=== PATIENT | female | born 1950 | race Caucasian/White ===

== ENCOUNTER → 2016-10-24 | Day surgery (SDC) | payer OTHER ==
--- NOTE | 2016-10-25 10:43 | PATH ---
Surgical Pathology Report Patient Name: MARIA L [facility]. Rec. #: [id number] /Age/Gender: 1950 (Age: 66) / F Account: [id number] Location: [facility] Taken: 10/24/2016 Received: 10/24/2016 Reported: 10/25/2016 Physicians: Renetta Mccord M.D. Specimen(s) Received A: LEFT BREAST SPECIMEN WITH CALCIFICATIONS B: LEFT BREAST SPECIMEN WITHOUT CALCIFICATIONS Clinical History Microcalcification, suspicious Final Diagnosis A. LEFT BREAST, WITH CALCIFICATION, STEREOTACTIC NEEDLE CORE BIOPSY: SCLEROSED FIBROADENOMA WITH STROMAL CALCIFICATION. B. LEFT BREAST, WITHOUT CALCIFICATION, STEREOTACTIC NEEDLE CORE BIOPSY: BREAST TISSUE WITH MARKED STROMAL SCLEROSIS SUGGESTIVE OF PORTION OF SCLEROSED FIBROADENOMA, AND ADDITIONAL PORTIONS OF BREAST TISSUE WITH FIBROCYSTIC CHANGES INCLUDING STROMAL FIBROSIS AND SCLEROSIS WITH DUCTAL DILATATION. Electronically Signed Jae Rossi M.D. Gross Description A. Received in formalin labeled "left breast with calcifications," is a 2.0 x 1.8 x 0.3 cm aggregate of multiple appiah-yellow, irregular to cylindrical portions of fibroadipose tissue. The formalin is filtered and the specimen is entirely submitted in one cassette. B. Received in formalin labeled "left breast without calcification," is a 1.5 x 1.4 x 0.3 cm aggregate of multiple appiah-yellow, irregular to cylindrical portions of fibroadipose tissue. The formalin is filtered and the specimen is entirely submitted in one cassette. Time to formalin fixation: 4 minutes Total formalin fixation time: Approximately 7 hours. 10/24/2016 saudi10/24/2016
== END | disposition home or self-care (01) ==
LOC: FMAMMOTONE 08:51
PROVIDERS: ATTEND Surgery
PROC: 0HBU3ZX Excision of Left Breast, Percutaneous Approach, Diagnostic (ICD-10-PCS; principal; 2016-10-24)
DX: D24.2 Benign neoplasm of left breast (principal); R92.1 Mammographic calcification found on diagnostic imaging of breast; N60.32 Fibrosclerosis of left breast; N64.89 Other specified disorders of breast
CPT/HCPCS: 19081; 88305-TC

== ENCOUNTER 2018-07-08 08:54 | Inpatient (IN) | payer OTHER ==
--- NOTE | 2018-07-08 09:09 | PDOC ---
History of Present Illness <Stella Freire - Last Filed: 07/08/18 12:20> - General History Source: Patient Exam Limitations: No Limitations - History of Present Illness Initial Comments: 07/08/18 10:16 The patient 63-year-old female with past medical history significant for CAD, asthma, hypercholesterolemia, insulin dependent diabetes, hypertension, recurrent urinary tract infections , nephrolithiasis s/p lithotripsy, osteoarthritis, obesity, who presents to the emergency department with complaints of fatigue, lower abdominal pain, diarrhea, nausea since returning from [place] 2 days ago, where she was on vacation x 1 month. She also complains of continued suprapubic pressure which is exacerbated with urination despite taking a 14 day course of antibiotics during her one month stay in [place]. Associated with lack of energy, generalized fatigue and nausea. She reports her abdominal pain is intermittent and localized to her lower abdomen. She reports a few episodes of loose stools which are yellow in color. She denies hematochezia. She reportedly took Imodium last night. She denies vomiting but reports nausea. Secondarily, she reports intermittent dizziness described as room spinning which was present while she was in [place], having been present for unclear duration of time.. She denies any exacerbating or alleviating factors of her dizziness. no known sick contacts. The patient denies chest pain, shortness of breath, headache, palpitations. The patient denies fever, chills, vomit, and constipation. Denies hematuria or blood BMs. Family History: Noncontributory Social History: Denies toxic habits Surgical history: MELANIE BSO, cholecystectomy Allergies: No known drug allergies PCP - Dr. Lang Painter And Body Mechanic Apprentice: Dr. Matias 07/08/18 12:53 <Corine Cornejo - Last Filed: 07/08/18 14:47> - General Chief Complaint: Pain, Acute Stated Complaint: ABD PAIN Time Seen by Provider: 07/08/18 09:06 Past History <Stella Freire - Last Filed: 07/08/18 12:20> - Past Medical History Asthma: Yes ("NO RECENT ATTACK") Diabetes: Yes HTN: Yes Hypercholesterolemia: Yes - Surgical History Appendectomy: Yes Cholecystectomy: Yes - Suicide/Smoking/Psychosocial Hx Smoking Status: No Smoking History: Never smoked Have you smoked in the past 12 months: No Number of Cigarettes Smoked Daily: 0 Hx Alcohol Use: No Drug/Substance Use Hx: No Substance Use Type: None Hx Substance Use Treatment: No <Corine Cornejo - Last Filed: 07/08/18 14:47> - Past Medical History Allergies/Adverse Reactions: Allergies Allergy/AdvReac Type Severity Reaction Status Date / Time No Known Drug Allergies Allergy Verified 02/14/15 09:39 Home Medications: Ambulatory Orders Atorvastatin Ca [Lipitor] 10 mg PO DAILY 08/04/13 Citalopram Hydrobromide [Celexa -] 20 mg PO DAILY 08/04/13 Insulin Detemir [Levemir Flexpen] 60 unit SQ BID 08/04/13 hydrOXYzine HCL [Atarax -] 25 mg PO DAILY 08/04/13 metFORMIN HCL [Glucophage] 1,000 mg PO DAILY 08/04/13 Aspirin [ASA -] 81 mg PO DAILY #0 02/14/15 Furosemide [Lasix -] 40 mg PO DAILY 02/14/15 Insulin (Levemir) [Levemir Flexpen -] 4 units SQ DAILY 02/14/15 Insulin Aspart [Novolog Flexpen] 10 unit SQ AC 02/14/15 Glipizide 5 mg PO DAILY 05/01/16 Lisinopril [Zestril] 20 mg PO DAILY 05/01/16 Metoprolol Succinate [Toprol Xl -] 25 mg PO DAILY 05/01/16 Oxybutynin Chloride [Oxybutynin Chloride ER] 15 mg PO DAILY 05/01/16 Salmeterol/Fluticasone [Advair 100Mcg/50Mcg -] 1 inh PO BID 05/01/16 Clopidogrel Bisulfate [Plavix -] 75 mg PO DAILY #30 tablet 05/03/16 Collagenase Clostridium Hist. [Santyl] 1 applic TP DAILY #90 applic 06/04/16 Collagenase Clostridium Hist. [Santyl] 1 applic TP DAILY #90 oint...g. 09/21/16 Clopidogrel Bisulfate [Plavix -] 75 mg PO DAILY #120 tablet 12/27/16 Clopidogrel Bisulfate [Plavix] 75 mg PO DAILY #120 tablet 07/31/17 Review of Systems - Review of Systems Able to Perform ROS?: Yes Comments:: 07/08/18 10:16 GENERAL/CONSTITUTIONAL: (+) generalized fatigue. No fever or chills. No weakness. no sweats. HEAD, EYES, EARS, NOSE AND THROAT: No change in vision or hearing. No ear pain or discharge. No sore throat or mouth pain. No difficulty swallowing. No congestion. CARDIOVASCULAR: No chest pain or palpitations, syncope or edema. RESPIRATORY: No SOB, cough, wheezing, or hemoptysis. GASTROINTESTINAL (+) nausea, abdominal pain, diarrhea. No vomiting. No constipation. No bloody stools. GENITOURINARY: (+) suprapubic pressure on urination. No hematuria, dysuria, frequency, urgency. MUSCULOSKELETAL: No joint or muscle swelling or pain. No neck or back pain. SKIN: No rash or changes in skin color or lesions. NEUROLOGIC:(+) dizziness. No headache, loss of consciousness, or change in strength/sensation. No gait instability. HEMATOLOGIC/LYMPHATIC: No anemia, easy bruising/bleeding, or history of blood clots. ALLERGIC/IMMUNOLOGIC: No allergies All other systems reviewed and negative, or as documented in HPI. <Corine Cornejo - Last Filed: 07/08/18 14:47> *Physical Exam - Vital Signs Last Vital Signs Temp Pulse Resp BP Pulse Ox 97.9 F 93 H 18 132/77 100 07/08/18 09:00 07/08/18 10:15 07/08/18 09:00 07/08/18 10:15 07/08/18 10:15 <Stella Freire - Last Filed: 07/08/18 12:20> - Physical Exam Comments: 07/08/18 10:16 General: malaised appearing. HEENT: NCAT, PERRL, EOMI, clear conjunctiva, anicteric, dry mucus membranes, clear oropharynx, no oral lesions.. Neck: neck supple, FROM Resp: CTAB, normal and even respirations, no respiratory distress CVS: irreg irreg, tachycardic. no murmurs, 2+ peripheral pulses throughout, no peripheral edema Abdomen: (+) obese. soft, diffuse tender in all regions, nonfocal, worse in Suprapubic region.. +karyn scar in RUQ. no rebound or guarding. No CVAT. Back: nontender, normal inspection and ROM MSK: no edema, MART x4, ROM intact. No clubbing or cyanosis. normal bulk and tone. Extremities: no calf tenderness Neuro: alert, oriented appropriately; no focal neurologic deficits Skin: cool dry skin to touch. cap refill <2 sec, normal color <ChantalCorine Issa - Last Filed: 07/08/18 14:47> Moderate Sedation - Procedure Monitoring Vital Signs: Procedure Monitoring Vital Signs Temperature 97.9 F 07/08/18 09:00 Pulse Rate 93 H 07/08/18 10:15 Respiratory Rate 18 07/08/18 09:00 Blood Pressure 132/77 07/08/18 10:15 O2 Sat by Pulse Oximetry (%) 100 07/08/18 10:15 <Stella Freire - Last Filed: 07/08/18 12:20> ED Treatment Course - LABORATORY CBC & Chemistry Diagram: 07/08/18 09:15 07/08/18 09:15 - ADDITIONAL ORDERS Additional order review: Laboratory Results 07/08/18 09:15 Sodium 143 Potassium 3.9 Chloride 111 H Carbon Dioxide 24 Anion Gap 8 BUN 27 H Creatinine 1.3 Creat Clearance w eGFR 40.73 Random Glucose 112 H Calcium 8.5 Total Bilirubin 0.2 AST 15 ALT 21 Alkaline Phosphatase 127 H Total Protein 6.5 Albumin 2.9 L Lipase 86 07/08/18 09:15 RBC 3.91 MCV 85.7 MCHC 33.6 RDW 16.0 H MPV 9.2 Neutrophils % 75.2 Lymphocytes % 13.9 D Monocytes % 9.1 Eosinophils % 1.3 Basophils % 0.5 - Medications Given in the ED: ED Medications Discontinued Medications Generic Name Dose Route Start Last Admin Trade Name Ludin PRN Reason Stop Dose Admin Diltiazem HCl 60 mg 07/08/18 09:33 07/08/18 09:45 Cardizem - PO 07/08/18 09:34 60 mg ONCE ONE Administration Diltiazem HCl 10 mg 07/08/18 09:33 07/08/18 09:45 Cardizem Injection - IVPUSH 07/08/18 09:34 10 mg ONCE ONE Administration Lactated Ringer's 1,000 ml 07/08/18 09:15 07/08/18 09:35 Lactated Ringers Solution IV 07/08/18 09:16 1,000 ml ONCE ONE Administration <Stella Freire - Last Filed: 07/08/18 12:20> - LABORATORY CBC & Chemistry Diagram: 07/08/18 09:15 07/08/18 09:15 <Corine Cornejo - Last Filed: 07/08/18 14:47> Medical Decision Making - Medical Decision Making 07/08/18 12:[address] Brandon, associate of patient's security test engineer, Dr. Matias. <Stella Freire - Last Filed: 07/08/18 12:20> - Medical Decision Making I, Corine Cornejo MD, attest that this document has been prepared under my direction and personally reviewed by me in its entirety. I further attest, that it accurately reflects all work, treatment, procedures and medical decision -making performed by me. See HPI for details Vital signs reviewed, afebrile, soft BP on rechecks - Afib RVR Prior notes reviewed, including admissions, discharges and consultations. laboratory results and imaging reviewed, basic labs and lytes notable for Leukocytosis of 14K; remainder of labs including lactic normal, less likely ischemia/infectious. Normal LFTs and coags. UA_positive for bacteria and WBCs, correlating with acute UTI. Cardiac panel_neg trop, reassuring. EKG Afib RVR in 130s, no interval abnormalities, narrow QRS, ST and T wave segments and morphology normal. Nonspecific T wave abnormalities ED course: IV diltiazem followed by PO dosing, IVF hydration for the soft BP and allow toleration of CCB. Cards cs with Dr Matias/Aleksandr. Will come to see. ORI VASC score >1, will likely need AC. on telemetry, remains rate controlled. Stool studies C diff PCR ordered awaiting sample, given recent abx use, r/o C diff colitis. CT a/p neg for acute pathology. No bowel wall edema, perf or obstruction. Correlating findings with diarrheal illness UTI treated with IV ceftriaxone, f/u cultures Admit for new onset Afib RVR, dehydration/fatigue, diarrhea/AP, UTI, r/o c diff. admit to Dr Jasmine. 07/08/18 13:58 07/08/18 14:01 07/08/18 14:46 07/08/18 14:47 <Corine Cornejo - Last Filed: 07/08/18 14:47> *DC/Admit/Observation/Transfer - Attestations Scribe Attestion: 07/08/18 10:24 Documentation prepared by Stella Freire, acting as medical care administrator for Corine Cornejo MD <Stella Freire - Last Filed: 07/08/18 12:20> - Discharge Dispostion Decision to Admit order: Yes Decision to Admit order Date/Time: 07/08/18 10:01 Decision to Admit Order Category Date Time Status Decision to Admit to Hospital Routine Admission 07/08/18 10:00 Ordered <Corine Cornejo - Last Filed: 07/08/18 14:47> Diagnosis at time of Disposition: Atrial fibrillation with RVR, Abdominal pain, Leukocytosis, UTI (urinary tract infection) - Discharge Dispostion Condition at time of disposition: Guarded
[2018-07-08] MEDS ORDERED: LACTATED RINGERS SOLUTION 1000 ML INFUS.BAG IV ONE (09:15)
[2018-07-08 09:24] LABS: BASO % 0.5 % (0-2.0); EOS % 1.3 % (0-4.5); HEMATOCRIT 33.5 % (32.4-45.2); HEMOGLOBIN 11.3 GM/dL (10.7-15.3); LYMPH % 13.9 % (8-40); MCH 28.8 pg (25.7-33.7); MCHC 33.6 g/dl (32.0-36.0); MEAN CELL VOLUME 85.7 fl (80-96); MEAN PLT VOLUME 9.2 fl (7.5-11.1); MONO % 9.1 % (3.8-10.2); NEUT % 75.2 % (42.8-82.8); PLATELET COUNT 314 K/MM3 (134-434); RBC 3.91 M/mm3 (3.60-5.2); WHITE BLOOD COUNT 14.1 K/mm3 (4.0-10.0)
[2018-07-08] MEDS ORDERED: dilTIAZem HCL 50 MG/10 ML - 10 ML VIAL IVPUSH ONE (09:33)
[2018-07-08] MEDS ORDERED: dilTIAZem HCL 60 MG TABLET (FP) PO ONE (09:33)
[2018-07-08] MEDS ORDERED: dilTIAZem HCL 60 MG TABLET (FP) ONE (09:42)
[2018-07-08] MEDS ORDERED: dilTIAZem HCL 125 MG/25 ML - 25 ML VIAL ONE (09:42)
[2018-07-08 09:52] LABS: ALBUMIN 2.9 g/dl (3.4-5.0); ALK PHOS 127 U/L (45-117); ANION GAP 8 MMOL/L (8-16); BILIRUBIN,TOTAL 0.2 mg/dL (0.2-1); BLOOD UREA NITROGEN 27 mg/dL (7-18); CALCIUM 8.5 mg/dL (8.5-10.1); CHLORIDE 111 mmol/L (98-107); CO2 24 mmol/L (21-32); CREATININE 1.3 mg/dL (0.55-1.3); GLUCOSE,RANDOM 112 mg/dL (74-106); LIPASE 86 U/L (73-393); POTASSIUM 3.9 mmol/L (3.5-5.1); SGOT/AST 15 U/L (15-37); SGPT/ALT 21 U/L (13-61); SODIUM 143 mmol/L (136-145); TOT PROT 6.5 g/dl (6.4-8.2)
[2018-07-08 10:43] LABS: INR 1.03 (0.83-1.09); PROTHROMBIN TIME (PATIENT) 12.1 SEC (9.7-13.0)
[2018-07-08 10:53] LABS: MAGNESIUM 2.2 mg/dL (1.8-2.4); PHOSPHOROUS 2.4 mg/dL (2.5-4.9)
[2018-07-08 14:14] LABS: URINE APPEARANCE SLCLOUDY; URINE BILIRUBIN NEGATIVE (<2.0 mg/dL); URINE COLOR LTYELLOW; URINE GLUCOSE (UA) NEGATIVE (NEGATIVE); URINE KETONE NEGATIVE (NEGATIVE); URINE LEUK ESTERASE 2+ (NEGATIVE); URINE NITRITE POSITIVE (NEGATIVE); URINE PROTEIN NEGATIVE (NEGATIVE); URINE UROBILINOGEN NEGATIVE mg/dL (0.2-1.0)
[2018-07-08 14:21] LABS: EPI CELLS FEW /HPF (FEW); URINE BACTERIA MODERATE /hpf (NONE SEEN); URINE MUCUS RARE
--- NOTE | 2018-07-08 14:32 | EKG ---
Test Reason : Blood Pressure : / mmHG Vent. Rate : 135 BPM Atrial Rate : 141 BPM P-R Int : 000 ms QRS Dur : 088 ms QT Int : 326 ms P-R-T Axes : 000 -07 170 degrees QTc Int : 489 ms ATRIAL FIBRILLATION WITH RAPID VENTRICULAR RESPONSE MODERATE VOLTAGE CRITERIA FOR LVH, MAY BE NORMAL VARIANT ABNORMAL ECG Confirmed by Nas Timmons MD ([id number]) on 07/08/2018 2:31:51 PM Referred By: Confirmed By:Nas Timmons MD
[2018-07-08] MEDS: CEFTRIAXONE 1,000 MG in DEXTROSE 5%-WATER - 50 ML IVPB ONE ×2 (15:31→16:02)
--- NOTE | 2018-07-08 15:48 | CON.CARD ---
Consult Consult Specialty:: cardio - History of Present Illness Chief Complaint: abd pain History of Present Illness: 68 F here with abd pain. h/o recurrent urinary tract infections , nephrolithiasis s/p lithotripsy. c/o fatigue, lower abdominal/suprapubic pain worse on urination, diarrhea, nausea. hi WBC in ER with UA c/w UTI. noted to be in rapid AFib--given diltiazem IV then PO, HR improved. pt denies cp, sob, orthopnea, palpitations. ditto at home. 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 asthma HTN HPL DM obesity, ABE - Past Medical History ...: No - Alcohol/Substance Use Hx Alcohol Use: No - Smoking History Smoking history: Never smoked Have you smoked in the past 12 months: No Aproximately how many cigarettes per day: 0 Home Medications - Allergies Allergies/Adverse Reactions: Allergies Allergy/AdvReac Type Severity Reaction Status Date / Time No Known Drug Allergies Allergy Verified 02/14/15 09:39 - Home Medications Home Medications: Ambulatory Orders Atorvastatin Ca [Lipitor] 10 mg PO DAILY 08/04/13 Citalopram Hydrobromide [Celexa -] 20 mg PO DAILY 08/04/13 Insulin Detemir [Levemir Flexpen] 60 unit SQ BID 08/04/13 hydrOXYzine HCL [Atarax -] 25 mg PO DAILY 08/04/13 metFORMIN HCL [Glucophage] 1,000 mg PO DAILY 08/04/13 Aspirin [ASA -] 81 mg PO DAILY #0 02/14/15 Furosemide [Lasix -] 40 mg PO DAILY 02/14/15 Insulin (Levemir) [Levemir Flexpen -] 4 units SQ DAILY 02/14/15 Insulin Aspart [Novolog Flexpen] 10 unit SQ AC 02/14/15 Glipizide 5 mg PO DAILY 05/01/16 Lisinopril [Zestril] 20 mg PO DAILY 05/01/16 Metoprolol Succinate [Toprol Xl -] 25 mg PO DAILY 05/01/16 Oxybutynin Chloride [Oxybutynin Chloride ER] 15 mg PO DAILY 05/01/16 Salmeterol/Fluticasone [Advair 100Mcg/50Mcg -] 1 inh PO BID 05/01/16 Clopidogrel Bisulfate [Plavix -] 75 mg PO DAILY #30 tablet 05/03/16 Collagenase Clostridium Hist. [Santyl] 1 applic TP DAILY #90 applic 06/04/16 Collagenase Clostridium Hist. [Santyl] 1 applic TP DAILY #90 oint...g. 09/21/16 Clopidogrel Bisulfate [Plavix -] 75 mg PO DAILY #120 tablet 12/27/16 Clopidogrel Bisulfate [Plavix] 75 mg PO DAILY #120 tablet 07/31/17 Family Disease History - Family Disease History Family History: Denies (no known cmp) Review of Systems - Review of Systems Constitutional: denies: Chills, Fever Eyes: denies: Eye Pain HENT: denies: Nasal Congestion Neck: denies: Stiffness Cardiovascular: denies: Palpitations Respiratory: denies: Orthopnea, PND Gastrointestinal: reports: Abdominal Pain, Nausea. denies: Diarrhea, Rectal Bleeding Genitourinary: reports: Dysuria. denies: Hematuria Musculoskeletal: denies: Muscle Pain Integumentary: denies: Rash Neurological: denies: Numbness, Seizure, Syncope Endocrine: denies: Excessive Sweating Hematology/Lymphatic: denies: Excessive Bleeding Vital Signs: Vital Signs Temperature 98.0 F 07/08/18 14:40 Pulse Rate 111 H 07/08/18 14:40 Respiratory Rate 18 07/08/18 14:40 Blood Pressure 104/41 L 07/08/18 14:40 O2 Sat by Pulse Oximetry (%) 98 07/08/18 14:40 Constitutional: Yes: Well Nourished, No Distress Eyes: No: Sclera Icterus HENT: No: Nasal Congestion Neck: No: Decreased ROM Respiratory: Yes: CTA Bilaterally. No: Accessory Muscle Use, Rales, Wheezes Gastrointestinal: Yes: Normal Bowel Sounds. No: Distention, Hepatomegaly, Palpable Mass, Tenderness Cardiovascular: Yes: Pulse Irregular JVD: Yes Carotid Bruit: No PMI: Non-Displaced Heart Sounds: Yes: S1, S2. No: Gallop Murmur: No: Systolic Murmur, Diastolic Murmur Musculoskeletal: Yes: Other (No kyphosis) Extremities: No: Cool, Cyanosis Edema: No Peripheral Pulses: 2+ Left Carotid, 2+ Right Carotid, 2+ Left Doralis Pedis, 2+ Right Dorsalis Pedis Integumentary: No: Jaundice Neurological: Yes: Alert, Oriented (x3) Psychiatric: No: Agitated - Other Data Labs, Other Data: CBC, BMP 07/08/18 09:15 07/08/18 09:15 INR, PTT INR 1.03 (0.83-1.09) 07/08/18 10:06 Troponin, BNP 07/08/18 09:15 Troponin I < 0.02 Troponin, BNP 07/08/18 09:15 Troponin I < 0.02 Assessment/Plan L/RHC 2016: wedge 18 (down to 12 after nitro); PA 40/20 (down to 25/15 after nitro); RA 10; nl EF; mild diffuse CAD (nonobstructive) Echo 07/18: 1. This was a technically difficult study with suboptimal views. 2. The left ventricle is mildly dilated. 3. Overall left ventricular systolic function appears mildly impaired with a visually estimated EF between 45 - 50 %.Small's EF calculation is 46%.Global hypokinesis present. 4. LA pressure is probably elevated. 5. The right ventricle is normal in size and function. 6. Left atrium is moderately dilated by volume. 7. Patent foramen ovale cannot be excluded, as there is a question of flow across the interatrial septum in some views. 8. Mild mitral regurgitation is present. 9. Unable to estimate RVSP due to inadequate TR jet spectral doppler profile. 10. Aortic arch is normal in size; laminar atherosclerotic plaque present. Afib: -new AF here, with rapid HR--improved with diltiazem in ER -will change to standing po metoprolol given pt with incipient systolic CHF-- metopr tartrate 25 QID for now, while observe response and BP stability. -CHADS VASC = 5. benefits of AC for stroke prevention are >> risks here. d/w'd dr campbell (ER)--no invasive procedures anticipated, no suspicion for obstructing kidney stone. d/w'd pharmacy--est'd creat clearance is > 50. will start xarelto 20 qd (qd dosing to maximize compliance). -stop plavix (on this for PAD sec prevention--NOAC is sufficient). -check rpt echo for EF acute on chronic mixed syst/diast CHF: -pt previuosly with HFpEF syndrome treated with lasix 40 qd-->req'd incr to 80 qd in 11/15 for sob and volume excess, with improvement. did not f/u with us ( including for BMP monitoring) since then -07/18 with echo showing new (mild) global LV syst dysfunction, likely due to chronically uncontrolled DM or ABE (not treated)--pt referred for tx of both with specialists -home meds: lisinopril 20 qd, lasix 80 qd - currently denies sob but neck veins up--likely related to rapid AF in predisposed HF pt. - received 1 L IVF in ER to pre-hydrate for CT abd/pelvis with IV contrast. d/w' d dr campbell in ER--no more IVF. hold lasix for now as no resp compromise. will start lasix 80 po qd (outpt dose) in am HTN: -soft BP at times, ? due to infection (UTI) -BB (for afib)--observe BP, hold home FRANDY for now HPL: -cont home atorva 10 DM: -on insulin, poor control historically -per hospitalist UTI: -per hospitalist
[2018-07-08] MEDS ORDERED: CEFTRIAXONE 1 GM/50 ML BAG ONE (15:55)
[2018-07-08] MEDS ORDERED: PT OWN MED DRAWER 7, Y5N ONE (17:15)
[2018-07-08] MEDS ORDERED: METOPROLOL TARTRATE 25 MG TABLET (FP) ONE (17:18)
[2018-07-08] MEDS: METOPROLOL TARTRATE 25 MG TABLET (FP) PO SCH ×2 (17:19→22:00)
--- NOTE | 2018-07-08 17:45 | HP ---
CHIEF COMPLAINT: lower abdominal pain PCP: Dr Hollingsworth HISTORY OF PRESENT ILLNESS: Patient is a 68 year old female with a significant past medical history of CAD, asthma, hypercholesterolemia, insulin dependent diabetes, hypertension, recurrent urinary tract infections, nephrolithiasis s/p lithotripsy, osteoarthritis, obesity, and left great toe gangrene (s/p angiogram 2016). Patient presents to the ED today with complaints of worsening fatigue, lower abdominal pain, diarrhea, nausea since returning from [place] 2 days ago. Patient was in [place] for about 1 month for the holidays. Patient sought medical attention in [place] and was diagnosed with a UTI. She was given antibiotics and continued them for 10 days but stopped them when they made her feel lightheaded. Patient continued to have generalized fatigue and nausea and still having lower abdominal pain. Patient reports a few episodes of loose stools but denies hematochezia. In the ED she was also noted to be in rapid afib in the 140s. ER course was notable for: (1)ekg atrial fib with rvr 141 (2)abd ct/pelvis: mildly increase intraluminal fluid seen within the colon, several distal small bowel loops may be on the basis of diarrheal illness. (3)wbc 14.1, blood/urine cultures pending Recent Travel: PAST MEDICAL/SURGICAL HISTORY: CAD, asthma, hypercholesterolemia, insulin dependent diabetes, hypertension, recurrent urinary tract infections, nephrolithiasis s/p lithotripsy, osteoarthritis, obesity, and left great toe gangrene (s/p angiogram 2016). Social History: Smoking: denies Alcohol:denies Drugs: denies Family History: Allergies No Known Drug Allergies Allergy (Verified 02/14/15 09:39) HOME MEDICATIONS: Home Medications Medication Instructions Recorded Atorvastatin Ca [Lipitor] 10 mg PO DAILY 08/04/13 Citalopram Hydrobromide [Celexa -] 20 mg PO DAILY 08/04/13 Insulin Detemir [Levemir Flexpen] 60 unit SQ BID 08/04/13 hydrOXYzine HCL [Atarax -] 25 mg PO DAILY 08/04/13 metFORMIN HCL [Glucophage] 1,000 mg PO DAILY 08/04/13 Aspirin [ASA -] 81 mg PO DAILY #0 02/14/15 Furosemide [Lasix -] 40 mg PO DAILY 02/14/15 Insulin (Levemir) [Levemir Flexpen 4 units SQ DAILY 02/14/15 -] Insulin Aspart [Novolog Flexpen] 10 unit SQ AC 02/14/15 Glipizide 5 mg PO DAILY 05/01/16 Lisinopril [Zestril] 20 mg PO DAILY 05/01/16 Metoprolol Succinate [Toprol Xl -] 25 mg PO DAILY 05/01/16 Oxybutynin Chloride [Oxybutynin 15 mg PO DAILY 05/01/16 Chloride ER] Salmeterol/Fluticasone [Advair 1 inh PO BID 05/01/16 100Mcg/50Mcg -] Clopidogrel Bisulfate [Plavix -] 75 mg PO DAILY #30 tablet 05/03/16 Collagenase Clostridium Hist. 1 applic TP DAILY #90 applic 06/04/16 [Santyl] Collagenase Clostridium Hist. 1 applic TP DAILY #90 oint...g. 09/21/16 [Santyl] Clopidogrel Bisulfate [Plavix -] 75 mg PO DAILY #120 tablet 12/27/16 Clopidogrel Bisulfate [Plavix] 75 mg PO DAILY #120 tablet 07/31/17 PHYSICAL EXAMINATION Vital Signs - 24 hr 07/08/18 07/08/18 07/08/18 09:00 09:18 09:40 Temperature 97.9 F Pulse Rate 114 H Pulse Rate [ 133 H Right Radial] Respiratory 18 Rate Blood Pressure 99/63 Blood Pressure 108/80 [Left Arm] O2 Sat by Pulse 100 100 98 Oximetry (%) 07/08/18 07/08/18 07/08/18 10:15 10:40 14:40 Temperature 98.0 F 98.0 F Pulse Rate Pulse Rate [ 93 H 98 H 111 H Right Radial] Respiratory 20 18 Rate Blood Pressure Blood Pressure 132/77 103/50 L 104/41 L [Left Arm] O2 Sat by Pulse 100 98 98 Oximetry (%) 07/08/18 17:20 Temperature Pulse Rate 105 H Pulse Rate [ Right Radial] Respiratory 20 Rate Blood Pressure 117/74 Blood Pressure [Left Arm] O2 Sat by Pulse Oximetry (%) GENERAL: Awake, alert, and fully oriented, in no acute distress. HEAD: Normal with no signs of trauma. EYES: Pupils equal, round and reactive to light, extraocular movements intact, sclera anicteric, conjunctiva clear. No lid lag. EARS, NOSE, THROAT: Ears normal, nares patent, oropharynx clear without exudates. Moist mucous membranes. NECK: Normal range of motion, supple without lymphadenopathy, JVD, or masses. LUNGS: Breath sounds equal, clear to auscultation bilaterally. No wheezes, and no crackles. No accessory muscle use. HEART: Regular rate and rhythm, normal S1 and S2 without murmur, rub or gallop. ABDOMEN: Soft, tender on lower quadrants MUSCULOSKELETAL: Normal range of motion at all joints. No bony deformities or tenderness. No CVA tenderness. UPPER EXTREMITIES: 2+ pulses, warm, well-perfused. No cyanosis. No clubbing. No peripheral edema. LOWER EXTREMITIES: 2+ pulses, warm, well-perfused. No calf tenderness. No peripheral edema. NEUROLOGICAL: Cranial nerves II-XII intact. Normal speech. Normal gait. PSYCHIATRIC: Cooperative. Good eye contact. Appropriate mood and affect. SKIN: Warm, dry, normal turgor, no rashes or lesions noted, normal capillary refill. Laboratory Results - last 24 hr 07/08/18 07/08/18 07/08/18 09:15 09:15 09:15 WBC 14.1 H RBC 3.91 Hgb 11.3 Hct 33.5 MCV 85.7 MCH 28.8 MCHC 33.6 RDW 16.0 H Plt Count 314 MPV 9.2 Absolute Neuts (auto) 10.6 H Neutrophils % 75.2 Lymphocytes % 13.9 D Monocytes % 9.1 Eosinophils % 1.3 Basophils % 0.5 Nucleated RBC % 0 PT with INR INR PTT (Actin FS) Sodium 143 Potassium 3.9 Chloride 111 H Carbon Dioxide 24 Anion Gap 8 BUN 27 H Creatinine 1.3 Creat Clearance w eGFR 40.73 Random Glucose 112 H Lactic Acid Calcium 8.5 Phosphorus 2.4 L Magnesium 2.2 Total Bilirubin 0.2 AST 15 ALT 21 Alkaline Phosphatase 127 H Troponin I < 0.02 Total Protein 6.5 Albumin 2.9 L Lipase 86 TSH 2.42 Urine Color Urine Appearance Urine pH Ur Specific [place] Urine Protein Urine Glucose (UA) Urine Ketones Urine Blood Urine Nitrite Urine Bilirubin Urine Urobilinogen Ur Leukocyte Esterase Urine WBC (Auto) Urine RBC (Auto) Ur Epithelial Cells Urine Bacteria Urine Mucus Blood Type Antibody Screen 07/08/18 07/08/18 07/08/18 10:06 10:06 10:06 WBC RBC Hgb Hct MCV MCH MCHC RDW Plt Count MPV Absolute Neuts (auto) Neutrophils % Lymphocytes % Monocytes % Eosinophils % Basophils % Nucleated RBC % PT with INR 12.10 INR 1.03 PTT (Actin FS) 28.1 Sodium Potassium Chloride Carbon Dioxide Anion Gap BUN Creatinine Creat Clearance w eGFR Random Glucose Lactic Acid Calcium Phosphorus Magnesium Total Bilirubin AST ALT Alkaline Phosphatase Troponin I Total Protein Albumin Lipase TSH Urine Color Urine Appearance Urine pH Ur Specific [place] Urine Protein Urine Glucose (UA) Urine Ketones Urine Blood Urine Nitrite Urine Bilirubin Urine Urobilinogen Ur Leukocyte Esterase Urine WBC (Auto) Urine RBC (Auto) Ur Epithelial Cells Urine Bacteria Urine Mucus Blood Type B POSITIVE Antibody Screen Negative 07/08/18 07/08/18 10:06 14:00 WBC RBC Hgb Hct MCV MCH MCHC RDW Plt Count MPV Absolute Neuts (auto) Neutrophils % Lymphocytes % Monocytes % Eosinophils % Basophils % Nucleated RBC % PT with INR INR PTT (Actin FS) Sodium Potassium Chloride Carbon Dioxide Anion Gap BUN Creatinine Creat Clearance w eGFR Random Glucose Lactic Acid 1.3 Calcium Phosphorus Magnesium Total Bilirubin AST ALT Alkaline Phosphatase Troponin I Total Protein Albumin Lipase TSH Urine Color Ltyellow Urine Appearance Slcloudy Urine pH 5.0 Ur Specific [place] 1.047 H Urine Protein Negative Urine Glucose (UA) Negative Urine Ketones Negative Urine Blood Negative Urine Nitrite Positive Urine Bilirubin Negative Urine Urobilinogen Negative Ur Leukocyte Esterase 2+ H Urine WBC (Auto) 27 Urine RBC (Auto) 3 Ur Epithelial Cells Few Urine Bacteria Moderate Urine Mucus Rare Blood Type Antibody Screen ASSESSMENT/PLAN: Patient is a 68 year old female with a significant past medical history of CAD, asthma, hypercholesterolemia, insulin dependent diabetes, hypertension, recurrent urinary tract infections, nephrolithiasis s/p lithotripsy, osteoarthritis, obesity, and left great toe gangrene (s/p angiogram 2016). Patient presents to the ED today with complaints of worsening fatigue, lower abdominal pain, diarrhea, nausea since returning from [place] 2 days ago. Patient was in [place] for about 1 month for the holidays. Patient sought medical attention in [place] and was diagnosed with a UTI. She was given antibiotics and continued them for 10 days but stopped them when they made her feel lightheaded. Patient continued to have generalized fatigue and nausea and still having lower abdominal pain. Patient reports a few episodes of loose stools but denies hematochezia. In the ED she was also noted to be in rapid afib in the 140s. ID: Rule out sepsis, blood and urine cultures pending Monitor labs, vitals Rule out c diff, was on antibiotics in [place], then developed diarrhea monitor blood and cultures results Card: New onset atrial fibrillation with RVR, started on xarelto Monitor on tele to assure she is more controlled, on metoprolol qid. monitor on tele for new onset afib trend troponins x 3 Cardiology following : UTI, unresolved Failed outpatient therapy for UTI Still symptomatic, with +UA and UC pending sensitivities Start Ceftriaxone Endocrine: Diabetes Start Novolog and monitor bgms. fen: dehydration, on gentle ivf monitor electrolytes diabetic diet prophy started on xarelto Visit type - Emergency Visit Emergency Visit: Yes ED Registration Date: 07/08/18 Care time: The patient presented to the Emergency Department on the above date and was hospitalized for further evaluation of their emergent condition. - New Patient This patient is new to me today: Yes Date on this admission: 07/09/18 - Critical Care Critical Care patient: No
[2018-07-08] MEDS ORDERED: RIVAROXABAN 15 MG TABLET PO SCH (18:00)
[2018-07-08] MEDS: RIVAROXABAN 20 MG TABLET PO SCH (18:10)
[2018-07-08] MEDS: ATORVASTATIN CA 10 MG TABLET (FP) PO SCH (22:00)
[2018-07-08] MEDS: ACETAMINOPHEN 325 MG TABLET (FP) PO PRN (22:00)
[2018-07-08] MEDS ORDERED: metoPROLOL SUCCINATE 25 MG TAB.SR.24H (FP) PO SCH (22:00)
[2018-07-08] MEDS: INSULIN SLIDING SCALE (NOVOLOG) 1 VIAL SQ SCH (22:01)
[2018-07-08] MEDS ORDERED: SODIUM CHLORIDE 1,000 ML IV SCH (22:15)
[2018-07-09 02:33] LABS: MAGNESIUM 2.2 mg/dL (1.8-2.4)
[2018-07-09] MEDS: FUROSEMIDE 40 MG TABLET (FP) PO SCH ×2 (06:13→11:10)
[2018-07-09] MEDS: INSULIN SLIDING SCALE (NOVOLOG) 1 VIAL SQ SCH ×4 (06:13→22:24)
[2018-07-09 07:45] LABS: BASO % 0.7 % (0-2.0); EOS % 3.5 % (0-4.5); HEMATOCRIT 31.4 % (32.4-45.2); HEMOGLOBIN 9.8 GM/dL (10.7-15.3); LYMPH % 24.6 % (8-40); MCH 27.1 pg (25.7-33.7); MCHC 31.3 g/dl (32.0-36.0); MEAN CELL VOLUME 86.6 fl (80-96); MEAN PLT VOLUME 9.3 fl (7.5-11.1); MONO % 7.5 % (3.8-10.2); NEUT % 63.7 % (42.8-82.8); PLATELET COUNT 264 K/MM3 (134-434); RBC 3.63 M/mm3 (3.60-5.2); RDW 15.7 % (11.6-15.6); WHITE BLOOD COUNT 9.8 K/mm3 (4.0-10.0)
[2018-07-09 08:16] LABS: ALBUMIN 2.8 g/dl (3.4-5.0); ALK PHOS 113 U/L (45-117); ANION GAP 6 MMOL/L (8-16); BILIRUBIN,TOTAL 0.3 mg/dL (0.2-1); BLOOD UREA NITROGEN 22 mg/dL (7-18); CALCIUM 8.4 mg/dL (8.5-10.1); CHLORIDE 110 mmol/L (98-107); CHOLESTEROL 117 mg/dL (50-200); CO2 26 mmol/L (21-32); GLUCOSE,RANDOM 126 mg/dL (74-106); HDL CHOLESTEROL 27 mg/dL (40-60); POTASSIUM 4.3 mmol/L (3.5-5.1); SGOT/AST 14 U/L (15-37); SGPT/ALT 18 U/L (13-61); SODIUM 143 mmol/L (136-145); TOT PROT 6.1 g/dl (6.4-8.2); TRIGLYCERIDES 159 mg/dL (0-150)
[2018-07-09] MEDS ORDERED: DEXTROSE 5%-WATER - 50 ML IVPB ONE ×2 (08:58→17:22)
[2018-07-09] MEDS ORDERED: cefTRIAXone SODIUM 1 GM VIAL ONE (08:58)
[2018-07-09] MEDS: METOPROLOL TARTRATE 25 MG TABLET (FP) PO SCH (09:15)
[2018-07-09] MEDS ORDERED: METOPROLOL TARTRATE 5 MG/5 ML VIAL IVPUSH ONE (09:22)
--- NOTE | 2018-07-09 09:24 | PN ---
Physical Exam: SUBJECTIVE: Patient seen and examined at the bedside. OBJECTIVE: afib with rvr 140s, lopressor 5mg iv x 1 now patient is asymptomatic, denies chest pain, does not feel her heart racing urine culture with >100k colonies, on ceftriaxone. awaiting sensitivities. Vital Signs Period Temp Pulse Resp BP Sys/Krishnan Pulse Ox Last 24 Hr 98 F-98.8 F 93-133 18-20 103-143/41-80 98-100 GENERAL: The patient is awake, alert, and fully oriented, in no acute distress. HEAD: Normal with no signs of trauma. EYES: PERRL, extraocular movements intact, sclera anicteric, conjunctiva clear. No ptosis. ENT: Ears normal, nares patent, oropharynx clear without exudates, moist mucous membranes. NECK: Trachea midline, full range of motion, supple. LUNGS: Breath sounds equal, clear to auscultation bilaterally, no wheezes, no crackles, no accessory muscle use. HEART: patient is asymptomatic, denies chest pain, does not feel her heart racing ABDOMEN: Soft, nontender, nondistended, normoactive bowel sounds, no guarding, no rebound, no hepatosplenomegaly, no masses. EXTREMITIES: no edema. left great toe scarring s/o great toe gangrene, was santyl NEUROLOGICAL: Normal speech, gait not observed. PSYCH: Normal mood, normal affect. SKIN: Warm, dry, normal turgor, no rashes or lesions noted Laboratory Results - last 24 hr 07/08/18 07/08/18 07/08/18 09:15 09:15 09:15 WBC 14.1 H RBC 3.91 Hgb 11.3 Hct 33.5 MCV 85.7 MCH 28.8 MCHC 33.6 RDW 16.0 H Plt Count 314 MPV 9.2 Absolute Neuts (auto) 10.6 H Neutrophils % 75.2 Lymphocytes % 13.9 D Monocytes % 9.1 Eosinophils % 1.3 Basophils % 0.5 Nucleated RBC % 0 PT with INR INR PTT (Actin FS) Sodium 143 Potassium 3.9 Chloride 111 H Carbon Dioxide 24 Anion Gap 8 BUN 27 H Creatinine 1.3 Creat Clearance w eGFR 40.73 POC Glucometer Random Glucose 112 H Lactic Acid Calcium 8.5 Phosphorus 2.4 L Magnesium 2.2 Total Bilirubin 0.2 AST 15 ALT 21 Alkaline Phosphatase 127 H Troponin I < 0.02 Total Protein 6.5 Albumin 2.9 L Triglycerides Cholesterol Total LDL Cholesterol HDL Cholesterol Lipase 86 TSH 2.42 Urine Color Urine Appearance Urine pH Ur Specific [place] Urine Protein Urine Glucose (UA) Urine Ketones Urine Blood Urine Nitrite Urine Bilirubin Urine Urobilinogen Ur Leukocyte Esterase Urine WBC (Auto) Urine RBC (Auto) Ur Epithelial Cells Urine Bacteria Urine Mucus Blood Type Antibody Screen 07/08/18 07/08/18 07/08/18 10:06 10:06 10:06 WBC RBC Hgb Hct MCV MCH MCHC RDW Plt Count MPV Absolute Neuts (auto) Neutrophils % Lymphocytes % Monocytes % Eosinophils % Basophils % Nucleated RBC % PT with INR 12.10 INR 1.03 PTT (Actin FS) 28.1 Sodium Potassium Chloride Carbon Dioxide Anion Gap BUN Creatinine Creat Clearance w eGFR POC Glucometer Random Glucose Lactic Acid Calcium Phosphorus Magnesium Total Bilirubin AST ALT Alkaline Phosphatase Troponin I Total Protein Albumin Triglycerides Cholesterol Total LDL Cholesterol HDL Cholesterol Lipase TSH Urine Color Urine Appearance Urine pH Ur Specific [place] Urine Protein Urine Glucose (UA) Urine Ketones Urine Blood Urine Nitrite Urine Bilirubin Urine Urobilinogen Ur Leukocyte Esterase Urine WBC (Auto) Urine RBC (Auto) Ur Epithelial Cells Urine Bacteria Urine Mucus Blood Type B POSITIVE Antibody Screen Negative 07/08/18 07/08/18 07/08/18 10:06 14:00 20:30 WBC RBC Hgb Hct MCV MCH MCHC RDW Plt Count MPV Absolute Neuts (auto) Neutrophils % Lymphocytes % Monocytes % Eosinophils % Basophils % Nucleated RBC % PT with INR INR PTT (Actin FS) Sodium Potassium Chloride Carbon Dioxide Anion Gap BUN Creatinine Creat Clearance w eGFR POC Glucometer Random Glucose Lactic Acid 1.3 Calcium Phosphorus Magnesium Total Bilirubin AST ALT Alkaline Phosphatase Troponin I Total Protein Albumin Triglycerides Cholesterol Total LDL Cholesterol HDL Cholesterol Lipase TSH Urine Color Ltyellow Urine Appearance Slcloudy Urine pH 5.0 Ur Specific [place] 1.047 H Urine Protein Negative Urine Glucose (UA) Negative Urine Ketones Negative Urine Blood Negative Urine Nitrite Positive Urine Bilirubin Negative Urine Urobilinogen Negative Ur Leukocyte Esterase 2+ H Urine WBC (Auto) 27 Urine RBC (Auto) 3 Ur Epithelial Cells Few Urine Bacteria Moderate Urine Mucus Rare Blood Type B POSITIVE Antibody Screen 07/08/18 07/08/18 07/09/18 20:30 21:05 05:30 WBC 9.8 RBC 3.63 Hgb 9.8 L Hct 31.4 L MCV 86.6 MCH 27.1 MCHC 31.3 L RDW 15.7 H Plt Count 264 MPV 9.3 Absolute Neuts (auto) 6.3 Neutrophils % 63.7 Lymphocytes % 24.6 D Monocytes % 7.5 Eosinophils % 3.5 D Basophils % 0.7 Nucleated RBC % 0 PT with INR INR PTT (Actin FS) Sodium Potassium Chloride Carbon Dioxide Anion Gap BUN Creatinine Creat Clearance w eGFR POC Glucometer 185 Random Glucose Lactic Acid Calcium Phosphorus Magnesium 2.2 Total Bilirubin AST ALT Alkaline Phosphatase Troponin I < 0.02 Total Protein Albumin Triglycerides Cholesterol Total LDL Cholesterol HDL Cholesterol Lipase TSH Urine Color Urine Appearance Urine pH Ur Specific [place] Urine Protein Urine Glucose (UA) Urine Ketones Urine Blood Urine Nitrite Urine Bilirubin Urine Urobilinogen Ur Leukocyte Esterase Urine WBC (Auto) Urine RBC (Auto) Ur Epithelial Cells Urine Bacteria Urine Mucus Blood Type Antibody Screen 07/09/18 07/09/18 05:30 06:00 WBC RBC Hgb Hct MCV MCH MCHC RDW Plt Count MPV Absolute Neuts (auto) Neutrophils % Lymphocytes % Monocytes % Eosinophils % Basophils % Nucleated RBC % PT with INR INR PTT (Actin FS) Sodium 143 Potassium 4.3 Chloride 110 H Carbon Dioxide 26 Anion Gap 6 L BUN 22 H Creatinine 1.0 Creat Clearance w eGFR 55.14 POC Glucometer 141 Random Glucose 126 H Lactic Acid Calcium 8.4 L Phosphorus Magnesium Total Bilirubin 0.3 AST 14 L ALT 18 Alkaline Phosphatase 113 Troponin I Total Protein 6.1 L Albumin 2.8 L Triglycerides 159 H Cholesterol 117 Total LDL Cholesterol 70 HDL Cholesterol 27 L Lipase TSH Urine Color Urine Appearance Urine pH Ur Specific [place] Urine Protein Urine Glucose (UA) Urine Ketones Urine Blood Urine Nitrite Urine Bilirubin Urine Urobilinogen Ur Leukocyte Esterase Urine WBC (Auto) Urine RBC (Auto) Ur Epithelial Cells Urine Bacteria Urine Mucus Blood Type Antibody Screen Active Medications Generic Name Dose Route Start Last Admin Trade Name Freq PRN Reason Stop Dose Admin Acetaminophen 650 mg 07/08/18 20:44 07/08/18 22:00 Tylenol - PO 650 mg Q6H PRN Administration PAIN LEVEL 6-10 Atorvastatin Calcium 10 mg 07/08/18 22:00 07/08/18 22:00 Lipitor - PO 10 mg HS JING Administration Furosemide 80 mg 07/09/18 06:00 07/09/18 06:13 Lasix - PO 80 mg DAILY JING Administration Ceftriaxone Sodium 1 gm/ 50 mls @ 100 mls/hr 07/09/18 10:00 Dextrose IVPB DAILY JING Protocol Sodium Chloride 1,000 mls @ 50 mls/hr 07/08/18 22:15 07/08/18 22:58 Normal Saline - IV 07/09/18 22:10 50 mls/hr ASDIR JING Administration Insulin Aspart 1 vial 07/08/18 22:00 07/09/18 06:13 Novolog Vial Sliding Scale - SQ Not Given ACHS JING Protocol Metoprolol Tartrate 25 mg 07/08/18 18:00 07/09/18 09:15 Lopressor - PO 25 mg QID JING Administration Metoprolol Tartrate 5 mg 07/09/18 09:22 Lopressor Injection - IVPUSH 07/09/18 09:23 ONCE ONE Rivaroxaban 20 mg 07/08/18 18:00 07/08/18 18:10 Xarelto - PO 20 mg DAILY@1800 JING Administration ASSESSMENT/PLAN: Patient is a 68 year old female with a significant past medical history of CAD, asthma, hypercholesterolemia, insulin dependent diabetes, hypertension, recurrent urinary tract infections, nephrolithiasis s/p lithotripsy, osteoarthritis, obesity, and left great toe gangrene (s/p angiogram 2016). Patient presents to the ED with complaints of worsening fatigue, lower abdominal pain, diarrhea, nausea since returning from [place] 2 days ago. Patient was in [place] for about 1 month for the holidays. Patient sought medical attention in [place] and was diagnosed with a UTI. She was given antibiotics and continued them for 10 days but stopped them when they made her feel lightheaded. Patient continued to have generalized fatigue and nausea and still having lower abdominal pain. Patient reports a few episodes of loose stools but denies hematochezia. In the ED she was also noted to be in rapid afib in the 140s. ID: Rule out sepsis, blood and urine cultures pending Monitor labs, vitals Rule out c diff, was on antibiotics in [place], then developed diarrhea monitor blood and cultures results Card: New onset atrial fibrillation with RVR, started on xarelto Patient went into rapid afib with rvr again this am. metoprolol increased to 50mg qid. troponins negative x 2 Cardiology following : UTI, unresolved Failed outpatient therapy for UTI Still symptomatic, with +UA and UC pending sensitivities Patient still having suprapubic pain and discomfort. Will consult ID for further recommendations. Endocrine: Diabetes Start Novolog and monitor bgms. fen: dehydration, on gentle ivf monitor electrolytes diabetic diet prophy started on xarelto Visit type - Emergency Visit Emergency Visit: Yes ED Registration Date: 07/08/18 Care time: The patient presented to the Emergency Department on the above date and was hospitalized for further evaluation of their emergent condition. - New Patient This patient is new to me today: No - Critical Care Critical Care patient: No
[2018-07-09] MEDS ORDERED: CEFTRIAXONE 1 GM in DEXTROSE 5%-WATER - 50 ML IVPB SCH (10:00)
--- NOTE | 2018-07-09 10:11 | PN ---
Progress Note (short form) - Note Progress Note: Consult Consult Specialty:: cardio - History of Present Illness Chief Complaint: abd pain History of Present Illness: feels better today. no chest pain, palps, dizziness, lightheadedness, dyspnea Current Medications Acetaminophen (Tylenol -) 650 mg PO Q6H PRN PRN Reason: PAIN LEVEL 6-10 Last Admin: 07/08/18 22:00 Dose: 650 mg Atorvastatin Calcium (Lipitor -) 10 mg PO HS [facility] Last Admin: 07/08/18 22:00 Dose: 10 mg Furosemide (Lasix -) 80 mg PO DAILY [facility] Last Admin: 07/09/18 11:10 Dose: Not Given Ceftriaxone Sodium 1 gm/ (Dextrose) 50 mls @ 100 mls/hr IVPB DAILY [facility]; Protocol Last Admin: 07/09/18 11:25 Dose: 100 mls/hr Sodium Chloride (Normal Saline -) 1,000 mls @ 50 mls/hr IV ASDIR [facility] Stop: 07/09/18 22:10 Last Admin: 07/08/18 22:58 Dose: 50 mls/hr Insulin Aspart (Novolog Vial Sliding Scale -) 1 vial SQ ACHS [facility]; Protocol Last Admin: 07/09/18 06:13 Dose: Not Given Metoprolol Tartrate (Lopressor -) 25 mg PO QID [facility] Last Admin: 07/09/18 09:15 Dose: 25 mg Rivaroxaban (Xarelto -) 20 mg PO DAILY@1800 JING Last Admin: 07/08/18 18:10 Dose: 20 mg Vital Signs: Vital Signs Period Temp Pulse Resp BP Sys/Krishnan Pulse Ox Last 24 Hr 98 F-98.8 F 93-136 18-20 103-150/41-78 98-100 Constitutional: Yes: Well Nourished, No Distress Eyes: No: Sclera Icterus HENT: No: Nasal Congestion Neck: No: Decreased ROM Respiratory: Yes: CTA Bilaterally. No: Accessory Muscle Use, Rales, Wheezes Gastrointestinal: Yes: Normal Bowel Sounds. No: Distention, Hepatomegaly, Palpable Mass, Tenderness Cardiovascular: Yes: Pulse Irregular JVD: Yes Carotid Bruit: No PMI: Non-Displaced Heart Sounds: Yes: S1, S2. No: Gallop Murmur: No: Systolic Murmur, Diastolic Murmur Musculoskeletal: Yes: Other (No kyphosis) Extremities: No: Cool, Cyanosis Edema: No Peripheral Pulses: 2+ Left Carotid, 2+ Right Carotid, 2+ Left Doralis Pedis, 2+ Right Dorsalis Pedis Integumentary: No: Jaundice Neurological: Yes: Alert, Oriented (x3) Psychiatric: No: Agitated Assessment/Plan L/RHC 2016: wedge 18 (down to 12 after nitro); PA 40/20 (down to 25/15 after nitro); RA 10; nl EF; mild diffuse CAD (nonobstructive) Echo 07/18: 1. This was a technically difficult study with suboptimal views. 2. The left ventricle is mildly dilated. 3. Overall left ventricular systolic function appears mildly impaired with a visually estimated EF between 45 - 50 %.Small's EF calculation is 46%.Global hypokinesis present. 4. LA pressure is probably elevated. 5. The right ventricle is normal in size and function. 6. Left atrium is moderately dilated by volume. 7. Patent foramen ovale cannot be excluded, as there is a question of flow across the interatrial septum in some views. 8. Mild mitral regurgitation is present. 9. Unable to estimate RVSP due to inadequate TR jet spectral doppler profile. 10. Aortic arch is normal in size; laminar atherosclerotic plaque present. tele: afib 130s-140s Afib: -new AF here, with rapid HR--improved with diltiazem in ER -will change to standing po metoprolol given pt with incipient systolic CHF-- metopr tartrate 25 QID started - increase to 50 mg QID for improved HR control -CHADS VASC = 5. benefits of AC for stroke prevention are >> risks here. d/w'd dr campbell (ER)--no invasive procedures anticipated, no suspicion for obstructing kidney stone. d/w'd pharmacy--est'd creat clearance is > 50. contxarelto 20 qd ( qd dosing to maximize compliance). -stop plavix (on this for PAD sec prevention--NOAC is sufficient). 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 did not f/u with us ( including for BMP monitoring) since then -1/18 with echo showing new (mild) global LV syst dysfunction, likely due to chronically uncontrolled DM or ABE (not treated)--pt referred for tx of both with specialists -home meds: lisinopril 20 qd, lasix 80 qd - currently denies sob but neck veins up--likely related to rapid AF in predisposed HF pt. - received 1 L IVF in ER to pre-hydrate for CT abd/pelvis with IV contrast. d/w' d dr campbell in ER--no more IVF, lasix held initially - cont lasix 80 mg PO daily, home dose HTN: -soft BP at times, ? due to infection (UTI) -BB (for afib)--observe BP, hold home FRANDY for now HPL: -cont home atorva 10 DM: -on insulin, poor control historically -per hospitalist UTI: -per hospitalist
[2018-07-09] MEDS ORDERED: METOPROLOL TARTRATE 5 MG/5 ML VIAL IVPUSH PRN (11:28)
[2018-07-09] MEDS ORDERED: CITALOPRAM HYDROBROMIDE 10 MG TABLET (FP) PO ONE (12:30)
--- NOTE | 2018-07-09 15:14 | ECHO ---
Name: HIENMARIA L DAMICO Exam:Adult Echocardiogram Study Date: 07/09/2018 10:21 AM Age: 68 yrs Reason For Study: ATRIAL FIBRILLATION Height: 62 in Weight: 230 lb BSA: 2.0 m2 MMode/2D Measurements & Calculations IVSd: 0.98 cm Ao root diam: 2.9 cm LVIDd: 4.8 cm LA dimension: 4.6 cm LVIDs: 3.8 cm LVPWd: 0.87 cm EDV(Teich): 109.7 ml LAV (MOD-bp): 84.0 ml ESV(Teich): 62.2 ml TAPSE: 2.8 cm Doppler Measurements & Calculations MV E max eamon: 121.9 cm/sec Ao V2 max: 172.0 cm/sec MV A max eamon: 65.6 cm/sec Ao max P.8 mmHg MV E/A: 1.9 MV dec time: 0.18 sec LV V1 max P.7 mmHg MR max eamon: 463.0 cm/sec LV V1 max: 82.5 cm/sec MR max P.1 mmHg TR max eamon: 241.5 cm/sec Med Peak E' Eamon: 7.6 cm/sec TR max P.5 mmHg Med E/e': 16.0 Lat Peak E' Eamon: 5.8 cm/sec Lat E/e': 21.1 Procedure A two-dimensional transthoracic echocardiogram with color flow and Doppler was performed. The study w as technically difficult with many images being suboptimal in quality. Left Ventricle The left ventricle is grossly normal size. Left ventricular systolic function is moderate to severely reduced. There is moderate to severe global hypokinesis of the left ventricle. Right Ventricle The right ventricle is not well visualized. Atria The left atrium is mildly dilated. The right atrium is mildly dilated. Mitral Valve There is mild mitral valve thickening. There is no mitral valve stenosis. There is moderate to severe mitral regurgitation. Tricuspid Valve There is mild tricuspid valve thickening. There is no tricuspid stenosis. There is moderate to severe tricuspid regurgitation. Right ventricular systolic pressure is normal. Aortic Valve The aortic valve is trileaflet. There is mild aortic valve thickening. There is mild aortic sclerosis .;. No hemodynamically significant valvular aortic stenosis. No aortic regurgitation is present. Pulmonic Valve The pulmonic valve is not well visualized. Great Vessels The aortic root is normal size. Pericardium/Pleura There is no pericardial effusion. Interpretation Summary The left atrium is mildly dilated. The right atrium is mildly dilated. Right ventricular systolic pressure is normal. There is mild aortic valve thickening. The left ventricle is grossly normal size. There is moderate to severe tricuspid regurgitation. Left ventricular systolic function is moderate to severely reduced. There is moderate to severe global hypokinesis of the left ventricle. There is moderate to severe mitral regurgitation. The study was technically difficult with many images being suboptimal in quality. MD Estuardo Hayward 07/09/2018 03:14 PM
[2018-07-09] MEDS: METOPROLOL TARTRATE 50 MG TABLET (FP) PO SCH ×3 (15:35→22:24)
[2018-07-09] MEDS ORDERED: PIPERACILLIN/TAZOBACTAM 3.375 GM VIAL IVPB ONE (17:21)
[2018-07-09] MEDS: PIPERACILLIN/TAZOB 3.375 GM 3.375 GM in DEXTROSE 5%-WATER - 50 ML IVPB SCH ×2 (18:22)
[2018-07-09] MEDS: RIVAROXABAN 20 MG TABLET PO SCH (18:22)
[2018-07-09] MEDS: ATORVASTATIN CA 10 MG TABLET (FP) PO SCH (22:24)
[2018-07-09] MEDS ORDERED: ONDANSETRON 4 MG/2 ML VIAL IVPUSH ONE (23:45)
[2018-07-10] MEDS ORDERED: PIPERACILLIN/TAZOBACTAM 3.375 GM VIAL IVPB ONE ×2 (01:19→18:45)
[2018-07-10] MEDS ORDERED: DEXTROSE 5%-WATER - 50 ML IVPB ONE ×2 (01:20→18:45)
[2018-07-10] MEDS: PIPERACILLIN/TAZOB 3.375 GM 3.375 GM in DEXTROSE 5%-WATER - 50 ML IVPB SCH ×3 (01:52→18:56)
[2018-07-10] MEDS: INSULIN SLIDING SCALE (NOVOLOG) 1 VIAL SQ SCH ×4 (06:21→21:48)
[2018-07-10 08:59] LABS: BASO % 0.6 % (0-2.0); EOS % 5.6 % (0-4.5); HEMATOCRIT 31.3 % (32.4-45.2); HEMOGLOBIN 10.6 GM/dL (10.7-15.3); LYMPH % 18.1 % (8-40); MCH 28.8 pg (25.7-33.7); MCHC 33.7 g/dl (32.0-36.0); MEAN CELL VOLUME 85.4 fl (80-96); MEAN PLT VOLUME 9.6 fl (7.5-11.1); MONO % 7.1 % (3.8-10.2); NEUT % 68.6 % (42.8-82.8); PLATELET COUNT 296 K/MM3 (134-434); RBC 3.67 M/mm3 (3.60-5.2); RDW 15.8 % (11.6-15.6); WHITE BLOOD COUNT 11.7 K/mm3 (4.0-10.0)
[2018-07-10 09:29] LABS: ALBUMIN 2.6 g/dl (3.4-5.0); ALK PHOS 102 U/L (45-117); ANION GAP 4 MMOL/L (8-16); BILIRUBIN,TOTAL 0.4 mg/dL (0.2-1); BLOOD UREA NITROGEN 23 mg/dL (7-18); CALCIUM 8.5 mg/dL (8.5-10.1); CHLORIDE 107 mmol/L (98-107); CO2 28 mmol/L (21-32); CREATININE 1.1 mg/dL (0.55-1.3); GLUCOSE,RANDOM 178 mg/dL (74-106); POTASSIUM 4.3 mmol/L (3.5-5.1); SGOT/AST 11 U/L (15-37); SGPT/ALT 15 U/L (13-61); SODIUM 139 mmol/L (136-145); TOT PROT 5.9 g/dl (6.4-8.2)
--- NOTE | 2018-07-10 11:56 | PN ---
Progress Note (short form) - Note Progress Note: [facility] *LIVE* Progress Note (short form) Patient Name: MARIA L STANFORD Date of : 1950 Patient Status: Inpatient Attending Provider: Mookie Aguilar Date: 07/09/18 10:07 Initialization Date: 07/09/18 10:07 Progress Note (short form) - Note Progress Note: Consult Consult Specialty:: cardio - History of Present Illness Chief Complaint: abd pain History of Present Illness: feels better today. no chest pain, palps, dizziness, lightheadedness, dyspnea Current Medications Acetaminophen (Tylenol -) 650 mg PO Q6H PRN PRN Reason: PAIN LEVEL 6-10 Last Admin: 07/08/18 22:00 Dose: 650 mg Atorvastatin Calcium (Lipitor -) 10 mg PO HS [facility] Last Admin: 07/08/18 22:00 Dose: 10 mg Furosemide (Lasix -) 80 mg PO DAILY [facility] Last Admin: 07/09/18 11:10 Dose: Not Given Ceftriaxone Sodium 1 gm/ (Dextrose) 50 mls @ 100 mls/hr IVPB DAILY [facility]; Protocol Last Admin: 07/09/18 11:25 Dose: 100 mls/hr Sodium Chloride (Normal Saline -) 1,000 mls @ 50 mls/hr IV ASDIR [facility] Stop: 07/09/18 22:10 Last Admin: 07/08/18 22:58 Dose: 50 mls/hr Insulin Aspart (Novolog Vial Sliding Scale -) 1 vial SQ ACHS [facility]; Protocol Last Admin: 07/09/18 06:13 Dose: Not Given Metoprolol Tartrate (Lopressor -) 25 mg PO QID [facility] Last Admin: 07/09/18 09:15 Dose: 25 mg Rivaroxaban (Xarelto -) 20 mg PO DAILY@1800 [facility] Last Admin: 07/08/18 18:10 Dose: 20 mg Vital Signs: Vital Signs Period Temp Pulse Resp BP Sys/Krishnan Pulse Ox Last 24 Hr 98 F-98.8 F 93-136 18-20 103-150/41-78 98-100 Constitutional: Yes: Well Nourished, No Distress Eyes: No: Sclera Icterus HENT: No: Nasal Congestion Neck: No: Decreased ROM Respiratory: Yes: CTA Bilaterally. No: Accessory Muscle Use, Rales, Wheezes Gastrointestinal: Yes: Normal Bowel Sounds. No: Distention, Hepatomegaly, Palpable Mass, Tenderness Cardiovascular: Yes: Pulse Irregular JVD: Yes Carotid Bruit: No PMI: Non-Displaced Heart Sounds: Yes: S1, S2. No: Gallop Murmur: No: Systolic Murmur, Diastolic Murmur Musculoskeletal: Yes: Other (No kyphosis) Extremities: No: Cool, Cyanosis Edema: No Peripheral Pulses: 2+ Left Carotid, 2+ Right Carotid, 2+ Left Doralis Pedis, 2+ Right Dorsalis Pedis Integumentary: No: Jaundice Neurological: Yes: Alert, Oriented (x3) Psychiatric: No: Agitated Assessment/Plan L/RHC 2016: wedge 18 (down to 12 after nitro); PA 40/20 (down to 25/15 after nitro); RA 10; nl EF; mild diffuse CAD (nonobstructive) Echo 07/18: 1. This was a technically difficult study with suboptimal views. 2. The left ventricle is mildly dilated. 3. Overall left ventricular systolic function appears mildly impaired with a visually estimated EF between 45 - 50 %.Small's EF calculation is 46%.Global hypokinesis present. 4. LA pressure is probably elevated. 5. The right ventricle is normal in size and function. 6. Left atrium is moderately dilated by volume. 7. Patent foramen ovale cannot be excluded, as there is a question of flow across the interatrial septum in some views. 8. Mild mitral regurgitation is present. 9. Unable to estimate RVSP due to inadequate TR jet spectral doppler profile. 10. Aortic arch is normal in size; laminar atherosclerotic plaque present. tele: afib, rate ok echo 07/2018: mod-sev dec lvef, berry, mod-sev tr/mr, nl rvsp Afib: -new AF here, with rapid HR--improved with diltiazem in ER -rate ok, will change to toprol 50 bid for afib and syst chf -CHADS VASC = 5. benefits of AC for stroke prevention are >> risks here. d/w'd pharmacy--est'd creat clearance is > 50. cont xarelto 20 qd (qd dosing to maximize compliance). -stop plavix (on this for PAD sec prevention--NOAC is sufficient). 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 did not f/u with us ( including for BMP monitoring) since then -07/18 with echo showing new (mild) global LV syst dysfunction, likely due to chronically uncontrolled DM or ABE (not treated)--pt referred for tx of both with specialists -home meds: lisinopril 20 qd, lasix 80 qd -vol stable, cont lasix 80 mg PO daily, home dose -echo here reviewed, it was tds and also pt in afib with rvr at time of study, lvef appears mod reduced and there is mod mr/tr. Would repeat echo as outpt when HR better controlled. HTN: -stable HPL: -cont home atorva 10 DM: -on insulin, poor control historically -per hospitalist UTI: -per hospitalist given that still adjusting bb, would monitor on tele for now. if pt is being discharged today would wait until late afternoon to monitor hr on tele with new amada added this AM.
[2018-07-10] MEDS: FUROSEMIDE 40 MG TABLET (FP) PO SCH (12:28)
[2018-07-10] MEDS: CITALOPRAM HYDROBROMIDE 10 MG TABLET (FP) PO SCH (12:28)
--- NOTE | 2018-07-10 12:45 | EKG ---
Test Reason : Blood Pressure : / mmHG Vent. Rate : 108 BPM Atrial Rate : 104 BPM P-R Int : 000 ms QRS Dur : 088 ms QT Int : 330 ms P-R-T Axes : 000 -07 222 degrees QTc Int : 442 ms ATRIAL FIBRILLATION WITH RAPID VENTRICULAR RESPONSE MINIMAL VOLTAGE CRITERIA FOR LVH, MAY BE NORMAL VARIANT NONSPECIFIC T WAVE ABNORMALITY ABNORMAL ECG WHEN COMPARED WITH ECG OF 08-JUL-2018 09:22, NO SIGNIFICANT CHANGE WAS FOUND Confirmed by MELISSA OSBORNE, WAYLON ([id number]) on 07/10/2018 12:44:51 PM Referred By: Confirmed By:WAYLON TORRES MD
--- NOTE | 2018-07-10 15:53 | DS ---
Physical Exam: SUBJECTIVE: Patient seen and examined OBJECTIVE: Vital Signs Period Temp Pulse Resp BP Sys/Krishnan Pulse Ox Last 24 Hr 97.9 F-98.3 F 84-114 18-20 101-138/59-79 98-99 PHYSICAL EXAM GENERAL: The patient is awake, alert, and fully oriented, in no acute distress. HEAD: Normal with no signs of trauma. EYES: PERRL, extraocular movements intact, sclera anicteric, conjunctiva clear. ENT: Ears normal, nares patent, oropharynx clear without exudates, moist mucous membranes. NECK: Trachea midline, full range of motion, supple. LUNGS: Breath sounds equal, clear to auscultation bilaterally, no wheezes, no crackles, no accessory muscle use. HEART: Regular rate and rhythm, S1, S2 without murmur, rub or gallop. ABDOMEN: Soft, nontender, nondistended, normoactive bowel sounds, no guarding, no rebound, no hepatosplenomegaly, no masses. EXTREMITIES: 2+ pulses, warm, well-perfused, no edema. NEUROLOGICAL: Cranial nerves II through XII grossly intact. Normal speech, gait not observed. PSYCH: Normal mood, normal affect. SKIN: Warm, dry, normal turgor, no rashes or lesions noted. LABS Laboratory Results - last 24 hr 07/09/18 07/09/18 07/09/18 17:56 21:26 23:30 WBC RBC Hgb Hct MCV MCH MCHC RDW Plt Count MPV Absolute Neuts (auto) Neutrophils % Lymphocytes % Monocytes % Eosinophils % Basophils % Nucleated RBC % Sodium Potassium Chloride Carbon Dioxide Anion Gap BUN Creatinine Creat Clearance w eGFR POC Glucometer 411 210 Random Glucose Calcium Total Bilirubin AST ALT Alkaline Phosphatase Troponin I < 0.02 Total Protein Albumin 07/10/18 07/10/18 07/10/18 06:19 08:30 08:30 WBC 11.7 H RBC 3.67 Hgb 10.6 L Hct 31.3 L MCV 85.4 MCH 28.8 MCHC 33.7 RDW 15.8 H Plt Count 296 MPV 9.6 Absolute Neuts (auto) 8.1 H Neutrophils % 68.6 Lymphocytes % 18.1 D Monocytes % 7.1 Eosinophils % 5.6 H Basophils % 0.6 Nucleated RBC % 0 Sodium 139 Potassium 4.3 Chloride 107 Carbon Dioxide 28 Anion Gap 4 L BUN 23 H Creatinine 1.1 Creat Clearance w eGFR 49.39 POC Glucometer 146 Random Glucose 178 H Calcium 8.5 Total Bilirubin 0.4 AST 11 L ALT 15 Alkaline Phosphatase 102 Troponin I Total Protein 5.9 L Albumin 2.6 L 07/10/18 12:53 WBC RBC Hgb Hct MCV MCH MCHC RDW Plt Count MPV Absolute Neuts (auto) Neutrophils % Lymphocytes % Monocytes % Eosinophils % Basophils % Nucleated RBC % Sodium Potassium Chloride Carbon Dioxide Anion Gap BUN Creatinine Creat Clearance w eGFR POC Glucometer 216 Random Glucose Calcium Total Bilirubin AST ALT Alkaline Phosphatase Troponin I Total Protein Albumin HOSPITAL COURSE: Date of Admission:07/08/18 Date of Discharge: 07/10/18 Discharge Summary Reason For Visit: RAPID ATRIAL FIBRILLATION Current Active Problems Abdominal pain (Acute) Atrial fibrillation with RVR (Acute) Leukocytosis (Acute) Urinary tract infection (Acute) Condition: Guarded - Instructions Referrals: Celestine Lang MD [Primary Care Provider] - - Home Medications Comprehensive Discharge Medication List: Ambulatory Orders Atorvastatin Ca [Lipitor] 10 mg PO DAILY 08/04/13 Citalopram Hydrobromide [Celexa -] 20 mg PO DAILY 08/04/13 Insulin Detemir [Levemir Flexpen] 60 unit SQ BID 08/04/13 hydrOXYzine HCL [Atarax -] 25 mg PO DAILY 08/04/13 metFORMIN HCL [Glucophage] 1,000 mg PO DAILY 08/04/13 Aspirin [ASA -] 81 mg PO DAILY #0 02/14/15 Furosemide [Lasix -] 40 mg PO DAILY 02/14/15 Insulin (Levemir) [Levemir Flexpen -] 4 units SQ DAILY 02/14/15 Insulin Aspart [Novolog Flexpen] 10 unit SQ AC 02/14/15 Glipizide 5 mg PO DAILY 05/01/16 Lisinopril [Zestril] 20 mg PO DAILY 05/01/16 Metoprolol Succinate [Toprol Xl -] 25 mg PO DAILY 05/01/16 Oxybutynin Chloride [Oxybutynin Chloride ER] 15 mg PO DAILY 05/01/16 Salmeterol/Fluticasone [Advair 100Mcg/50Mcg -] 1 inh PO BID 05/01/16 Clopidogrel Bisulfate [Plavix -] 75 mg PO DAILY #30 tablet 05/03/16 Collagenase Clostridium Hist. [Santyl] 1 applic TP DAILY #90 applic 06/04/16 Collagenase Clostridium Hist. [Santyl] 1 applic TP DAILY #90 oint...g. 09/21/16 Clopidogrel Bisulfate [Plavix -] 75 mg PO DAILY #120 tablet 12/27/16 Clopidogrel Bisulfate [Plavix] 75 mg PO DAILY #120 tablet 07/31/17
--- NOTE | 2018-07-10 17:11 | CON.ID ---
Consult Consult Specialty:: infectious diseases Reason for Consultation:: uti - History of Present Illness Chief Complaint: abd pain History of Present Illness: 68 year old female with a significant past medical history of CAD, asthma, hypercholesterolemia, insulin dependent diabetes, hypertension, recurrent urinary tract infections, nephrolithiasis s/p lithotripsy, osteoarthritis, obesity, and left great toe gangrene (s/p angiogram 2016). Patient presents to the ED today with complaints of worsening fatigue, lower abdominal pain, diarrhea, nausea since returning from [place] 2 days ago. Patient was in [place] for about 1 month for the holidays. Patient sought medical attention in [place] and was diagnosed with a UTI. She was given antibiotics and continued them for 10 days but stopped them when they made her feel lightheaded. Patient continued to have generalized fatigue and nausea and still having lower abdominal pain. - History Source History Provided By: Medical Record, Transfer Record Limitations to Obtaining History: Language Barrier - Past Medical History ...: No - Alcohol/Substance Use Hx Alcohol Use: No - Smoking History Smoking history: Never smoked Have you smoked in the past 12 months: No Aproximately how many cigarettes per day: 0 Home Medications - Allergies Allergies/Adverse Reactions: Allergies Allergy/AdvReac Type Severity Reaction Status Date / Time No Known Drug Allergies Allergy Verified 02/14/15 09:39 - Home Medications Home Medications: Ambulatory Orders Atorvastatin Ca [Lipitor] 10 mg PO DAILY 08/04/13 Citalopram Hydrobromide [Celexa -] 20 mg PO DAILY 08/04/13 Insulin Detemir [Levemir Flexpen] 60 unit SQ BID 08/04/13 hydrOXYzine HCL [Atarax -] 25 mg PO DAILY 08/04/13 metFORMIN HCL [Glucophage] 1,000 mg PO DAILY 08/04/13 Aspirin [ASA -] 81 mg PO DAILY #0 02/14/15 Furosemide [Lasix -] 40 mg PO DAILY 02/14/15 Insulin (Levemir) [Levemir Flexpen -] 4 units SQ DAILY 02/14/15 Insulin Aspart [Novolog Flexpen] 10 unit SQ AC 02/14/15 Glipizide 5 mg PO DAILY 05/01/16 Lisinopril [Zestril] 20 mg PO DAILY 05/01/16 Metoprolol Succinate [Toprol Xl -] 25 mg PO DAILY 05/01/16 Oxybutynin Chloride [Oxybutynin Chloride ER] 15 mg PO DAILY 05/01/16 Salmeterol/Fluticasone [Advair 100Mcg/50Mcg -] 1 inh PO BID 05/01/16 Clopidogrel Bisulfate [Plavix -] 75 mg PO DAILY #30 tablet 05/03/16 Collagenase Clostridium Hist. [Santyl] 1 applic TP DAILY #90 applic 06/04/16 Collagenase Clostridium Hist. [Santyl] 1 applic TP DAILY #90 oint...g. 09/21/16 Clopidogrel Bisulfate [Plavix -] 75 mg PO DAILY #120 tablet 12/27/16 Clopidogrel Bisulfate [Plavix] 75 mg PO DAILY #120 tablet 07/31/17 Review of Systems - Review of Systems Constitutional: reports: No Symptoms Eyes: reports: No Symptoms HENT: reports: No Symptoms Neck: reports: No Symptoms Cardiovascular: reports: No Symptoms Respiratory: reports: No Symptoms Gastrointestinal: reports: Abdominal Pain Genitourinary: reports: No Symptoms Musculoskeletal: reports: No Symptoms Integumentary: reports: No Symptoms Neurological: reports: No Symptoms Endocrine: reports: No Symptoms Hematology/Lymphatic: reports: No Symptoms Psychiatric: reports: No Symptoms Physical Exam Vital Signs: Vital Signs Temperature 98.3 F 07/10/18 15:06 Pulse Rate 94 H 07/10/18 15:06 Respiratory Rate 18 07/10/18 15:06 Blood Pressure 115/66 07/10/18 15:06 O2 Sat by Pulse Oximetry (%) 99 07/09/18 23:30 Constitutional: Yes: Well Nourished, Mild Distress, Obese Neck: Yes: Supple, Trachea Midline Cardiovascular: Yes: Regular Rate and Rhythm Respiratory: Yes: Regular, CTA Bilaterally Gastrointestinal: Yes: Normal Bowel Sounds, Soft Musculoskeletal: Yes: WNL Extremities: Yes: Other Neurological: Yes: Alert, Oriented Psychiatric: Yes: Alert, Oriented Labs: CBC, BMP 07/10/18 08:30 07/10/18 08:30 Imaging - Results Cat Scan: Report Reviewed, Image Reviewed Assessment/Plan 68 year old female with a significant past medical history of CAD, asthma, hypercholesterolemia, insulin dependent diabetes, hypertension, recurrent urinary tract infections, nephrolithiasis s/p lithotripsy, osteoarthritis, obesity, and left great toe gangrene (s/p angiogram 2016). Patient presents to the ED today with complaints of worsening fatigue, lower abdominal pain, diarrhea, nausea since returning from [place] 2 days ago. Patient was in [place] for about 1 month for the holidays. Patient sought medical attention in [place] and was diagnosed with a UTI. She was given antibiotics and continued them for 10 days but stopped them when they made her feel lightheaded. sepsis afib uti complicated abd pain plan will await for identification of the organisms and sensitivities we will continue zosyn once we have sensitivities then will decide further mgmt rest as per the team
--- NOTE | 2018-07-10 17:14 | PN ---
Progress Note, Physician - Current Medication List Current Medications: Active Medications Acetaminophen (Tylenol -) 650 mg PO Q6H PRN PRN Reason: PAIN LEVEL 6-10 Last Admin: 07/08/18 22:00 Dose: 650 mg Atorvastatin Calcium (Lipitor -) 10 mg PO HS [facility] Last Admin: 07/09/18 22:24 Dose: 10 mg Citalopram Hydrobromide (Celexa -) 10 mg PO DAILY [facility] Last Admin: 07/10/18 12:28 Dose: 10 mg Furosemide (Lasix -) 80 mg PO DAILY [facility] Last Admin: 07/10/18 12:28 Dose: 80 mg Piperacillin Sod/Tazobactam (Sod 3.375 gm/ Dextrose) 50 mls @ 100 mls/hr IVPB Q8H-IV [facility]; Protocol Last Admin: 07/10/18 01:52 Dose: 100 mls/hr Insulin Aspart (Novolog Vial Sliding Scale -) 1 vial SQ ACHS [facility]; Protocol Last Admin: 07/10/18 12:55 Dose: Not Given Metoprolol Succinate (Toprol Xl -) 50 mg PO BID [facility] Last Admin: 07/10/18 12:28 Dose: 50 mg Metoprolol Tartrate (Lopressor Injection -) 5 mg IVPUSH Q4H PRN PRN Reason: TACHYCARDIA Rivaroxaban (Xarelto -) 20 mg PO DAILY@1800 [facility] Last Admin: 07/09/18 18:22 Dose: 20 mg - Objective Vital Signs: Vital Signs Temperature 98.3 F 07/10/18 15:06 Pulse Rate 94 H 07/10/18 15:06 Respiratory Rate 18 07/10/18 15:06 Blood Pressure 115/66 07/10/18 15:06 O2 Sat by Pulse Oximetry (%) 99 07/09/18 23:30 Labs: CBC, BMP 07/10/18 08:30 07/10/18 08:30 INR, PTT INR 1.03 (0.83-1.09) 07/08/18 10:06
--- NOTE | 2018-07-10 17:22 | PN ---
Physical Exam: SUBJECTIVE: Patient seen and examined at the bedside. OBJECTIVE: cardiac rehab nurse shows uncontrolled afib. this afternoon, will defer discharge until tomorrow. lopressor 5mg iv push Vital Signs Period Temp Pulse Resp BP Sys/Krishnan Pulse Ox Last 24 Hr 98 F-98.3 F 82-110 18-22 107-138/59-82 98-99 GENERAL: The patient is awake, alert, and fully oriented, in no acute distress. HEAD: Normal with no signs of trauma. EYES: PERRL, extraocular movements intact, sclera anicteric, conjunctiva clear. No ptosis. ENT: Ears normal, nares patent, oropharynx clear without exudates, moist mucous membranes. NECK: Trachea midline, full range of motion, supple. LUNGS: Breath sounds equal, clear to auscultation bilaterally, no wheezes, no crackles, no accessory muscle use. HEART: patient is asymptomatic, denies chest pain, does not feel her heart racing ABDOMEN: Soft, nontender, nondistended, normoactive bowel sounds, no guarding, no rebound, no hepatosplenomegaly, no masses. EXTREMITIES: no edema. left great toe scarring s/o great toe gangrene, was santyl NEUROLOGICAL: Normal speech, gait not observed. PSYCH: Normal mood, normal affect. SKIN: Warm, dry, normal turgor, no rashes or lesions noted Laboratory Results - last 24 hr 07/09/18 07/09/18 07/09/18 17:56 21:26 23:30 WBC RBC Hgb Hct MCV MCH MCHC RDW Plt Count MPV Absolute Neuts (auto) Neutrophils % Lymphocytes % Monocytes % Eosinophils % Basophils % Nucleated RBC % Sodium Potassium Chloride Carbon Dioxide Anion Gap BUN Creatinine Creat Clearance w eGFR POC Glucometer 411 210 Random Glucose Calcium Total Bilirubin AST ALT Alkaline Phosphatase Troponin I < 0.02 Total Protein Albumin 07/10/18 07/10/18 07/10/18 06:19 08:30 08:30 WBC 11.7 H RBC 3.67 Hgb 10.6 L Hct 31.3 L MCV 85.4 MCH 28.8 MCHC 33.7 RDW 15.8 H Plt Count 296 MPV 9.6 Absolute Neuts (auto) 8.1 H Neutrophils % 68.6 Lymphocytes % 18.1 D Monocytes % 7.1 Eosinophils % 5.6 H Basophils % 0.6 Nucleated RBC % 0 Sodium 139 Potassium 4.3 Chloride 107 Carbon Dioxide 28 Anion Gap 4 L BUN 23 H Creatinine 1.1 Creat Clearance w eGFR 49.39 POC Glucometer 146 Random Glucose 178 H Calcium 8.5 Total Bilirubin 0.4 AST 11 L ALT 15 Alkaline Phosphatase 102 Troponin I Total Protein 5.9 L Albumin 2.6 L 07/10/18 12:53 WBC RBC Hgb Hct MCV MCH MCHC RDW Plt Count MPV Absolute Neuts (auto) Neutrophils % Lymphocytes % Monocytes % Eosinophils % Basophils % Nucleated RBC % Sodium Potassium Chloride Carbon Dioxide Anion Gap BUN Creatinine Creat Clearance w eGFR POC Glucometer 216 Random Glucose Calcium Total Bilirubin AST ALT Alkaline Phosphatase Troponin I Total Protein Albumin Active Medications Generic Name Dose Route Start Last Admin Trade Name Freq PRN Reason Stop Dose Admin Acetaminophen 650 mg 07/08/18 20:44 07/08/18 22:00 Tylenol - PO 650 mg Q6H PRN Administration PAIN LEVEL 6-10 Atorvastatin Calcium 10 mg 07/08/18 22:00 07/09/18 22:24 Lipitor - PO 10 mg HS JING Administration Citalopram Hydrobromide 10 mg 07/10/18 10:00 07/10/18 12:28 Celexa - PO 10 mg DAILY JING Administration Furosemide 80 mg 07/09/18 06:00 07/10/18 12:28 Lasix - PO 80 mg DAILY JING Administration Piperacillin Sod/Tazobactam 50 mls @ 100 mls/hr 07/09/18 13:30 07/10/18 01:52 Sod 3.375 gm/ Dextrose IVPB 100 mls/hr Q8H-IV JING Administration Protocol Insulin Aspart 1 vial 07/08/18 22:00 07/10/18 12:55 Novolog Vial Sliding Scale - SQ Not Given ACHS JING Protocol Metoprolol Succinate 50 mg 07/10/18 11:45 07/10/18 12:28 Toprol Xl - PO 50 mg BID JING Administration Metoprolol Tartrate 5 mg 07/09/18 11:28 Lopressor Injection - IVPUSH Q4H PRN TACHYCARDIA Rivaroxaban 20 mg 07/08/18 18:00 07/09/18 18:22 Xarelto - PO 20 mg DAILY@1800 JING Administration ASSESSMENT/PLAN: Patient is a 68 year old female with a significant past medical history of CAD, asthma, hypercholesterolemia, insulin dependent diabetes, hypertension, recurrent urinary tract infections, nephrolithiasis s/p lithotripsy, osteoarthritis, obesity, and left great toe gangrene (s/p angiogram 2016). Patient presents to the ED with complaints of worsening fatigue, lower abdominal pain, diarrhea, nausea since returning from [place] 2 days ago. Patient was in [place] for about 1 month for the holidays. Patient sought medical attention in [place] and was diagnosed with a UTI. She was given antibiotics and continued them for 10 days but stopped them when they made her feel lightheaded. Patient continued to have generalized fatigue and nausea and still having lower abdominal pain. Patient reports a few episodes of loose stools but denies hematochezia. In the ED she was also noted to be in rapid afib in the 140s. ID: Rule out sepsis blood cultures negative, urine cultures + ecoli On zosyn, per ID. Monitor labs, vitals Patient denies any diarrhea or loose stools Card: New onset atrial fibrillation with RVR, started on xarelto Patient went into rapid afib with rvr again this afternoon. now on metoprolol 50mg bid. troponins negative x 2 Cardiology following : UTI, unresolved Failed outpatient therapy for UTI Still symptomatic, UC with ecoli. Patient with mild suprapubic pain and discomfort. ID following. Endocrine: Diabetes Start Novolog and monitor bgms. fen: dehydration, on gentle ivf monitor electrolytes diabetic diet prophy started on xarelto Visit type - Emergency Visit Emergency Visit: Yes ED Registration Date: 07/08/18 Care time: The patient presented to the Emergency Department on the above date and was hospitalized for further evaluation of their emergent condition. - New Patient This patient is new to me today: No - Critical Care Critical Care patient: No - Discharge Referral Referred to [facility] No
[2018-07-10] MEDS: RIVAROXABAN 20 MG TABLET PO SCH (18:58)
[2018-07-10] MEDS: ATORVASTATIN CA 10 MG TABLET (FP) PO SCH (21:48)
[2018-07-11] MEDS ORDERED: PIPERACILLIN/TAZOBACTAM 3.375 GM VIAL IVPB ONE ×3 (01:31→17:08)
[2018-07-11] MEDS ORDERED: DEXTROSE 5%-WATER - 50 ML IVPB ONE ×3 (01:32→17:09)
[2018-07-11] MEDS: PIPERACILLIN/TAZOB 3.375 GM 3.375 GM in DEXTROSE 5%-WATER - 50 ML IVPB SCH ×3 (02:27→17:02)
[2018-07-11] MEDS: INSULIN SLIDING SCALE (NOVOLOG) 1 VIAL SQ SCH ×4 (06:40→22:23)
[2018-07-11 06:48] LABS: BASO % 0.9 % (0-2.0); HEMATOCRIT 34.2 % (32.4-45.2); HEMOGLOBIN 10.8 GM/dL (10.7-15.3); LYMPH % 22.5 % (8-40); MCH 27.2 pg (25.7-33.7); MCHC 31.5 g/dl (32.0-36.0); MEAN CELL VOLUME 86.1 fl (80-96); MEAN PLT VOLUME 9.7 fl (7.5-11.1); MONO % 7.3 % (3.8-10.2); NEUT % 63.3 % (42.8-82.8); PLATELET COUNT 338 K/MM3 (134-434); RBC 3.97 M/mm3 (3.60-5.2); RDW 15.8 % (11.6-15.6); WHITE BLOOD COUNT 13.3 K/mm3 (4.0-10.0)
[2018-07-11 07:22] LABS: ALK PHOS 119 U/L (45-117); ANION GAP 4 MMOL/L (8-16); BILIRUBIN,TOTAL 0.6 mg/dL (0.2-1); BLOOD UREA NITROGEN 32 mg/dL (7-18); CALCIUM 8.9 mg/dL (8.5-10.1); CHLORIDE 100 mmol/L (98-107); CO2 32 mmol/L (21-32); CREATININE 1.4 mg/dL (0.55-1.3); GLUCOSE,RANDOM 189 mg/dL (74-106); MAGNESIUM 2.3 mg/dL (1.8-2.4); POTASSIUM 4.6 mmol/L (3.5-5.1); SGOT/AST 12 U/L (15-37); SGPT/ALT 19 U/L (13-61); SODIUM 136 mmol/L (136-145); TOT PROT 6.9 g/dl (6.4-8.2)
[2018-07-11] MEDS: CITALOPRAM HYDROBROMIDE 10 MG TABLET (FP) PO SCH (11:40)
[2018-07-11] MEDS: FUROSEMIDE 40 MG TABLET (FP) PO SCH (11:40)
[2018-07-11] MEDS ORDERED: metoPROLOL SUCCINATE 25 MG TAB.SR.24H (FP) PO SCH (12:40)
--- NOTE | 2018-07-11 12:41 | PN ---
Progress Note (short form) - Note Progress Note: History of Present Illness: feels better today. no chest pain, palps, dizziness, lightheadedness, dyspnea Current Medications Generic Name Dose Route Start Last Admin Trade Name Ludin PRN Reason Stop Dose Admin Acetaminophen 650 mg 07/08/18 20:44 07/08/18 22:00 Tylenol - PO 650 mg Q6H PRN Administration PAIN LEVEL 6-10 Atorvastatin Calcium 10 mg 07/08/18 22:00 07/10/18 21:48 Lipitor - PO 10 mg HS JING Administration Citalopram Hydrobromide 10 mg 07/10/18 10:00 07/11/18 11:40 Celexa - PO 10 mg DAILY JING Administration Furosemide 80 mg 07/09/18 06:00 07/11/18 11:40 Lasix - PO 80 mg DAILY JING Administration Piperacillin Sod/Tazobactam 50 mls @ 100 mls/hr 07/09/18 13:30 07/11/18 11:41 Sod 3.375 gm/ Dextrose IVPB 100 mls/hr Q8H-IV JING Administration Protocol Insulin Aspart 1 vial 07/08/18 22:00 07/11/18 12:18 Novolog Vial Sliding Scale - SQ 4 units ACHS JING Administration Protocol Metoprolol Succinate 75 mg 07/11/18 12:40 Toprol Xl - PO BID JING Metoprolol Tartrate 5 mg 07/09/18 11:28 Lopressor Injection - IVPUSH Q4H PRN TACHYCARDIA Rivaroxaban 20 mg 07/08/18 18:00 07/10/18 18:58 Xarelto - PO 20 mg DAILY@1800 JING Administration Vital Signs Period Temp Pulse Resp BP Sys/Krishnan Pulse Ox Last 24 Hr 97.7 F-98.3 F 92-103 18-20 115-125/55-70 98 Constitutional: Yes: Well Nourished, No Distress Eyes: No: Sclera Icterus HENT: No: Nasal Congestion Neck: No: Decreased ROM Respiratory: Yes: CTA Bilaterally. No: Accessory Muscle Use, Rales, Wheezes Gastrointestinal: Yes: Normal Bowel Sounds. No: Distention, Hepatomegaly, Palpable Mass, Tenderness Cardiovascular: Yes: Pulse Irregular JVD: Yes Carotid Bruit: No PMI: Non-Displaced Heart Sounds: Yes: S1, S2. No: Gallop Murmur: No: Systolic Murmur, Diastolic Murmur Extremities: No: Cool, Cyanosis Edema: No Peripheral Pulses: 2+ Left Carotid, 2+ Right Carotid, 2+ Left Doralis Pedis, 2+ Right Dorsalis Pedis Integumentary: No: Jaundice Neurological: Yes: Alert, Oriented (x3) Psychiatric: No: Agitated Assessment/Plan L/RHC 2016: wedge 18 (down to 12 after nitro); PA 40/20 (down to 25/15 after nitro); RA 10; nl EF; mild diffuse CAD (nonobstructive) Echo 07/18: 1. This was a technically difficult study with suboptimal views. 2. The left ventricle is mildly dilated. 3. Overall left ventricular systolic function appears mildly impaired with a visually estimated EF between 45 - 50 %.Small's EF calculation is 46%.Global hypokinesis present. 4. LA pressure is probably elevated. 5. The right ventricle is normal in size and function. 6. Left atrium is moderately dilated by volume. 7. Patent foramen ovale cannot be excluded, as there is a question of flow across the interatrial septum in some views. 8. Mild mitral regurgitation is present. 9. Unable to estimate RVSP due to inadequate TR jet spectral doppler profile. 10. Aortic arch is normal in size; laminar atherosclerotic plaque present. tele: afib, rate mostly ok, occ rvr 120 echo 07/2018: mod-sev dec lvef, berry, mod-sev tr/mr, nl rvsp Afib: -new AF here, with rapid HR--improved with diltiazem in ER -rate mostly controlled, will increase toprol 50 bid to 75 bid -CHADS VASC = 5. benefits of AC for stroke prevention are >> risks here. d/w'd pharmacy--est'd creat clearance is > 50. cont xarelto 20 qd (qd dosing to maximize compliance). -stop plavix (on this for PAD sec prevention--NOAC is sufficient). 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 did not f/u with us ( including for BMP monitoring) since then -07/18 with echo showing new (mild) global LV syst dysfunction, likely due to chronically uncontrolled DM or ABE (not treated)--pt referred for tx of both with specialists -home meds: lisinopril 20 qd, lasix 80 qd -vol stable, cont lasix 80 mg PO daily, home dose -echo here reviewed, it was tds and also pt in afib with rvr at time of study, lvef appears mod reduced and there is mod mr/tr. Would repeat echo as outpt when HR better controlled. HTN: -stable HPL: -cont home atorva 10 DM: -on insulin, poor control historically -per hospitalist UTI: -per hospitalist
[2018-07-11] MEDS ORDERED: metoPROLOL SUCCINATE 25 MG TAB.SR.24H (FP) PO ONE (12:42)
[2018-07-11 14:30] VITALS: BMI 41.8
--- NOTE | 2018-07-11 15:02 | PN ---
Progress Note, Physician - Current Medication List Current Medications: Active Medications Acetaminophen (Tylenol -) 650 mg PO Q6H PRN PRN Reason: PAIN LEVEL 6-10 Last Admin: 07/08/18 22:00 Dose: 650 mg Atorvastatin Calcium (Lipitor -) 10 mg PO HS [facility] Last Admin: 07/10/18 21:48 Dose: 10 mg Citalopram Hydrobromide (Celexa -) 10 mg PO DAILY [facility] Last Admin: 07/11/18 11:40 Dose: 10 mg Furosemide (Lasix -) 80 mg PO DAILY [facility] Last Admin: 07/11/18 11:40 Dose: 80 mg Piperacillin Sod/Tazobactam (Sod 3.375 gm/ Dextrose) 50 mls @ 100 mls/hr IVPB Q8H-IV [facility]; Protocol Last Admin: 07/11/18 11:41 Dose: 100 mls/hr Insulin Aspart (Novolog Vial Sliding Scale -) 1 vial SQ ACHS [facility]; Protocol Last Admin: 07/11/18 12:18 Dose: 4 units Metoprolol Succinate (Toprol Xl -) 75 mg PO BID [facility] Metoprolol Tartrate (Lopressor Injection -) 5 mg IVPUSH Q4H PRN PRN Reason: TACHYCARDIA Rivaroxaban (Xarelto -) 20 mg PO DAILY@1800 [facility] Last Admin: 07/10/18 18:58 Dose: 20 mg - Objective Vital Signs: Vital Signs Temperature 98.1 F 07/11/18 06:45 Pulse Rate 94 H 07/11/18 10:00 Respiratory Rate 18 07/11/18 10:00 Blood Pressure 110/76 07/11/18 10:00 O2 Sat by Pulse Oximetry (%) 98 07/10/18 21:00 Labs: CBC, BMP 07/11/18 05:30 07/11/18 05:30 INR, PTT INR 1.03 (0.83-1.09) 07/08/18 10:06
[2018-07-11] MEDS: RIVAROXABAN 20 MG TABLET PO SCH (17:02)
--- NOTE | 2018-07-11 17:36 | PN ---
Physical Exam: SUBJECTIVE: Patient seen and examined at the bedside. OBJECTIVE: discharge home once afib more controlled Vital Signs Period Temp Pulse Resp BP Sys/Krishnan Pulse Ox Last 24 Hr 97.7 F-98.1 F 92-103 18-20 110-129/55-76 98 GENERAL: The patient is awake, alert, and fully oriented, in no acute distress. HEAD: Normal with no signs of trauma. EYES: PERRL, extraocular movements intact, sclera anicteric, conjunctiva clear. No ptosis. ENT: Ears normal, nares patent, oropharynx clear without exudates, moist mucous membranes. NECK: Trachea midline, full range of motion, supple. LUNGS: Breath sounds equal, clear to auscultation bilaterally, no wheezes, no crackles, no accessory muscle use. HEART: patient is asymptomatic, denies chest pain, does not feel her heart racing ABDOMEN: Soft, nontender, nondistended, normoactive bowel sounds, no guarding, no rebound, no hepatosplenomegaly, no masses. EXTREMITIES: no edema. left great toe scarring s/o great toe gangrene, was santyl NEUROLOGICAL: Normal speech, gait not observed. PSYCH: Normal mood, normal affect. SKIN: Warm, dry, normal turgor, no rashes or lesions noted Laboratory Results - last 24 hr 07/10/18 07/11/18 07/11/18 21:34 02:40 05:30 WBC 13.3 H RBC 3.97 Hgb 10.8 Hct 34.2 MCV 86.1 MCH 27.2 MCHC 31.5 L RDW 15.8 H Plt Count 338 MPV 9.7 Absolute Neuts (auto) 8.4 H Neutrophils % 63.3 Lymphocytes % 22.5 D Monocytes % 7.3 Eosinophils % 6.0 H Basophils % 0.9 Nucleated RBC % 0 Sodium Potassium Chloride Carbon Dioxide Anion Gap BUN Creatinine Creat Clearance w eGFR POC Glucometer 471 221 Random Glucose Calcium Magnesium Total Bilirubin AST ALT Alkaline Phosphatase Total Protein Albumin 07/11/18 07/11/18 07/11/18 05:30 06:33 11:35 WBC RBC Hgb Hct MCV MCH MCHC RDW Plt Count MPV Absolute Neuts (auto) Neutrophils % Lymphocytes % Monocytes % Eosinophils % Basophils % Nucleated RBC % Sodium 136 Potassium 4.6 Chloride 100 Carbon Dioxide 32 Anion Gap 4 L BUN 32 H Creatinine 1.4 H Creat Clearance w eGFR 37.39 POC Glucometer 230 240 Random Glucose 189 H Calcium 8.9 Magnesium 2.3 Total Bilirubin 0.6 AST 12 L ALT 19 Alkaline Phosphatase 119 H Total Protein 6.9 Albumin 3.0 L 07/11/18 16:55 WBC RBC Hgb Hct MCV MCH MCHC RDW Plt Count MPV Absolute Neuts (auto) Neutrophils % Lymphocytes % Monocytes % Eosinophils % Basophils % Nucleated RBC % Sodium Potassium Chloride Carbon Dioxide Anion Gap BUN Creatinine Creat Clearance w eGFR POC Glucometer 373 Random Glucose Calcium Magnesium Total Bilirubin AST ALT Alkaline Phosphatase Total Protein Albumin Active Medications Generic Name Dose Route Start Last Admin Trade Name Freq PRN Reason Stop Dose Admin Acetaminophen 650 mg 07/08/18 20:44 07/08/18 22:00 Tylenol - PO 650 mg Q6H PRN Administration PAIN LEVEL 6-10 Atorvastatin Calcium 10 mg 07/08/18 22:00 07/10/18 21:48 Lipitor - PO 10 mg HS JING Administration Citalopram Hydrobromide 10 mg 07/10/18 10:00 07/11/18 11:40 Celexa - PO 10 mg DAILY JING Administration Furosemide 80 mg 07/09/18 06:00 07/11/18 11:40 Lasix - PO 80 mg DAILY JING Administration Piperacillin Sod/Tazobactam 50 mls @ 100 mls/hr 07/09/18 13:30 07/11/18 17:02 Sod 3.375 gm/ Dextrose IVPB 100 mls/hr Q8H-IV JING Administration Protocol Insulin Aspart 1 vial 07/08/18 22:00 07/11/18 17:02 Novolog Vial Sliding Scale - SQ 10 units ACHS JING Administration Protocol Metoprolol Succinate 75 mg 07/11/18 12:40 Toprol Xl - PO BID JING Metoprolol Tartrate 5 mg 07/09/18 11:28 Lopressor Injection - IVPUSH Q4H PRN TACHYCARDIA Rivaroxaban 20 mg 07/08/18 18:00 07/11/18 17:02 Xarelto - PO 20 mg DAILY@1800 JING Administration ASSESSMENT/PLAN: Patient is a 68 year old female with a significant past medical history of CAD, asthma, hypercholesterolemia, insulin dependent diabetes, hypertension, recurrent urinary tract infections, nephrolithiasis s/p lithotripsy, osteoarthritis, obesity, and left great toe gangrene (s/p angiogram 2016). Patient presents to the ED with complaints of worsening fatigue, lower abdominal pain, diarrhea, nausea since returning from [place] 2 days ago. Patient was in [place] for about 1 month for the holidays. Patient sought medical attention in [place] and was diagnosed with a UTI. She was given antibiotics and continued them for 10 days but stopped them when they made her feel lightheaded. Patient continued to have generalized fatigue and nausea and still having lower abdominal pain. Patient reports a few episodes of loose stools but denies hematochezia. In the ED she was also noted to be in rapid afib in the 140s. ID: Rule out sepsis blood cultures negative, urine cultures + ecoli On zosyn, per ID. to be switched to oral antibiotics on d/c Monitor labs, vitals Patient denies any diarrhea or loose stools Card: New onset atrial fibrillation with RVR, started on xarelto Patient went into rapid afib with rvr again this afternoon. now on metoprolol 75 mg bid. troponins negative x 2 Cardiology following : UTI, unresolved Failed outpatient therapy for UTI Still symptomatic, UC with ecoli. Patient with mild suprapubic pain and discomfort. ID following. on zosyn day #3 Endocrine: Diabetes Start Novolog and monitor bgms. fen: dehydration, on gentle ivf monitor electrolytes diabetic diet prophy started on xarelto Visit type - Emergency Visit Emergency Visit: Yes ED Registration Date: 07/08/18 Care time: The patient presented to the Emergency Department on the above date and was hospitalized for further evaluation of their emergent condition. - New Patient This patient is new to me today: No - Critical Care Critical Care patient: No - Discharge Referral Referred to [facility].: No
[2018-07-11] MEDS: ATORVASTATIN CA 10 MG TABLET (FP) PO SCH (22:21)
[2018-07-12] MEDS ORDERED: PIPERACILLIN/TAZOBACTAM 3.375 GM VIAL IVPB ONE ×2 (00:44→09:09)
[2018-07-12] MEDS ORDERED: DEXTROSE 5%-WATER - 50 ML IVPB ONE ×2 (00:44→09:09)
[2018-07-12] MEDS: PIPERACILLIN/TAZOB 3.375 GM 3.375 GM in DEXTROSE 5%-WATER - 50 ML IVPB SCH ×2 (01:03→09:26)
[2018-07-12] MEDS: INSULIN SLIDING SCALE (NOVOLOG) 1 VIAL SQ SCH ×5 (06:57→23:03)
--- NOTE | 2018-07-12 08:57 | PN ---
Physical Exam: SUBJECTIVE: Patient seen and examined OBJECTIVE: still not rate controlled on the increased dose of metropolol 75mg bid, afib at 120-140s. will increase to metoprolol 100mg bid patient has spurts of afib with ambulation Vital Signs Period Temp Pulse Resp BP Sys/Krishnan Pulse Ox Last 24 Hr 97.3 F-98.4 F 82-145 18-20 93-129/59-76 98 GENERAL: The patient is awake, alert, and fully oriented, in no acute distress. HEAD: Normal with no signs of trauma. EYES: PERRL, extraocular movements intact, sclera anicteric, conjunctiva clear. No ptosis. ENT: Ears normal, nares patent, oropharynx clear without exudates, moist mucous membranes. NECK: Trachea midline, full range of motion, supple. LUNGS: Breath sounds equal, clear to auscultation bilaterally, no wheezes, no crackles, no accessory muscle use. HEART: patient is asymptomatic, denies chest pain, does not feel her heart racing ABDOMEN: Soft, nontender, nondistended, normoactive bowel sounds, no guarding, no rebound, no hepatosplenomegaly, no masses. EXTREMITIES: no edema. left great toe scarring s/o great toe gangrene, was santyl NEUROLOGICAL: Normal speech, gait not observed. PSYCH: Normal mood, normal affect. SKIN: Warm, dry, normal turgor, no rashes or lesions noted Laboratory Results - last 24 hr 07/11/18 07/11/18 07/11/18 11:35 16:55 22:20 POC Glucometer 240 373 313 07/12/18 06:52 POC Glucometer 293 Active Medications Generic Name Dose Route Start Last Admin Trade Name Freq PRN Reason Stop Dose Admin Acetaminophen 650 mg 07/08/18 20:44 07/08/18 22:00 Tylenol - PO 650 mg Q6H PRN Administration PAIN LEVEL 6-10 Atorvastatin Calcium 10 mg 07/08/18 22:00 07/11/18 22:21 Lipitor - PO 10 mg HS JING Administration Citalopram Hydrobromide 10 mg 07/10/18 10:00 07/11/18 11:40 Celexa - PO 10 mg DAILY JING Administration Furosemide 80 mg 07/09/18 06:00 07/11/18 11:40 Lasix - PO 80 mg DAILY JING Administration Piperacillin Sod/Tazobactam 50 mls @ 100 mls/hr 07/09/18 13:30 07/12/18 01:03 Sod 3.375 gm/ Dextrose IVPB 100 mls/hr Q8H-IV JING Administration Protocol Insulin Aspart 1 vial 07/11/18 21:41 07/12/18 06:57 Novolog Vial Sliding Scale - SQ 8 units ACHS JING Administration Protocol Metoprolol Succinate 75 mg 07/11/18 12:40 07/11/18 22:21 Toprol Xl - PO 75 mg BID JING Administration Metoprolol Tartrate 5 mg 07/09/18 11:28 Lopressor Injection - IVPUSH Q4H PRN TACHYCARDIA Rivaroxaban 20 mg 07/08/18 18:00 07/11/18 17:02 Xarelto - PO 20 mg DAILY@1800 JING Administration ASSESSMENT/PLAN: Patient is a 68 year old female with a significant past medical history of CAD, asthma, hypercholesterolemia, insulin dependent diabetes, hypertension, recurrent urinary tract infections, nephrolithiasis s/p lithotripsy, osteoarthritis, obesity, and left great toe gangrene (s/p angiogram 2016). Patient presents to the ED with complaints of worsening fatigue, lower abdominal pain, diarrhea, nausea since returning from [place] 2 days ago. Patient was in [place] for about 1 month for the holidays. Patient sought medical attention in [place] and was diagnosed with a UTI. She was given antibiotics and continued them for 10 days but stopped them when they made her feel lightheaded. Patient continued to have generalized fatigue and nausea and still having lower abdominal pain. Patient reports a few episodes of loose stools but denies hematochezia. In the ED she was also noted to be in rapid afib in the 140s. Patient needs to be more rate controlled before discharge. Her metoprolol has been increased to the maximum daily dosing. Cardiology aware and following. ID: Rule out sepsis, ruled out Card: New onset atrial fibrillation with RVR, started on xarelto, still uncontrolled bursts of afib with ambulation 120-140s on Metoprolol 100mg bid. cardiology aware and following. : UTI, treated with Zosyn, zosyn stopped. fen po adequate electrlytes wnl diabetic diet full code on xarelto Visit type - Emergency Visit Emergency Visit: Yes ED Registration Date: 07/08/18 Care time: The patient presented to the Emergency Department on the above date and was hospitalized for further evaluation of their emergent condition. - New Patient This patient is new to me today: No - Critical Care Critical Care patient: No - Discharge Referral Referred to [facility] No
[2018-07-12] MEDS: FUROSEMIDE 40 MG TABLET (FP) PO SCH (09:26)
[2018-07-12] MEDS: CITALOPRAM HYDROBROMIDE 10 MG TABLET (FP) PO SCH (09:26)
--- NOTE | 2018-07-12 10:34 | PN ---
Progress Note (short form) - Note Progress Note: History of Present Illness: no chest pain, palps, dizziness, lightheadedness, dyspnea Current Medications Generic Name Dose Route Start Last Admin Trade Name Ludin PRN Reason Stop Dose Admin Acetaminophen 650 mg 07/08/18 20:44 07/08/18 22:00 Tylenol - PO 650 mg Q6H PRN Administration PAIN LEVEL 6-10 Atorvastatin Calcium 10 mg 07/08/18 22:00 07/11/18 22:21 Lipitor - PO 10 mg HS JING Administration Citalopram Hydrobromide 10 mg 07/10/18 10:00 07/12/18 09:26 Celexa - PO 10 mg DAILY JING Administration Furosemide 80 mg 07/09/18 06:00 07/12/18 09:26 Lasix - PO 80 mg DAILY JING Administration Piperacillin Sod/Tazobactam 50 mls @ 100 mls/hr 07/09/18 13:30 07/12/18 09:26 Sod 3.375 gm/ Dextrose IVPB 100 mls/hr Q8H-IV JING Administration Protocol Insulin Aspart 1 vial 07/11/18 21:41 07/12/18 06:57 Novolog Vial Sliding Scale - SQ 8 units ACHS JING Administration Protocol Metoprolol Succinate 100 mg 07/12/18 10:00 07/12/18 09:26 Toprol Xl - PO 100 mg BID JING Administration Metoprolol Tartrate 5 mg 07/09/18 11:28 Lopressor Injection - IVPUSH Q4H PRN TACHYCARDIA Rivaroxaban 20 mg 07/08/18 18:00 07/11/18 17:02 Xarelto - PO 20 mg DAILY@1800 JING Administration CBC, BMP 07/11/18 05:30 07/11/18 05:30 Constitutional: Yes: Well Nourished, No Distress Eyes: No: Sclera Icterus HENT: No: Nasal Congestion Neck: No: Decreased ROM Respiratory: Yes: CTA Bilaterally. No: Accessory Muscle Use, Rales, Wheezes Gastrointestinal: Yes: Normal Bowel Sounds. No: Distention, Hepatomegaly, Palpable Mass, Tenderness Cardiovascular: Yes: Pulse Irregular JVD: Yes Carotid Bruit: No PMI: Non-Displaced Heart Sounds: Yes: S1, S2. No: Gallop Murmur: No: Systolic Murmur, Diastolic Murmur Extremities: No: Cool, Cyanosis Edema: No Peripheral Pulses: 2+ Left Carotid, 2+ Right Carotid, 2+ Left Doralis Pedis, 2+ Right Dorsalis Pedis Integumentary: No: Jaundice Neurological: Yes: Alert, Oriented (x3) Psychiatric: No: Agitated Assessment/Plan L/RHC 2016: wedge 18 (down to 12 after nitro); PA 40/20 (down to 25/15 after nitro); RA 10; nl EF; mild diffuse CAD (nonobstructive) Echo 07/18: 1. This was a technically difficult study with suboptimal views. 2. The left ventricle is mildly dilated. 3. Overall left ventricular systolic function appears mildly impaired with a visually estimated EF between 45 - 50 %.Small's EF calculation is 46%.Global hypokinesis present. 4. LA pressure is probably elevated. 5. The right ventricle is normal in size and function. 6. Left atrium is moderately dilated by volume. 7. Patent foramen ovale cannot be excluded, as there is a question of flow across the interatrial septum in some views. 8. Mild mitral regurgitation is present. 9. Unable to estimate RVSP due to inadequate TR jet spectral doppler profile. 10. Aortic arch is normal in size; laminar atherosclerotic plaque present. tele: afib, occ rvr echo 07/2018: mod-sev dec lvef, berry, mod-sev tr/mr, nl rvsp Afib: -new AF here, with rapid HR--improved with diltiazem in ER -rate still fast with walking, agree with increase to toprol 100 bid, monitor on tele. if HR controlled ok for dc later today from cardiac pov. If still with rvr would add digoxin next given her low bp limiting other agents -CHADS VASC = 5. benefits of AC for stroke prevention are >> risks here. d/w'd pharmacy--est'd creat clearance is > 50. cont xarelto 20 qd (qd dosing to maximize compliance). -stop plavix (on this for PAD sec prevention--NOAC is sufficient). 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 did not f/u with us ( including for BMP monitoring) since then -1/18 with echo showing new (mild) global LV syst dysfunction, likely due to chronically uncontrolled DM or ABE (not treated)--pt referred for tx of both with specialists -home meds: lisinopril 20 qd, lasix 80 qd -vol stable, cont lasix 80 mg PO daily, home dose -echo here reviewed, it was tds and also pt in afib with rvr at time of study, lvef appears mod reduced and there is mod mr/tr. Would repeat echo as outpt when HR better controlled. HTN: -stable HPL: -cont home atorva 10 DM: -on insulin, poor control historically -per hospitalist UTI: -per hospitalist
--- NOTE | 2018-07-12 14:48 | PN ---
Progress Note, Physician - Current Medication List Current Medications: Active Medications Acetaminophen (Tylenol -) 650 mg PO Q6H PRN PRN Reason: PAIN LEVEL 6-10 Last Admin: 07/08/18 22:00 Dose: 650 mg Atorvastatin Calcium (Lipitor -) 10 mg PO HS [facility] Last Admin: 07/11/18 22:21 Dose: 10 mg Citalopram Hydrobromide (Celexa -) 10 mg PO DAILY [facility] Last Admin: 07/12/18 09:26 Dose: 10 mg Furosemide (Lasix -) 80 mg PO DAILY [facility] Last Admin: 07/12/18 09:26 Dose: 80 mg Piperacillin Sod/Tazobactam (Sod 3.375 gm/ Dextrose) 50 mls @ 100 mls/hr IVPB Q8H-IV [facility]; Protocol Last Admin: 07/12/18 09:26 Dose: 100 mls/hr Insulin Aspart (Novolog Vial Sliding Scale -) 1 vial SQ ACHS [facility]; Protocol Last Admin: 07/12/18 11:15 Dose: 83 units Metoprolol Succinate (Toprol Xl -) 100 mg PO BID [facility] Last Admin: 07/12/18 09:26 Dose: 100 mg Metoprolol Tartrate (Lopressor Injection -) 5 mg IVPUSH Q4H PRN PRN Reason: TACHYCARDIA Rivaroxaban (Xarelto -) 20 mg PO DAILY@1800 [facility] Last Admin: 07/11/18 17:02 Dose: 20 mg - Objective Vital Signs: Vital Signs Temperature 98.4 F 07/12/18 10:00 Pulse Rate 125 H 07/12/18 10:00 Respiratory Rate 20 07/12/18 10:00 Blood Pressure 126/50 L 07/12/18 10:00 O2 Sat by Pulse Oximetry (%) 97 07/12/18 09:00 Labs: CBC, BMP 07/11/18 05:30 07/11/18 05:30 INR, PTT INR 1.03 (0.83-1.09) 07/08/18 10:06
[2018-07-12] MEDS: RIVAROXABAN 20 MG TABLET PO SCH (17:54)
[2018-07-12] MEDS ORDERED: INSULIN (NOVOLOG) ASPART 100 UNITS/ML 10ML VIAL ONE (21:49)
[2018-07-12] MEDS: ATORVASTATIN CA 10 MG TABLET (FP) PO SCH (23:02)
[2018-07-13] MEDS: INSULIN SLIDING SCALE (NOVOLOG) 1 VIAL SQ SCH ×2 (06:30→11:04)
[2018-07-13] MEDS: FUROSEMIDE 40 MG TABLET (FP) PO SCH (09:12)
[2018-07-13] MEDS: ACETAMINOPHEN 325 MG TABLET (FP) PO PRN (09:12)
[2018-07-13] MEDS: CITALOPRAM HYDROBROMIDE 10 MG TABLET (FP) PO SCH (09:12)
[2018-07-13 09:51] VITALS: BP 93/49; PULSE 102; TEMP 97.6
--- NOTE | 2018-07-13 10:55 | PN ---
Progress Note (short form) - Note Progress Note: s:no chest pain, palps, dizziness, lightheadedness, dyspnea Current Medications Generic Name Dose Route Start Last Admin Trade Name Freq PRN Reason Stop Dose Admin Acetaminophen 650 mg 07/08/18 20:44 07/13/18 09:12 Tylenol - PO 650 mg Q6H PRN Administration PAIN LEVEL 6-10 Atorvastatin Calcium 10 mg 07/08/18 22:00 07/12/18 23:02 Lipitor - PO 10 mg HS JING Administration Citalopram Hydrobromide 10 mg 07/10/18 10:00 07/13/18 09:12 Celexa - PO 10 mg DAILY JING Administration Furosemide 80 mg 07/09/18 06:00 07/13/18 09:12 Lasix - PO 80 mg DAILY JING Administration Insulin Aspart 1 vial 07/12/18 22:12 07/13/18 06:30 Novolog Vial Sliding Scale - SQ 8 units ACHS JING Administration Protocol Metoprolol Succinate 100 mg 07/12/18 10:00 07/13/18 09:12 Toprol Xl - PO 100 mg BID JING Administration Metoprolol Tartrate 5 mg 07/09/18 11:28 07/12/18 18:09 Lopressor Injection - IVPUSH 5 mg Q4H PRN Administration TACHYCARDIA Rivaroxaban 20 mg 07/08/18 18:00 07/12/18 17:54 Xarelto - PO 20 mg DAILY@1800 JING Administration Vital Signs Period Temp Pulse Resp BP Sys/Krishnan Pulse Ox Last 24 Hr 97.6 F-98.4 F 71-158 19-20 93-143/49-90 94-94 Constitutional: Yes: Well Nourished, No Distress Eyes: No: Sclera Icterus HENT: No: Nasal Congestion Neck: No: Decreased ROM Respiratory: Yes: CTA Bilaterally. No: Accessory Muscle Use, Rales, Wheezes Gastrointestinal: Yes: Normal Bowel Sounds. No: Distention, Hepatomegaly, Palpable Mass, Tenderness Cardiovascular: Yes: Pulse Irregular Heart Sounds: Yes: S1, S2. No: Gallop Murmur: No: Systolic Murmur, Diastolic Murmur Extremities: No: Cool, Cyanosis Edema: No Integumentary: No: Jaundice Neurological: Yes: Alert, Oriented (x3) Psychiatric: No: Agitated CBC, BMP 07/11/18 05:30 07/11/18 05:30 Assessment/Plan L/RHC 2016: wedge 18 (down to 12 after nitro); PA 40/20 (down to 25/15 after nitro); RA 10; nl EF; mild diffuse CAD (nonobstructive) Echo 07/18: 1. This was a technically difficult study with suboptimal views. 2. The left ventricle is mildly dilated. 3. Overall left ventricular systolic function appears mildly impaired with a visually estimated EF between 45 - 50 %.Small's EF calculation is 46%.Global hypokinesis present. 4. LA pressure is probably elevated. 5. The right ventricle is normal in size and function. 6. Left atrium is moderately dilated by volume. 7. Patent foramen ovale cannot be excluded, as there is a question of flow across the interatrial septum in some views. 8. Mild mitral regurgitation is present. 9. Unable to estimate RVSP due to inadequate TR jet spectral doppler profile. 10. Aortic arch is normal in size; laminar atherosclerotic plaque present. tele: afib,rate mostly controlled echo 07/2018: mod-sev dec lvef, berry, mod-sev tr/mr, nl rvsp Afib: -new AF here, with rapid HR -with toprol 100 bid HR seems improved. Continue same. -CHADS VASC = 5. benefits of AC for stroke prevention are >> risks here. d/w'd pharmacy--est'd creat clearance is > 50. cont xarelto 20 qd (qd dosing to maximize compliance). -stopped plavix (on this for PAD sec prevention--NOAC is sufficient). 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 did not f/u with us ( including for BMP monitoring) since then -07/18 with echo showing new (mild) global LV syst dysfunction, likely due to chronically uncontrolled DM or ABE (not treated)--pt referred for tx of both with specialists -home meds: lisinopril 20 qd, lasix 80 qd -vol stable, cont lasix 80 mg PO daily, home dose -echo here reviewed, it was tds and also pt in afib with rvr at time of study, lvef appears mod reduced and there is mod mr/tr. Would repeat echo as outpt when HR better controlled. HTN: -stable HPL: -cont home atorva 10 DM: -on insulin, poor control historically -per hospitalist UTI: -per hospitalist cardiac phillips ok for dc
--- NOTE | 2018-07-13 13:20 | PN ---
Progress Note, Physician - Current Medication List Current Medications: Active Medications Acetaminophen (Tylenol -) 650 mg PO Q6H PRN PRN Reason: PAIN LEVEL 6-10 Last Admin: 07/13/18 09:12 Dose: 650 mg Atorvastatin Calcium (Lipitor -) 10 mg PO HS [facility]S [facility] BEDS AT [facility] Last Admin: 07/12/18 23:02 Dose: 10 mg Citalopram Hydrobromide (Celexa -) 10 mg PO DAILY [facility]S [facility]CLUDE 234 BEDS AT THE [facility] Last Admin: 07/13/18 09:12 Dose: 10 mg Furosemide (Lasix -) 80 mg PO DAILY [facility]S [facility]CLUDE 234 BEDS AT THE [facility] Last Admin: 07/13/18 09:12 Dose: 80 mg Insulin Aspart (Novolog Vial Sliding Scale -) 1 vial SQ ACHS [facility] 234 BEDS AT [facility]; Protocol Last Admin: 07/13/18 11:04 Dose: 8 units Metoprolol Succinate (Toprol Xl -) 100 mg PO BID [facility] 234 BEDS AT [facility] Last Admin: 07/13/18 09:12 Dose: 100 mg Metoprolol Tartrate (Lopressor Injection -) 5 mg IVPUSH Q4H PRN PRN Reason: TACHYCARDIA Last Admin: 07/12/18 18:09 Dose: 5 mg Rivaroxaban (Xarelto -) 20 mg PO DAILY@1800 [facility] 234 BEDS AT [facility] Last Admin: 07/12/18 17:54 Dose: 20 mg - Objective Vital Signs: Vital Signs Temperature 97.6 F 07/13/18 09:49 Pulse Rate 102 H 07/13/18 09:49 Respiratory Rate 20 07/13/18 09:49 Blood Pressure 93/49 L 07/13/18 09:49 O2 Sat by Pulse Oximetry (%) 94 L 07/13/18 09:00 Labs: CBC, BMP 07/11/18 05:30 07/11/18 05:30 INR, PTT INR 1.03 (0.83-1.09) 07/08/18 10:06
--- NOTE | 2018-07-13 14:03 | DS ---
Physical Exam: SUBJECTIVE: Patient seen and examined. feels well,denies pain or shortness of breath. wants to go home. OBJECTIVE: cleared by cardiology for discharge Vital Signs Period Temp Pulse Resp BP Sys/Krishnan Pulse Ox Last 24 Hr 97.6 F-98.4 F 71-158 19-20 93-143/49-90 94-94 PHYSICAL EXAM GENERAL: The patient is awake, alert, and fully oriented, in no acute distress. HEAD: Normal with no signs of trauma. EYES: PERRL, extraocular movements intact, sclera anicteric, conjunctiva clear. No ptosis. ENT: Ears normal, nares patent, oropharynx clear without exudates, moist mucous membranes. NECK: Trachea midline, full range of motion, supple. LUNGS: Breath sounds equal, clear to auscultation bilaterally, no wheezes, no crackles, no accessory muscle use. HEART: afib, controlled. ABDOMEN: Soft, nontender, nondistended, normoactive bowel sounds, no guarding, no rebound, no hepatosplenomegaly, no masses. EXTREMITIES: no edema. left great toe scarring s/o great toe gangrene, was santyl NEUROLOGICAL: Normal speech, gait not observed. PSYCH: Normal mood, normal affect. SKIN: Warm, dry, normal turgor, no rashes or lesions noted LABS Laboratory Results - last 24 hr 07/12/18 07/12/18 07/13/18 16:23 23:01 06:04 POC Glucometer 265 262 240 07/13/18 10:47 POC Glucometer 220 HOSPITAL COURSE: Patient is a 68 year old female with a significant past medical history of CAD, asthma, hypercholesterolemia, insulin dependent diabetes, hypertension, recurrent urinary tract infections, nephrolithiasis s/p lithotripsy, osteoarthritis, obesity, and left great toe gangrene (s/p angiogram 2016). Patient presents to the ED with complaints of worsening fatigue, lower abdominal pain, diarrhea, nausea since returning from [place] 2 days ago. Patient was in [place] for about 1 month for the holidays. Patient sought medical attention in [place] and was diagnosed with a UTI. She was given antibiotics and continued them for 10 days but stopped them when they made her feel lightheaded. Patient continued to have generalized fatigue and nausea and still having lower abdominal pain. Patient reports a few episodes of loose stools but denies hematochezia. In the ED she was also noted to be in new onset rapid afib in the 140s. Problem list: ID: Rule out sepsis, ruled out UTI treated with Zosyn. Card: New onset atrial fibrillation with RVR, started on xarelto. Remained uncontrolled bursts of afib with ambulation 120-140s on low dose metoprolol. Metoprolol was titrated up to 100mg bid with better heart rate control. cardiology cleared patient for discharge without outpatient follow up. Psyche depression. re start home meds Endocrine Diabetes. Outpatient follow up. Better control of dietary intake recommended. May need nutrition follow up outpatient. Date of Admission:07/08/18 Date of Discharge: 07/13/18 Minutes to complete discharge: 60 Discharge Summary Reason For Visit: RAPID ATRIAL FIBRILLATION Current Active Problems Abdominal pain (Acute) Atrial fibrillation with RVR (Acute) Leukocytosis (Acute) Urinary tract infection (Acute) Condition: Improved - Instructions Diet, Activity, Other Instructions: Mrs. Chu You were admitted for rapid atrial fibrillation (fast irregular heart rate). We will be sending you home today. Here are our recommendations. Atrial fibrillation Start on Metoprolol (Lopressor) 100mg at 8am and 100mg at 8p - this medication helps control your heart from beating too fast. Do not skip doses. Xarelto 20mg (blood thinner) this prevents strokes. People with irregular heart rate are at a high risk for strokes STOP TAKING THE PLAVIX, AND ASPRIN. CONTINUE TAKING THE ATORVASTIN 10MG (CHOLESTEROL MEDICATION) Urinary Tract Infection You were treated with IV antibiotics. Have your urine studies repeated with your primary. Continue your medications as outlined in your discharge instructions. For your diabetes and follow up with your primary care doctor. Keep track of your blood sugars at home. Please see Dr. Matias for more heart workup. You will need an echo once your heart rate is better controlled. Your medications were called into [facility], [address] [place] [address]. [place]. Please call me with any questions. Please come back to the ER if you have chest pain or if your have palpitations. [facility] [phone] Referrals: Celestine Lang MD [Primary Care Provider] - 1 Week José Matias MD [Staff Physician] - 1 Week Disposition: HOME - Home Medications Comprehensive Discharge Medication List: Ambulatory Orders Atorvastatin Ca [Lipitor] 10 mg PO DAILY 08/04/13 Citalopram Hydrobromide [Celexa -] 20 mg PO DAILY 08/04/13 Insulin Detemir [Levemir Flexpen] 60 unit SQ BID 08/04/13 hydrOXYzine HCL [Atarax -] 25 mg PO DAILY 08/04/13 metFORMIN HCL [Glucophage] 1,000 mg PO DAILY 08/04/13 Insulin (Levemir) [Levemir Flexpen -] 4 units SQ DAILY 02/14/15 Insulin Aspart [Novolog Flexpen] 10 unit SQ AC 02/14/15 Glipizide 5 mg PO DAILY 05/01/16 Oxybutynin Chloride [Oxybutynin Chloride ER] 15 mg PO DAILY 05/01/16 Salmeterol/Fluticasone [Advair 100Mcg/50Mcg -] 1 inh PO BID 05/01/16 Citalopram Hydrobromide [Celexa -] 10 mg PO DAILY tablet 07/13/18 Furosemide [Lasix -] 80 mg PO DAILY #120 tablet 07/13/18 Metoprolol Succinate [Toprol XL -] 100 mg PO BID #60 tab.sr.24h 07/13/18 Rivaroxaban [Xarelto -] 20 mg PO DAILY@1800 #90 tablet 07/13/18 This patient is new to me today: No Emergency Visit: Yes ED Registration Date: 07/08/18 Care time: The patient presented to the Emergency Department on the above date and was hospitalized for further evaluation of their emergent condition. Critical Care patient: No - Discharge Referral Referred to [facility] Med P.C.: No
== END 2018-07-13 16:54 | disposition home or self-care (01) | DRG 689 ==
LOC: JER 08:54 → JERBED 10:00 → J4W 19:49
PROVIDERS: ADMIT Internal Medicine; ATTEND Nurse Practitioner Family
DX: N39.0 Urinary tract infection, site not specified (principal); I50.43 Acute on chronic combined systolic (congestive) and diastolic (congestive) heart failure; Z68.41 Body mass index [BMI] 40.0-44.9, adult; I11.0 Hypertensive heart disease with heart failure; J45.909 Unspecified asthma, uncomplicated; E78.00 Pure hypercholesterolemia, unspecified; E11.9 Type 2 diabetes mellitus without complications; Z79.4 Long term (current) use of insulin; E66.9 Obesity, unspecified; I48.91 Unspecified atrial fibrillation; I25.10 Atherosclerotic heart disease of native coronary artery without angina pectoris; G47.33 Obstructive sleep apnea (adult) (pediatric); E78.5 Hyperlipidemia, unspecified; E86.0 Dehydration; I34.0 Nonrheumatic mitral (valve) insufficiency; F32.9 Major depressive disorder, single episode, unspecified
CPT/HCPCS: 36415; 74177-TC; 80053; 80061; 81003; 81015; 82962; 83605; 83690; 83721; 83735; 84100; 84443; 84484; 85025; 85610; 85730; 86850; 86900; 86901; 87040; 87081; 87086; 87186; 93005; 93010; 93306-TC; 99285-25; J7030

== ENCOUNTER 2018-07-31 17:58 | Inpatient (IN) | payer OTHER ==
[2018-07-31 18:22] VITALS: BMI 44.6
[2018-07-31] MEDS ORDERED: SODIUM CHLORIDE 1,000 ML IV STA (18:59)
--- NOTE | 2018-07-31 18:59 | PDOC ---
History of Present Illness - General Chief Complaint: Lightheaded Stated Complaint: Chest Pain Time Seen by Provider: 07/31/18 18:55 History Source: Patient, Family Exam Limitations: Language Barrier - History of Present Illness Initial Comments: 68 yo F w a pmh of CAD, asthma, hypercholesterolemia, insulin dependent diabetes , hypertension, recurrent urinary tract infections , nephrolithiasis s/p lithotripsy, osteoarthritis, obesity, who presents to the emergency department with chest pressure, palpitations, lightheadedness, heart racing, generalized weakness, dysuria, frequency, hesitancy, and urgency. She reports that she was discharged from the hospital on 07/13 where she was treated for a UTI and was diagnosed with AFIB along with RVR. She endorses significant dysuria and believes she might have a UTI again. She saw her slackline operator earlier today - Dr. Matias, and when she was at his office she felt fine. But then after she left his office she all of a sudden felt weak, lightheaded, had this chest pressure, and "everything felt off." She was given metoprolol for her AFIB and recently had the dosage adjusted from 200 mg in the morning to 100. Family History: Noncontributory Social History: Denies toxic habits Surgical history: [facility] BSO, cholecystectomy Allergies: No known drug allergies PCP - Dr. Lang Museum Attendant: Dr. Matias Past History - Past Medical History Allergies/Adverse Reactions: Allergies Allergy/AdvReac Type Severity Reaction Status Date / Time No Known Drug Allergies Allergy Verified 02/14/15 09:39 Home Medications: Ambulatory Orders Atorvastatin Ca [Lipitor] 10 mg PO DAILY 08/04/13 Citalopram Hydrobromide [Celexa -] 20 mg PO DAILY 08/04/13 Insulin Detemir [Levemir Flexpen] 60 unit SQ BID 08/04/13 hydrOXYzine HCL [Atarax -] 25 mg PO DAILY 08/04/13 metFORMIN HCL [Glucophage] 1,000 mg PO DAILY 08/04/13 Insulin (Levemir) [Levemir Flexpen -] 4 units SQ DAILY 02/14/15 Insulin Aspart [Novolog Flexpen] 10 unit SQ AC 02/14/15 Glipizide 5 mg PO DAILY 05/01/16 Oxybutynin Chloride [Oxybutynin Chloride ER] 15 mg PO DAILY 05/01/16 Salmeterol/Fluticasone [Advair 100Mcg/50Mcg -] 1 inh PO BID 05/01/16 Furosemide [Lasix -] 80 mg PO DAILY #120 tablet 07/13/18 Metoprolol Succinate [Toprol XL -] 100 mg PO BID #60 tab.sr.24h 07/13/18 Rivaroxaban [Xarelto -] 20 mg PO DAILY@1800 #90 tablet 07/13/18 Diltiazem [Cardizem -] 30 mg PO ONCE 07/31/18 Asthma: Yes Cardiac Disorders: Yes (bradycardic) COPD: No Diabetes: Yes HTN: Yes Hypercholesterolemia: Yes - Surgical History Appendectomy: Yes Cholecystectomy: Yes - Immunization History Immunization Up to Date: Yes - Suicide/Smoking/Psychosocial Hx Smoking Status: No Smoking History: Unknown if ever smoked Have you smoked in the past 12 months: No Number of Cigarettes Smoked Daily: 0 Information on smoking cessation initiated: No Hx Alcohol Use: No Drug/Substance Use Hx: No Substance Use Type: None Hx Substance Use Treatment: No Review of Systems - Review of Systems Able to Perform ROS?: Yes Comments:: CONSTITUTIONAL: Present: Fatigue, chills Absent: fever EYES: Absent: visual changes ENT: Absent: ear pain, no sore throat CARDIOVASCULAR: Present: Chest pain, palpitations RESPIRATORY: Present: cough, SOB GI: Absent: abdominal pain, no nausea, no vomiting, no constipation, no diarrhea GENITOURINARY: Present: dysuria, frequency, urgency, hematuria MUSKULOSKELETAL: Absent: back pain, no arthralgia, no myalgia SKIN: Absent: rash NEURO: Absent: headache *Physical Exam - Vital Signs Last Vital Signs Temp Pulse Resp BP Pulse Ox 97.8 F 55 L 16 107/56 L 96 07/31/18 18:17 07/31/18 19:16 07/31/18 19:16 07/31/18 19:16 07/31/18 19:16 - Physical Exam Comments: GENERAL: Patient is lying on the bed and appears uncomfortable. HEENT: Normocephalic, atraumatic. PERRL, EOM intact. CARDIOVASCULAR: Bradycardic rate and irregular rhythm. PULMONARY: Clear to auscultation bilaterally. ABDOMEN: Soft, non-distended, non-tender. EXTREMITIES: Normal ROM in all four extremities. No gross deformities. SKIN: She looks pale. Warm, dry. No rash NEUROLOGICAL: No focal neurological deficits. Moderate Sedation - Procedure Monitoring Vital Signs: Procedure Monitoring Vital Signs Temperature 97.8 F 07/31/18 18:17 Pulse Rate 55 L 07/31/18 19:16 Respiratory Rate 16 07/31/18 19:16 Blood Pressure 107/56 L 07/31/18 19:16 O2 Sat by Pulse Oximetry (%) 96 07/31/18 19:16 ED Treatment Course - LABORATORY CBC & Chemistry Diagram: 07/31/18 19:11 07/31/18 19:11 - ADDITIONAL ORDERS Additional order review: Laboratory Results 07/31/18 07/31/18 07/31/18 21:04 19:11 19:11 PT with INR 29.40 H INR 2.47 H Sodium 137 Potassium 6.4 H* Chloride 104 Carbon Dioxide 25 Anion Gap 8 BUN 38 H Creatinine 1.9 H Creat Clearance w eGFR 26.29 Random Glucose 366 H* Calcium 8.0 L Magnesium 2.7 H Total Bilirubin 0.6 AST 405 H ALT 296 H Alkaline Phosphatase 422 H Creatine Kinase 52 Troponin I < 0.02 Total Protein 6.4 Albumin 2.9 L Urine Color Annabella Urine Appearance Slcloudy Urine pH 5.0 Ur Specific [place] 1.017 Urine Protein 1+ H Urine Glucose (UA) 1+ H Urine Ketones Negative Urine Blood Negative Urine Nitrite Negative Urine Bilirubin Negative Urine Urobilinogen 4.0 e.u/dl H Ur Leukocyte Esterase Negative Urine WBC (Auto) 4 Urine RBC (Auto) 1 Hyaline Casts 47 Urine Mucus Rare 07/31/18 19:11 RBC 2.99 L MCV 88.7 MCHC 32.3 RDW 15.9 H MPV 9.6 Neutrophils % 83.2 H D Lymphocytes % 8.3 D Monocytes % 6.8 Eosinophils % 0.8 D Basophils % 0.9 - RADIOLOGY Radiology Studies Ordered: Category Date Time Status CHEST PA & LAT [RAD] Stat Radiology 07/31/18 18:59 Ordered - Medications Given in the ED: ED Medications Discontinued Medications Generic Name Dose Route Start Last Admin Trade Name Freq PRN Reason Stop Dose Admin Acetaminophen 975 mg 07/31/18 21:24 07/31/18 21:31 Tylenol - PO 07/31/18 21:25 975 mg ONCE ONE Administration Albuterol Sulfate 1 amp 07/31/18 20:36 07/31/18 21:02 Ventolin 0.5% - NEB 07/31/18 20:37 1 amp ONCE ONE Administration Calcium Gluconate 1,000 mg 07/31/18 20:34 07/31/18 21:02 Calcium Gluconate 10% - IVPUSH 07/31/18 20:35 1,000 mg ONCE ONE Administration Citalopram Hydrobromide 20 mg 07/31/18 21:25 07/31/18 21:31 Celexa - PO 07/31/18 21:26 20 mg ONCE ONE Administration Sodium Chloride 1,000 mls @ 1,000 mls/hr 07/31/18 18:59 07/31/18 19:14 Normal Saline - IV 07/31/18 19:58 1,000 mls/hr ASDIR STA Administration Piperacillin Sod/Tazobactam 50 mls @ 100 mls/hr 07/31/18 21:34 07/31/18 22:40 Sod 3.375 gm/ Dextrose IVPB 07/31/18 22:03 100 mls/hr ONCE ONE Administration Protocol Insulin Human Regular 10 units 07/31/18 20:27 07/31/18 21:02 Novolin R Vial *For Ivpush Or Iv Drip Only* IVPUSH 07/31/18 20:28 10 units ONCE ONE Administration Sodium Polystyrene Sulfonate 15 gm 07/31/18 20:27 07/31/18 21:14 Kayexalate - PO 07/31/18 20:28 15 gm ONCE ONE Administration Medical Decision Making - Medical Decision Making 68 yo F w a pmh of CAD, asthma, hypercholesterolemia, insulin dependent diabetes , hypertension, recurrent urinary tract infections , nephrolithiasis s/p lithotripsy, osteoarthritis, obesity, who presents to the emergency department with chest pressure, palpitations, lightheadedness, heart racing, generalized weakness, dysuria, frequency, hesitancy, and urgency. She reports that she was discharged from the hospital on 07/13 where she was treated for a UTI and was diagnosed with AFIB along with RVR. DDx IBNLT: Afib w RVR, UTI, Metabolic derangement, ACS/ME, Arrhythmia Plan: Labs, Urine, CXR, EKG, re-assess. Patient has multiple laboratory metabolic derangements. She is hyperkalemic at 6.4 - Giving Insulin, kayexelate, albuterol and calcium. There is an elevated white count with a left shift. - Zosyn given. LFT's are elevated - Obtaining RUQ US Patient will be admitted for further care. *DC/Admit/Observation/Transfer Diagnosis at time of Disposition: Leukocytosis, Hyperkalemia, Acute kidney injury, Atrial fibrillation with RVR, Elevated liver enzymes - Discharge Dispostion Condition at time of disposition: Guarded - Referrals - Patient Instructions - Post Discharge Activity
--- NOTE | 2018-07-31 19:28 | PDOC ---
Attending Attestation - HPI HPI: 07/31/18 19:51 The patient is a 68 year old female with a PMH of CAD, asthma, hypercholesterolemia, IDDM, HTN, recurrent UTIs , nephrolithiasis s/p lithotripsy, osteoarthritis, and obesity who presents to the emergency department complaining of urinary symptoms, chest pressure, palpitations, lightheadedness, and generalized weakness. Patient describes the urinary symptoms as dysuria, frequency, hesitancy, and urgency. Patient's last UTI was on 07/13, diagnosed with Afib and RVR then and discharged on metoprolol. Patient states her symptoms today are similar to her last UTI. Patient saw her medical pathology teacher, Dr. Matias, today but was not experiencing her symptoms until after leaving the office. Allergies: NKDA Social History: Denies alcohol, drug or cigarette use. Surgical history: [facility] BSO, cholecystectomy PCP: Dr. Lang Bead Worker Sewing: Dr. Matias - Physicial Exam PE: 07/31/18 20:36 ADULT PHYSICAL EXAM Constitutional: Awake, alert, oriented. (+) Generally weak. (+) Morbidly obese. Head: Normocephalic. Atraumatic Eyes: PERRL. EOMI. Conjunctivae are not pale. ENT: (+) dry mucus membranes and dry, cracked tongue. Posterior pharynx without exudates or erythema. Uvula midline. Neck: Supple. Full ROM. No lymphadenopathy. Cardiovascular: Regular rate. Regular rhythm. S1, S2 regular. Distal pulses are 2+ and symmetric. Pulmonary/Chest: No evidence of respiratory distress. Clear to auscultation bilaterally No wheezing, rales or rhonchi. Abdominal: Soft and non-distended. There is no tenderness. No rebound, guarding or rigidity. No organomegaly. No palpable masses. Good bowel sounds. Back: No CVA tenderness. Musculoskeletal: Moving all extremities. Skin: Skin is warm. No petechiae. No purpura. (+) Tenting skin. Neurological: Alert and oriented to person, place, and time. Cranial nerves II -XII are grossly intact. Psychiatric: Good eye contact. Normal interaction, affect and behavior. <Haley Kan - Last Filed: 07/31/18 20:42> - Resident Resident Name: Gal Kiser - ED Attending Attestation I have performed the following: I have examined & evaluated the patient, The case was reviewed & discussed with the resident, I agree w/resident's findings & plan, Exceptions are as noted - Critical Care Time Total Critical Care Time: 35 Critical Care Statement: The care of this patient involved high complexity decision making to prevent further life threatening deterioration of the patient 's condition and/or to evaluate & treat vital organ system(s) failure or risk of failure. - Medical Decision Making 07/31/18 19:28 I, Dr. Jaelyn Rivas, DO, attest that this document has been prepared under my direction and personally reviewed by me in its entirety. I further attest, that it accurately reflects all work, treatment, procedures and medical decision -making performed by me. 07/31/18 20:32 a/p: 68yo female with generalized weakness, palpitations, dysuria -blood pressure low up on arrival after leaving Dr. Matias earlier today -dx with a uti yesterday by Dr. Levy, dysuria-started oral abx, unsure which one -leg weakness b/l -will send labs, ua, ekg -will monitor and reassess -ivf hydraiton 07/31/18 20:33 hyperkalemia noel on labs will give meds for hyerkalemia 07/31/18 20:35 pt will need admission for further monitoring microblog [facility] 07/31/18 21:30 case discussed with [facility] who accepts pt to service will start zosyn for potential uti <Jaelyn Rivas - Last Filed: 07/31/18 21:34> *DC/Admit/Observation/Transfer - Discharge Dispostion Decision to Admit order: Yes <Jaelyn Rivas - Last Filed: 07/31/18 21:34> Diagnosis at time of Disposition: Leukocytosis, Hyperkalemia, Acute kidney injury - Discharge Dispostion Condition at time of disposition: Guarded - Referrals Referrals: Celestine Lang MD [Primary Care Provider] - - Patient Instructions - Post Discharge Activity Heart Score/ECG Review - ECG Intrepretation Comment:: 07/31/18 20:33 sinus deepti at 55, nl axis, qtc 489, t wave inversions III which are nonspecific , no acute st changes <Jaelyn Rivas - Last Filed: 07/31/18 21:34>
[2018-07-31 19:46] LABS: BASO % 0.9 % (0-2.0); EOS % 0.8 % (0-4.5); HEMATOCRIT 26.5 % (32.4-45.2); HEMOGLOBIN 8.6 GM/dL (10.7-15.3); LYMPH % 8.3 % (8-40); MCH 28.7 pg (25.7-33.7); MCHC 32.3 g/dl (32.0-36.0); MEAN CELL VOLUME 88.7 fl (80-96); MEAN PLT VOLUME 9.6 fl (7.5-11.1); MONO % 6.8 % (3.8-10.2); NEUT % 83.2 % (42.8-82.8); PLATELET COUNT 333 K/MM3 (134-434); RBC 2.99 M/mm3 (3.60-5.2); RDW 15.9 % (11.6-15.6); WHITE BLOOD COUNT 14.9 K/mm3 (4.0-10.0)
[2018-07-31 19:57] LABS: INR 2.47 (0.83-1.09); PROTHROMBIN TIME (PATIENT) 29.4 SEC (9.7-13.0)
[2018-07-31 20:23] LABS: ALBUMIN 2.9 g/dl (3.4-5.0); ALK PHOS 422 U/L (45-117); ANION GAP 8 MMOL/L (8-16); BILIRUBIN,TOTAL 0.6 mg/dL (0.2-1); BLOOD UREA NITROGEN 38 mg/dL (7-18); CHLORIDE 104 mmol/L (98-107); CO2 25 mmol/L (21-32); CREATININE 1.9 mg/dL (0.55-1.3); MAGNESIUM 2.7 mg/dL (1.8-2.4); SGOT/AST 405 U/L (15-37); SGPT/ALT 296 U/L (13-61); SODIUM 137 mmol/L (136-145); TOT PROT 6.4 g/dl (6.4-8.2)
[2018-07-31 20:26] LABS: GLUCOSE,RANDOM 366 mg/dL (74-106)
[2018-07-31 20:27] LABS: POTASSIUM 6.4 mmol/L (3.5-5.1)
[2018-07-31] MEDS ORDERED: INSULIN REGULAR HUMAN 100 UNITS/ML *VIAL IVPUSH ONE (20:27)
[2018-07-31] MEDS ORDERED: SODIUM POLYSTYRENE SULFONATE 15 GM/60 ML BOTTLE PO ONE (20:27)
[2018-07-31] MEDS ORDERED: CALCIUM GLUCONATE 10% - 1,000 MG/10 ML VIAL IVPUSH ONE (20:34)
[2018-07-31] MEDS ORDERED: ALBUTEROL SO4 0.5 % INH SOLN 2.5 MG/0.5 ML VIAL.NEB. NEB ONE (20:36)
[2018-07-31] MEDS ORDERED: CALCIUM GLUCONATE 10% - 1,000 MG/10 ML VIAL ONE (20:39)
[2018-07-31] MEDS ORDERED: INSULIN REGULAR HUMAN 100 UNITS/ML *VIAL ONE (20:39)
[2018-07-31] MEDS ORDERED: ALBUTEROL SO4 0.083% IH SOL 2.5 MG/3 ML VIAL.NEB. NEB ONE (20:47)
--- NOTE | 2018-07-31 21:01 | PN ---
Teaching Attending Note Name of Resident: Kb Russo ATTENDING PHYSICIAN STATEMENT I saw and evaluated the patient. I reviewed the resident's note and discussed the case with the resident. I agree with the resident's findings and plan as documented. SUBJECTIVE: Patient is a 68 year old woman with PMH of CAD, asthma, hypercholesterolemia, insulin-treated DM, hypertension, recurrent urinary tract infections , nephrolithiasis (s/p lithotripsy), osteoarthritis and morbid obesity, who presents to the ER with chest pressure, palpitations, lightheadedness, heart racing, generalized weakness, dysuria, frequency, hesitancy, and urgency. She reports that she was discharged from the hospital on 07/13 where she was treated for a UTI and was diagnosed with AFIB along with RVR. She has dysuria and believes she might have a UTI again. She saw her studio sales associate earlier today - Dr. Matias, and when she was at his office she felt fine. But then after she left his office she all of a sudden felt weak, lightheaded, had this chest pressure, and "everything felt off." She was given metoprolol for her AFIB and recently had the dosage adjusted from 200 mg in the morning to 100. OBJECTIVE: Alert, weak and morbidly obese Vital Signs Period Temp Pulse Resp BP Sys/Krishnan Pulse Ox Last 24 Hr 97.8 F 55-55 16-16 96-107/45-56 96-97 HEENT: No Jaundice, eye redness or discharge, PERRLA, EOMI. Normocephalic, atraumatic. External ears are normal and hearing is grossly intact. No nasal discharge. Neck: Supple, nontender. No palpable adenopathy or thyromegaly. No JVD Chest: Good effort. Clear to auscultation and percussion. Heart: Regular. No S3, rub or murmur Abdomen: Not distended, soft, nontender and no HSM. No rebound or guarding. Normoactive bowel sounds. Ext: Peripheral pulses intact. No leg edema. Skin: Warm and dry. No petechiae, rash or ecchymosis. Neuro: Alert. Oriented x3. CN 2-12 grossly intact. Sensation grossly intact in all four extremities and DTR are symmetric. Home Medications Medication Instructions Recorded Atorvastatin Ca [Lipitor] 10 mg PO DAILY 08/04/13 Citalopram Hydrobromide [Celexa -] 20 mg PO DAILY 08/04/13 Insulin Detemir [Levemir Flexpen] 60 unit SQ BID 08/04/13 hydrOXYzine HCL [Atarax -] 25 mg PO DAILY 08/04/13 metFORMIN HCL [Glucophage] 1,000 mg PO DAILY 08/04/13 Insulin (Levemir) [Levemir Flexpen 4 units SQ DAILY 02/14/15 -] Insulin Aspart [Novolog Flexpen] 10 unit SQ AC 02/14/15 Glipizide 5 mg PO DAILY 05/01/16 Oxybutynin Chloride [Oxybutynin 15 mg PO DAILY 05/01/16 Chloride ER] Salmeterol/Fluticasone [Advair 1 inh PO BID 05/01/16 100Mcg/50Mcg -] Furosemide [Lasix -] 80 mg PO DAILY #120 tablet 07/13/18 Metoprolol Succinate [Toprol XL -] 100 mg PO BID #60 tab.sr.24h 07/13/18 Rivaroxaban [Xarelto -] 20 mg PO DAILY@1800 #90 tablet 07/13/18 Diltiazem [Cardizem -] 30 mg PO ONCE 07/31/18 Abnormal Lab Results 07/31/18 07/31/18 07/31/18 19:11 19:11 19:11 WBC 14.9 H RBC 2.99 L Hgb 8.6 L Hct 26.5 L D RDW 15.9 H Absolute Neuts (auto) 12.4 H Neutrophils % 83.2 H D PT with INR 29.40 H INR 2.47 H Potassium 6.4 H* BUN 38 H Creatinine 1.9 H Random Glucose 366 H* Calcium 8.0 L Magnesium 2.7 H AST 405 H ALT 296 H Alkaline Phosphatase 422 H Albumin 2.9 L ASSESSMENT AND PLAN: 1. Chest Pressure/Weakness - No acute ST-T wave changes or changes of hyperkalemia on EKG. Will admit to telemetry to rule out ACS. Excessive diuresis , hyperkalemia and/or sepsis may explain weakness. Will get head CT in view of episode of syncope at home yesterday; get CXR, CT abd/pelvis to evaluate the liver and genitourinary system; hepatitis serology, sepsis work up and trend LFTs. Place polanco if any evidence of urinary obstruction - which may explain hyperkalemia and ART. Patient was recently hospitalized - so pending results of sepsis workup, will treat with IV Zosyn and Zyvox (Avoiding vancomycin due to ART). Got acute measures for hyperkalemia (?caused by ART and transcellular shift) in the ER. Will repeat K stat, continue kayexalate and correct hyperglycemia. Continue Xarelto for Afib. 2. Hypoalbuminemia - Possibly due to combined effects of proteinuria, malnutrition and inflammation associated with comorbid chronic conditions. Will ensure adequate dietary protein intake and also consult certified nurse. 3. Uncontrolled DM - For now, we will hold the home diabetes drugs and implement sliding scale insulin regimen. Provide comprehensive diabetes care with patient teaching and counseling about the importance of euglycemia, eye care and foot care. 4. ART - Cause unclear (aggressive diuresis? - was on lasix 80 mg bid). Will rule out obstruction stat, consult nephrology and avoid nephrotoxic agents such as NSAIDS, aminoglycosides, contrast dyes and certain Alternative medicine products. 5. Anemia - Likely multifactorial. Will do basic anemia work up including serial stool guaiacs, reticulocyte count and iron studies. 6. Morbid Obesity - Will provide patient all the necessary assistance, counseling and positive reinforcement to facilitate weight loss. Consult certified nurse. 7. DVT prophylaxis - Patient on Xarelto. 8. Advance directives - Full code
[2018-07-31] MEDS ORDERED: ACETAMINOPHEN 325 MG TABLET (FP) PO ONE (21:24)
[2018-07-31] MEDS ORDERED: CITALOPRAM HYDROBROMIDE 20 MG TABLET (FP) PO ONE (21:25)
[2018-07-31] MEDS ORDERED: ACETAMINOPHEN 325 MG TABLET (FP) ONE (21:26)
[2018-07-31] MEDS ORDERED: CITALOPRAM HYDROBROMIDE 10 MG TABLET (FP) ONE (21:26)
[2018-07-31] MEDS ORDERED: PIPERACILLIN/TAZOB 3.375 GM 3.375 GM in DEXTROSE 5%-WATER - 50 ML IVPB ONE (21:34)
[2018-07-31 21:35] LABS: URINE APPEARANCE SLCLOUDY; URINE BILIRUBIN NEGATIVE (<2.0 mg/dL); URINE COLOR AMBER; URINE GLUCOSE (UA) 1+ (NEGATIVE); URINE KETONE NEGATIVE (NEGATIVE); URINE LEUK ESTERASE NEGATIVE (NEGATIVE); URINE NITRITE NEGATIVE (NEGATIVE); URINE PROTEIN 1+ (NEGATIVE); URINE UROBILINOGEN 4.0 E.U/dl mg/dL (0.2-1.0)
[2018-07-31 21:44] LABS: URINE HYALINE CAST 47 /lpf; URINE MUCUS RARE
[2018-07-31] MEDS ORDERED: PIPERACILLIN/TAZOB 3.375 GM 3.375 GM/50 ML BAG IVPB ONE (22:16)
[2018-07-31] MEDS ORDERED: VANCOMYCIN 1,000 MG in DEXTROSE 5%-WATER - 250 ML IVPB SCH (23:15)
--- NOTE | 2018-07-31 23:17 | HP ---
CHIEF COMPLAINT: Chest pressure, lightheadedness PCP: Dr. Edel Matias cards Dr. Murali Figueroa urology HISTORY OF PRESENT ILLNESS: The patient is a 68 yo f w/ PMH CAD, athma, HLD, IDDM, HTN who comes into the ED c/p a 1 day hx of chest pressure and lightheadedness. The patient was recently admitted to [facility] on 07/08 (dc 07/13) for UTI. SHe was treated with ceftriaxone and dx w/ afib during her admission. On discharge, the patient's metoprolol was lowered from 200mg BID to 100mg BID and her Lasix was increased from 40mg daily to 80mg daily. She was also started on Xarelto. Over the past 1 week, the patient has been experiencing generalized fatigue. Today, the patient went to visit her maintenance technician 3rd shift, who decreased her Lasix from 80mg back to 40mg. Upon leaving the maintenance technician 3rd shift, the patient felt an acute onset of chest pressure and lightheadedness and presented to the ED for evaluation. Patient also complains of right upper quadrant, RLQ and right flank pain which has been present since her last admission. Of note, the patient also endorses an episode yesterday where she was on her toilet and straining to go to the bathroom, then woke up on her floor with no recollection of how she got there. Patient is unsure if she hit her head at that time. ER course was notable for: (1) K 6.4 s/p calcium gluconate and kayexalate (2) Cr. 1.9, BUN 38 (3) Recent Travel: none PAST MEDICAL HISTORY: Recurrent UTIs Nephrolithiasis s/p lithotrypsy osteoarthritis PAST SURGICAL HISTORY: Lithotrypsy Cholecystectomy MELANIE w/ BSO Social History: Smoking: denies Alcohol: denies Drugs: denies Family History: non-contributory Allergies No Known Drug Allergies Allergy (Verified 02/14/15 09:39) HOME MEDICATIONS: Home Medications Medication Instructions Recorded Atorvastatin Ca [Lipitor] 10 mg PO DAILY 08/04/13 Citalopram Hydrobromide [Celexa -] 20 mg PO DAILY 08/04/13 Insulin Detemir [Levemir Flexpen] 60 unit SQ BID 08/04/13 hydrOXYzine HCL [Atarax -] 25 mg PO DAILY 08/04/13 metFORMIN HCL [Glucophage] 1,000 mg PO DAILY 08/04/13 Insulin (Levemir) [Levemir Flexpen 4 units SQ DAILY 02/14/15 -] Insulin Aspart [Novolog Flexpen] 10 unit SQ AC 02/14/15 Glipizide 5 mg PO DAILY 05/01/16 Oxybutynin Chloride [Oxybutynin 15 mg PO DAILY 05/01/16 Chloride ER] Salmeterol/Fluticasone [Advair 1 inh PO BID 05/01/16 100Mcg/50Mcg -] Furosemide [Lasix -] 80 mg PO DAILY #120 tablet 07/13/18 Metoprolol Succinate [Toprol XL -] 100 mg PO BID #60 tab.sr.24h 07/13/18 Rivaroxaban [Xarelto -] 20 mg PO DAILY@1800 #90 tablet 07/13/18 Diltiazem [Cardizem -] 30 mg PO ONCE 07/31/18 REVIEW OF SYSTEMS CONSTITUTIONAL: Absent: fever, chills, diaphoresis, loss of appetite, weight change HEENT: Absent: rhinorrhea, nasal congestion, throat pain, throat swelling, difficulty swallowing, mouth swelling, ear pain, eye pain, visual changes CARDIOVASCULAR: Absent: irregular heart rate, peripheral edema RESPIRATORY: Absent: cough, dyspnea with exertion, orthopnea, wheezing, stridor, hemoptysis GASTROINTESTINAL: Absent: abdominal pain, abdominal distension, nausea, vomiting, diarrhea, constipation, melena, hematochezia GENITOURINARY: Absent: dysuria, frequency, urgency, hesitancy, hematuria, flank pain, genital pain MUSCULOSKELETAL: Absent: myalgia, arthralgia, joint swelling, back pain, neck pain SKIN: Absent: rash, itching, pallor HEMATOLOGIC/IMMUNOLOGIC: Absent: easy bleeding, easy bruising, lymphadenopathy, frequent infections ENDOCRINE: Absent: unexplained weight gain, unexplained weight loss, heat intolerance, cold intolerance NEUROLOGIC: Absent: headache, focal weakness or paresthesias, unsteady gait, seizure, mental status changes, bladder or bowel incontinence PSYCHIATRIC: Absent: anxiety, depression, suicidal or homicidal ideation, hallucinations. PHYSICAL EXAMINATION Vital Signs - 24 hr 07/31/18 07/31/18 18:17 19:16 Temperature 97.8 F Pulse Rate 55 L Pulse Rate [ 55 L Left Apical] Respiratory 16 16 Rate Blood Pressure 96/45 L Blood Pressure 107/56 L [Left Arm] O2 Sat by Pulse 97 96 Oximetry (%) GENERAL: Awake, alert, and fully oriented, in no acute distress. HEAD: Normal with no signs of trauma. EYES: Pupils equal, round and reactive to light, extraocular movements intact, sclera anicteric, conjunctiva clear. No lid lag. LUNGS: Breath sounds equal, clear to auscultation bilaterally. No wheezes, and no crackles. No accessory muscle use. HEART: Regular rate and rhythm, normal S1 and S2 without murmur, rub or gallop. ABDOMEN: Soft, nontender, not distended, normoactive bowel sounds, no guarding, no rebound, no masses. No hepatomegaly or splenomegaly. LOWER EXTREMITIES: 2+ pulses, warm, well-perfused. No calf tenderness. 1+ peripheral edema. NEUROLOGICAL: Cranial nerves II-X intact. Normal speech. SKIN: Warm, dry, normal turgor, no rashes or lesions noted, normal capillary refill. Laboratory Results - last 24 hr 07/31/18 07/31/18 07/31/18 19:11 19:11 19:11 WBC 14.9 H RBC 2.99 L Hgb 8.6 L Hct 26.5 L D MCV 88.7 MCH 28.7 MCHC 32.3 RDW 15.9 H Plt Count 333 MPV 9.6 Absolute Neuts (auto) 12.4 H Neutrophils % 83.2 H D Lymphocytes % 8.3 D Monocytes % 6.8 Eosinophils % 0.8 D Basophils % 0.9 Nucleated RBC % 0 PT with INR 29.40 H INR 2.47 H Sodium 137 Potassium 6.4 H* Chloride 104 Carbon Dioxide 25 Anion Gap 8 BUN 38 H Creatinine 1.9 H Creat Clearance w eGFR 26.29 Random Glucose 366 H* Calcium 8.0 L Magnesium 2.7 H Total Bilirubin 0.6 AST 405 H ALT 296 H Alkaline Phosphatase 422 H Creatine Kinase 52 Troponin I < 0.02 Total Protein 6.4 Albumin 2.9 L Urine Color Urine Appearance Urine pH Ur Specific Valentine Urine Protein Urine Glucose (UA) Urine Ketones Urine Blood Urine Nitrite Urine Bilirubin Urine Urobilinogen Ur Leukocyte Esterase Urine WBC (Auto) Urine RBC (Auto) Hyaline Casts Urine Mucus 07/31/18 21:04 WBC RBC Hgb Hct MCV MCH MCHC RDW Plt Count MPV Absolute Neuts (auto) Neutrophils % Lymphocytes % Monocytes % Eosinophils % Basophils % Nucleated RBC % PT with INR INR Sodium Potassium Chloride Carbon Dioxide Anion Gap BUN Creatinine Creat Clearance w eGFR Random Glucose Calcium Magnesium Total Bilirubin AST ALT Alkaline Phosphatase Creatine Kinase Troponin I Total Protein Albumin Urine Color Annabella Urine Appearance Slcloudy Urine pH 5.0 Ur Specific Valentine 1.017 Urine Protein 1+ H Urine Glucose (UA) 1+ H Urine Ketones Negative Urine Blood Negative Urine Nitrite Negative Urine Bilirubin Negative Urine Urobilinogen 4.0 e.u/dl H Ur Leukocyte Esterase Negative Urine WBC (Auto) 4 Urine RBC (Auto) 1 Hyaline Casts 47 Urine Mucus Rare ASSESSMENT/PLAN: The patient is a 68 yo f w/ PMH CAD, asthma, HLD, IDDM, HTN who comesinto the ed c/o lightheadedness and gereralized weakness found to have an ART and a potassium of 6.4 #generalized malaise, leukocytosis and elevated LFTs concerning for cholangitis -CTAP shows RUQ stranding c/f cholangitis vs pancreatitis -s/p zosyn in ed -c/w zosyn 3.375 q6h IV -add zyvox 600mg q12h -ID consult: Gabbi -blood culture and urine cx -CXR -hepatitis serologies #Hyperkalemia and elevated creatinine 2/2 ART; eitology unclear - K 6.9 -s/p calcium gluconate , kayekalate in ED -Kayexalate 30mg Q4h x 3 doses -insert polanco to monitor output -renal consult: Dr. Falcon -rpt K 5.4 -trend K+ #DM -ISS ACHS -BGM ACHS #FEN -no fluids indicated -monitor lytes as above -diabetic diet #Prophy -patient on xarelto as outpatient #Dispo -admit tele Visit type - Emergency Visit Emergency Visit: Yes ED Registration Date: 07/31/18 Care time: The patient presented to the Emergency Department on the above date and was hospitalized for further evaluation of their emergent condition. - New Patient This patient is new to me today: Yes Date on this admission: 08/01/18 - Critical Care Critical Care patient: No
[2018-08-01] MEDS: SODIUM POLYSTYRENE SULFONATE 15 GM/60 ML BOTTLE PO SCH ×3 (01:46→10:29)
[2018-08-01] MEDS: LINEZOLID 600 MG PREMIX BAG 600 MG/300 ML BAG IVPB SCH ×2 (01:46→10:35)
[2018-08-01 02:01] LABS: ANION GAP 6 MMOL/L (8-16); BLOOD UREA NITROGEN 39 mg/dL (7-18); CALCIUM 8.1 mg/dL (8.5-10.1); CHLORIDE 106 mmol/L (98-107); CO2 25 mmol/L (21-32); GLUCOSE,RANDOM 192 mg/dL (74-106); POTASSIUM 5.5 mmol/L (3.5-5.1); SODIUM 137 mmol/L (136-145)
[2018-08-01] MEDS ORDERED: PROCHLORPERAZINE INJECTION 10 MG/2 ML VIAL IVPB ONE (02:39)
[2018-08-01] MEDS ORDERED: DEXTROSE 5%-WATER - 50 ML IVPB ONE ×4 (02:46→21:18)
[2018-08-01] MEDS ORDERED: PIPERACILLIN/TAZOBACTAM 3.375 GM VIAL IVPB ONE ×4 (02:46→21:17)
[2018-08-01] MEDS: PIPERACILLIN/TAZOB 3.375 GM 3.375 GM in DEXTROSE 5%-WATER - 50 ML IVPB SCH ×4 (02:49→21:26)
[2018-08-01] MEDS ORDERED: ALBUTEROL SO4 0.083% IH SOL 2.5 MG/3 ML VIAL.NEB. NEB PRN (02:49)
[2018-08-01] MEDS ORDERED: INSULIN (NOVOLOG) ASPART 100 UNITS/ML 10ML VIAL ONE (06:05)
[2018-08-01] MEDS: INSULIN SLIDING SCALE (NOVOLOG) 1 VIAL SQ SCH ×4 (06:17→21:27)
[2018-08-01 06:50] LABS: HEMATOCRIT 23.8 % (32.4-45.2); HEMOGLOBIN 7.7 GM/dL (10.7-15.3); MCHC 32.2 g/dl (32.0-36.0); MEAN CELL VOLUME 86.9 fl (80-96); MEAN PLT VOLUME 9.4 fl (7.5-11.1); PLATELET COUNT 288 K/MM3 (134-434); RBC 2.74 M/mm3 (3.60-5.2); RDW 15.8 % (11.6-15.6)
[2018-08-01 07:19] LABS: ANION GAP 6 MMOL/L (8-16); BLOOD UREA NITROGEN 38 mg/dL (7-18); CALCIUM 7.8 mg/dL (8.5-10.1); CHLORIDE 103 mmol/L (98-107); CO2 26 mmol/L (21-32); CREATININE 1.9 mg/dL (0.55-1.3); GLUCOSE,RANDOM 242 mg/dL (74-106); MAGNESIUM 2.4 mg/dL (1.8-2.4); PHOSPHOROUS 3.8 mg/dL (2.5-4.9); POTASSIUM 5.8 mmol/L (3.5-5.1); SODIUM 134 mmol/L (136-145)
[2018-08-01 07:24] LABS: INR 1.78 (0.83-1.09); PROTHROMBIN TIME (PATIENT) 21.1 SEC (9.7-13.0)
[2018-08-01 07:27] LABS: ACTIVATED PTT 29.8 SECONDS (25.2-36.5)
[2018-08-01 07:58] LABS: LIPASE 63 U/L (73-393)
[2018-08-01] MEDS ORDERED: SODIUM POLYSTYRENE SULFONATE 15 GM/60 ML BOTTLE PO ONE (09:00)
[2018-08-01] MEDS ORDERED: PT OWN MED DRAWER 7, Y5N ONE (10:32)
[2018-08-01] MEDS: dilTIAZem HCL 30 MG TABLET (FP) PO SCH (10:33)
[2018-08-01] MEDS: CITALOPRAM HYDROBROMIDE 20 MG TABLET (FP) PO SCH (10:33)
[2018-08-01] MEDS: SOLIFENACIN SUCCINATE 5 MG TAB (FP) PO SCH (10:33)
[2018-08-01] MEDS: FLUTICASONE/SALMETEROL 100 MCG/50 MCG DISKUS IH SCH ×2 (10:33→21:33)
--- NOTE | 2018-08-01 11:57 | EKG ---
Test Reason : Blood Pressure : / mmHG Vent. Rate : 055 BPM Atrial Rate : 055 BPM P-R Int : 138 ms QRS Dur : 094 ms QT Int : 512 ms P-R-T Axes : 016 006 -10 degrees QTc Int : 489 ms SINUS BRADYCARDIA CANNOT RULE OUT ANTERIOR INFARCT , AGE UNDETERMINED ABNORMAL ECG WHEN COMPARED WITH ECG OF 09-JUL-2018 23:34, SINUS RHYTHM HAS REPLACED ATRIAL FIBRILLATION VENT. RATE HAS DECREASED BY 53 BPM NONSPECIFIC T WAVE ABNORMALITY NO LONGER EVIDENT IN LATERAL LEADS Confirmed by KASH OSBORNE, KRISTI ([id number]) on 08/01/2018 11:57:20 AM Referred By: Confirmed By:KRISTI HEWITT MD
[2018-08-01 13:17] LABS: POTASSIUM 4.5 mmol/L (3.5-5.1)
--- NOTE | 2018-08-01 13:38 | CONSULT ---
Consult - text type - Consultation Consultation Note: Renal Consult for ART and Hyperkalemia This is a 68 year old woman with hx of CAD, HTN, Hyperlipidemia, Asthma , diastolic CHF who presented with chest pressure and dizziness and found to have possible pancreatitis and ART with hyperkalemia. Pt denies any history of CKD. Does report sporadic history of NSAID use. Denies any acute flank pain, N/V /D. Was on Lasix at home. No leg swelling, sob, AGARWAL, orthopnea. No fever or chills. PMhx: as above Allergies: NKDA Family Hx: NC Social Hx: No T/A/D ROS: as per HPI Home Medications Medication Instructions Recorded Atorvastatin Ca [Lipitor] 10 mg PO DAILY 08/04/13 Citalopram Hydrobromide [Celexa -] 20 mg PO DAILY 08/04/13 Insulin Detemir [Levemir Flexpen] 60 unit SQ BID 08/04/13 hydrOXYzine HCL [Atarax -] 25 mg PO DAILY 08/04/13 metFORMIN HCL [Glucophage] 1,000 mg PO DAILY 08/04/13 Insulin (Levemir) [Levemir Flexpen 4 units SQ DAILY 02/14/15 -] Insulin Aspart [Novolog Flexpen] 10 unit SQ AC 02/14/15 Glipizide 5 mg PO DAILY 05/01/16 Oxybutynin Chloride [Oxybutynin 15 mg PO DAILY 05/01/16 Chloride ER] Salmeterol/Fluticasone [Advair 1 inh PO BID 05/01/16 100Mcg/50Mcg -] Furosemide [Lasix -] 80 mg PO DAILY #120 tablet 07/13/18 Metoprolol Succinate [Toprol XL -] 100 mg PO BID #60 tab.sr.24h 07/13/18 Rivaroxaban [Xarelto -] 20 mg PO DAILY@1800 #90 tablet 07/13/18 Diltiazem [Cardizem -] 30 mg PO ONCE 07/31/18 Citalopram Hydrobromide [Celexa -] 10 mg PO DAILY 08/01/18 Diltiazem HCl [Cardizem LA] 120 mg PO DAILY 08/01/18 Furosemide 40 mg PO BID 08/01/18 Metoprolol Succinate 200 mg PO DAILY 08/01/18 Vital Signs Temperature 97.8 F 08/01/18 06:00 Pulse Rate 61 08/01/18 06:00 Respiratory Rate 18 08/01/18 06:00 Blood Pressure 143/67 08/01/18 06:00 O2 Sat by Pulse Oximetry (%) 97 08/01/18 03:01 Intake & Output 07/29/18 07/30/18 07/31/18 08/01/18 23:59 23:59 23:59 23:59 Intake Total 150 Output Total 800 Balance -650 Weight 117.934 kg 117.934 kg NAD awake and alert neck supple, no JVD RRR, no M/R CTA, no rales or wheeze obese, NT/ND No LE edema, clubbing or cyanosis no bladder distension CBC, BMP 08/01/18 06:15 08/01/18 12:20 Laboratory Tests 08/01/18 06:15 Sodium 134 L Potassium 5.8 H Chloride 103 Carbon Dioxide 26 Anion Gap 6 L BUN 38 H Creatinine 1.9 H Creat Clearance w eGFR 26.29 Calcium 7.8 L Phosphorus 3.8 Magnesium 2.4 Current Medications Albuterol Sulfate (Ventolin 0.083% Nebulizer Soln -) 1 amp NEB Q4H PRN PRN Reason: SHORT OF BREATH/WHEEZING Atorvastatin Calcium (Lipitor -) 10 mg PO HS [facility] Citalopram Hydrobromide (Celexa -) 20 mg PO DAILY [facility] Last Admin: 08/01/18 10:33 Dose: 20 mg Diltiazem HCl (Cardizem -) 30 mg PO DAILY [facility] Last Admin: 08/01/18 10:33 Dose: 30 mg Piperacillin Sod/Tazobactam (Sod 3.375 gm/ Dextrose) 50 mls @ 100 mls/hr IVPB Q6H-IV JING; Protocol Linezolid (Zyvox 600 Mg Premix Bag (Restricted To Id) -) 600 mg in 300 mls @ 300 mls/hr IVPB BID JING; Protocol Piperacillin Sod/Tazobactam (Sod 3.375 gm/ Dextrose) 50 mls @ 100 mls/hr IVPB Q6H-IV JING; Protocol Stop: 08/01/18 21:29 Last Admin: 08/01/18 12:30 Dose: 100 mls/hr Insulin Aspart (Novolog Vial Sliding Scale -) 0 vial SQ ACHS JING; Protocol Last Admin: 08/01/18 12:32 Dose: 6 units Metoprolol Succinate (Toprol Xl -) 100 mg PO BID [facility] Last Admin: 08/01/18 10:34 Dose: 100 mg Rivaroxaban (Xarelto -) 20 mg PO DAILY@1800 JING Fluticasone/Salmeterol (Advair 100mcg/50mcg -) 1 puff IH BID [facility] Last Admin: 08/01/18 10:33 Dose: 1 puff Solifenacin (Vesicare -) 10 mg PO DAILY [facility] Last Admin: 08/01/18 10:33 Dose: 10 mg 68 year old woman with hx of CAD, HTN, Hyperlipidemia, Asthma, diastolic CHF who presented with chest pressure and dizziness and found to have possible pancreatitis and ART with hyperkalemia #ART (baseline Cr 1) in setting of pancreatitis + volume depletion #Hyperkalemia #Pancreatitis #Hx of Diastolic HF #Hyperlipidemia #HTN Check urine studies for FeNa, FeUrea, UPCR Would start moderate IVF hydration with NS at 75cc per hour monitor volume status closely K is improved s/p medical management Change diet to low potassium diet Trend K BID Continue Abx as per primary team Hold diuretics for now on Cardizem, monitor BP Continue statin for HLD Trend renal function and electrolytes daily Thank you Trever Falcon DO
--- NOTE | 2018-08-01 13:53 | PN ---
Teaching Attending Note Name of Resident: Roby Underwood ATTENDING PHYSICIAN STATEMENT I saw and evaluated the patient. I reviewed the resident's note and discussed the case with the resident. I agree with the resident's findings and plan as documented. SUBJECTIVE: Feels okay - complains of dysuria. No fever/chills. No nausea/ vomiting. OBJECTIVE: Afberile, Hemodynamically Stable. Last Vital Signs Temp Pulse Resp BP Pulse Ox 97.8 F 61 18 143/67 97 08/01/18 06:00 08/01/18 06:00 08/01/18 06:00 08/01/18 06:00 08/01/18 03:01 HEENT - Atraumatic, Normocephalic Heart - S1, S2, RRR Lungs - decreased breath sounds Abdomen - High BMI, Soft, non-tender. Bowel Sounds normal. Extremities - no calf swelling/tenderness. Neuro - AAO x 3. Tone/Power normal all 4 extremities. Laboratory Results - last 24 hr 07/31/18 07/31/18 07/31/18 19:11 19:11 19:11 WBC 14.9 H RBC 2.99 L Hgb 8.6 L Hct 26.5 L D MCV 88.7 MCH 28.7 MCHC 32.3 RDW 15.9 H Plt Count 333 MPV 9.6 Absolute Neuts (auto) 12.4 H Neutrophils % 83.2 H D Lymphocytes % 8.3 D Monocytes % 6.8 Eosinophils % 0.8 D Basophils % 0.9 Nucleated RBC % 0 PT with INR 29.40 H INR 2.47 H PTT (Actin FS) Sodium 137 Potassium 6.4 H* Chloride 104 Carbon Dioxide 25 Anion Gap 8 BUN 38 H Creatinine 1.9 H Creat Clearance w eGFR 26.29 POC Glucometer Random Glucose 366 H* Calcium 8.0 L Phosphorus Magnesium 2.7 H Total Bilirubin 0.6 AST 405 H ALT 296 H Alkaline Phosphatase 422 H Creatine Kinase 52 Troponin I < 0.02 Total Protein 6.4 Albumin 2.9 L Lipase Urine Color Urine Appearance Urine pH Ur Specific Lyons Urine Protein Urine Glucose (UA) Urine Ketones Urine Blood Urine Nitrite Urine Bilirubin Urine Urobilinogen Ur Leukocyte Esterase Urine WBC (Auto) Urine RBC (Auto) Hyaline Casts Urine Mucus 07/31/18 08/01/18 08/01/18 21:04 01:25 06:02 WBC RBC Hgb Hct MCV MCH MCHC RDW Plt Count MPV Absolute Neuts (auto) Neutrophils % Lymphocytes % Monocytes % Eosinophils % Basophils % Nucleated RBC % PT with INR INR PTT (Actin FS) Sodium 137 Potassium 5.5 H Chloride 106 Carbon Dioxide 25 Anion Gap 6 L BUN 39 H Creatinine 2.0 H Creat Clearance w eGFR 24.78 POC Glucometer 276 Random Glucose 192 H Calcium 8.1 L Phosphorus Magnesium Total Bilirubin AST ALT Alkaline Phosphatase Creatine Kinase Troponin I Total Protein Albumin Lipase Urine Color Annabella Urine Appearance Slcloudy Urine pH 5.0 Ur Specific [place]ons 1.017 Urine Protein 1+ H Urine Glucose (UA) 1+ H Urine Ketones Negative Urine Blood Negative Urine Nitrite Negative Urine Bilirubin Negative Urine Urobilinogen 4.0 e.u/dl H Ur Leukocyte Esterase Negative Urine WBC (Auto) 4 Urine RBC (Auto) 1 Hyaline Casts 47 Urine Mucus Rare 08/01/18 08/01/18 08/01/18 06:15 06:15 06:15 WBC 15.0 H RBC 2.74 L Hgb 7.7 L Hct 23.8 L MCV 86.9 MCH 28.0 MCHC 32.2 RDW 15.8 H Plt Count 288 MPV 9.4 Absolute Neuts (auto) Neutrophils % Lymphocytes % Monocytes % Eosinophils % Basophils % Nucleated RBC % PT with INR 21.10 H INR 1.78 H PTT (Actin FS) 29.8 Sodium 134 L Potassium 5.8 H Chloride 103 Carbon Dioxide 26 Anion Gap 6 L BUN 38 H Creatinine 1.9 H Creat Clearance w eGFR 26.29 POC Glucometer Random Glucose 242 H Calcium 7.8 L Phosphorus 3.8 Magnesium 2.4 Total Bilirubin AST ALT Alkaline Phosphatase Creatine Kinase Troponin I Total Protein Albumin Lipase 63 L Urine Color Urine Appearance Urine pH Ur Specific Lyons Urine Protein Urine Glucose (UA) Urine Ketones Urine Blood Urine Nitrite Urine Bilirubin Urine Urobilinogen Ur Leukocyte Esterase Urine WBC (Auto) Urine RBC (Auto) Hyaline Casts Urine Mucus 08/01/18 08/01/18 12:10 12:20 WBC RBC Hgb Hct MCV MCH MCHC RDW Plt Count MPV Absolute Neuts (auto) Neutrophils % Lymphocytes % Monocytes % Eosinophils % Basophils % Nucleated RBC % PT with INR INR PTT (Actin FS) Sodium Potassium 4.5 Chloride Carbon Dioxide Anion Gap BUN Creatinine Creat Clearance w eGFR POC Glucometer 299 Random Glucose Calcium Phosphorus Magnesium Total Bilirubin AST ALT Alkaline Phosphatase Creatine Kinase Troponin I Total Protein Albumin Lipase Urine Color Urine Appearance Urine pH Ur Specific [place] Urine Protein Urine Glucose (UA) Urine Ketones Urine Blood Urine Nitrite Urine Bilirubin Urine Urobilinogen Ur Leukocyte Esterase Urine WBC (Auto) Urine RBC (Auto) Hyaline Casts Urine Mucus Current Medications Generic Name Dose Route Start Last Admin Trade Name Freq PRN Reason Stop Dose Admin Albuterol Sulfate 1 amp 08/01/18 02:49 Ventolin 0.083% Nebulizer Soln - NEB Q4H PRN SHORT OF BREATH/WHEEZING Atorvastatin Calcium 10 mg 08/01/18 22:00 Lipitor - PO HS JING Citalopram Hydrobromide 20 mg 08/01/18 10:00 08/01/18 10:33 Celexa - PO 20 mg DAILY JING Administration Diltiazem HCl 30 mg 08/01/18 10:00 08/01/18 10:33 Cardizem - PO 30 mg DAILY JING Administration Piperacillin Sod/Tazobactam 50 mls @ 100 mls/hr 08/02/18 03:00 Sod 3.375 gm/ Dextrose IVPB Q6H-IV JING Protocol Linezolid 600 mg in 300 mls @ 300 mls/hr 08/01/18 22:00 Zyvox 600 Mg Premix Bag (Restricted To Id) - IVPB BID JING Protocol Piperacillin Sod/Tazobactam 50 mls @ 100 mls/hr 08/01/18 03:00 08/01/18 12:30 Sod 3.375 gm/ Dextrose IVPB 08/01/18 21:29 100 mls/hr Q6H-IV JING Administration Protocol Insulin Aspart 0 vial 08/01/18 07:00 08/01/18 12:32 Novolog Vial Sliding Scale - SQ 6 units ACHS JING Administration Protocol Metoprolol Succinate 100 mg 08/01/18 10:00 08/01/18 10:34 Toprol Xl - PO 100 mg BID JING Administration Rivaroxaban 20 mg 08/01/18 18:00 Xarelto - PO DAILY@1800 JING Fluticasone/Salmeterol 1 puff 08/01/18 10:00 08/01/18 10:33 Advair 100mcg/50mcg - IH 1 puff BID JING Administration Solifenacin 10 mg 08/01/18 10:00 08/01/18 10:33 Vesicare - PO 10 mg DAILY JING Administration ASSESSMENT AND PLAN: 68 year old female with CAD, Asthma, HLD, DM 2, HTN, recurrent urinary tract infections, recently diagnosed Atrial Fibrillation, Nephrolithiasis s/p lithotripsy, OA, morbid obesity, who presents to the ER with chest pressure, palpitations, lightheadedness, generalized weakness, dysuria, frequency, hesitancy, and urgency. She was recently treated for UTI with antibiotics. In Ed she was found to have ART and hyperkalemia. 1. Atypical Chest Pain reported - resolved ECG - No acute ST-T wave changes TropI neg, will repeat. 2. Reported Syncope CT Head - chronic encephaloomalacia, old cortical infarct, no acute intracranial lesion. Echo requested. 3. UTI - on Zosyn and Xyvox awaiting Urine Cx results. 4. ART with Hyperkalemia Secondary to recently increased Lasix dose - now held. Resolved with IV hydration, Kayexalate. Nephrology consulted. 5. Elevated Transaminases, etiology unclear US abdomen - Fatty liver CT A/P - Cholangitis versus pancreatitis. Lipase low. Afebrile, Hemodynammically stable. TBil normal. AST 405, ALT 296 On Zosyn/Zyvox ID consulted. 5. Atrial Fibrillation - Continue Toprol, Cardizem, Xarelto 6. DM 2 - maintain on Novolog sliding scale. 7. Normocytic Anemia - Likely multifactorial. Anemia work-up requested. 8. HTN - Continue Toprol and Cardizem 9. HLD - Continue Statin. 10. DVT prophylaxis - Patient on Xarelto.
--- NOTE | 2018-08-01 14:19 | CON.ID ---
Consult Consult Specialty:: infectious diseases Referred by:: hospitalist Reason for Consultation:: chest pain uti - History of Present Illness Chief Complaint: chest pain History of Present Illness: 68 yo f w/ PMH CAD, athma, HLD, IDDM, HTN who comes into the ED c/p a 1 day hx of chest pressure and lightheadedness. The patient was recently admitted to [facility] on 07/08 (dc 07/13) for UTI. SHe was treated with ceftriaxone and dx w/ afib during her admission. On discharge, the patient's metoprolol was lowered from 200mg BID to 100mg BID and her Lasix was increased from 40mg daily to 80mg daily. She was also started on Xarelto. Over the past 1 week, the patient has been experiencing generalized fatigue. 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 patient then was evaluated in the er and also it seems a foleys catheter was placed which was removed when patient came to the floor currently the patient feels much better Patient also complains of right upper quadrant, RLQ and right flank pain which has been present since her last admission. - History Source History Provided By: Patient, Family Member, Medical Record Limitations to Obtaining History: Language Barrier - Alcohol/Substance Use Hx Alcohol Use: No - Smoking History Smoking history: Unknown if ever smoked Have you smoked in the past 12 months: No Aproximately how many cigarettes per day: 0 Home Medications - Allergies Allergies/Adverse Reactions: Allergies Allergy/AdvReac Type Severity Reaction Status Date / Time No Known Drug Allergies Allergy Verified 02/14/15 09:39 - Home Medications Home Medications: Ambulatory Orders Atorvastatin Ca [Lipitor] 10 mg PO DAILY 08/04/13 Citalopram Hydrobromide [Celexa -] 20 mg PO DAILY 08/04/13 Insulin Detemir [Levemir Flexpen] 60 unit SQ BID 08/04/13 hydrOXYzine HCL [Atarax -] 25 mg PO DAILY 08/04/13 metFORMIN HCL [Glucophage] 1,000 mg PO DAILY 08/04/13 Insulin (Levemir) [Levemir Flexpen -] 4 units SQ DAILY 02/14/15 Insulin Aspart [Novolog Flexpen] 10 unit SQ AC 02/14/15 Glipizide 5 mg PO DAILY 05/01/16 Oxybutynin Chloride [Oxybutynin Chloride ER] 15 mg PO DAILY 05/01/16 Salmeterol/Fluticasone [Advair 100Mcg/50Mcg -] 1 inh PO BID 05/01/16 Furosemide [Lasix -] 80 mg PO DAILY #120 tablet 07/13/18 Metoprolol Succinate [Toprol XL -] 100 mg PO BID #60 tab.sr.24h 07/13/18 Rivaroxaban [Xarelto -] 20 mg PO DAILY@1800 #90 tablet 07/13/18 Diltiazem [Cardizem -] 30 mg PO ONCE 07/31/18 Diltiazem HCl [Cardizem LA] 120 mg PO DAILY 08/01/18 Furosemide 40 mg PO BID 08/01/18 Metoprolol Succinate 200 mg PO DAILY 08/01/18 Review of Systems - Review of Systems Constitutional: reports: No Symptoms Eyes: reports: No Symptoms HENT: reports: No Symptoms Neck: reports: No Symptoms Cardiovascular: reports: Chest Pain Respiratory: reports: SOB Gastrointestinal: reports: No Symptoms Genitourinary: reports: Flank Pain Integumentary: reports: No Symptoms Neurological: reports: Dizziness Endocrine: reports: No Symptoms Hematology/Lymphatic: reports: No Symptoms Psychiatric: reports: No Symptoms Physical Exam Vital Signs: Vital Signs Temperature 97.8 F 08/01/18 06:00 Pulse Rate 82 08/01/18 12:00 Respiratory Rate 20 08/01/18 12:00 Blood Pressure 122/50 L 08/01/18 12:00 O2 Sat by Pulse Oximetry (%) 99 08/01/18 09:00 Constitutional: Yes: Well Nourished, No Distress, Calm Eyes: Yes: Conjunctiva Clear HENT: Yes: Atraumatic, Normocephalic Neck: Yes: Supple, Trachea Midline Cardiovascular: Yes: Regular Rate and Rhythm Respiratory: Yes: Regular, CTA Bilaterally Gastrointestinal: Yes: Normal Bowel Sounds, Soft Musculoskeletal: Yes: WNL Extremities: Yes: WNL Integumentary: Yes: WNL Neurological: Yes: Alert, Oriented Labs: CBC, BMP 08/01/18 06:15 08/01/18 12:20 Imaging - Results Chest X-ray: Report Reviewed, Image Reviewed Cat Scan: Report Reviewed, Image Reviewed Assessment/Plan The patient is a 68 yo f w/ PMH CAD, asthma, HLD, IDDM, HTN who comes to the ed c/o lightheadedness and gereralized weakness found to have an ART and a potassium of 6.4 weakness elevated lft hyperkalemia h/o uti dm plan i am going to just give ceftiraxone for now will see what the cx reports are hydration watch for kidney and liver function rest as per the team
--- NOTE | 2018-08-01 14:22 | PN ---
Physical Exam: SUBJECTIVE: Patient seen and examined at bedside this morning. She endorses resolution of her abdominal pain. Tolerating diet without recurrence of abdominal pain, nausea, vomiting. She denies subjective fevers, chills, shortness of breath, chest pain, palpitations. OBJECTIVE: Vital Signs Period Temp Pulse Resp BP Sys/Krishnan Pulse Ox Last 24 Hr 97.5 F-98.5 F 55-82 16-20 96-143/45-67 96-100 GENERAL: The patient is awake, alert, and fully oriented, in no acute distress. HEAD: Normal with no signs of trauma. EYES: PERRL, extraocular movements intact, sclera anicteric, conjunctiva clear. ENT: Oropharynx clear without exudates, moist mucous membranes. NECK: Supple without lymphadenopathy. LUNGS: Breath sounds equal, clear to auscultation bilaterally, no wheezes, no crackles, no accessory muscle use. HEART: Regular rate and rhythm. S1, S2 auscultated without murmur, rub or gallop. ABDOMEN: Obese. Soft, nontender to light and deep palpation X4 quadrants, nondistended. Normoactive bowel sounds x4 quadrants. No guarding, no rebound tenderness. No hepatomegally palpated or percussed. EXTREMITIES: 2+ radial, dorsalis pedis pulses b/l, warm, well-perfused. 1+ lower extremity edema b/l. NEUROLOGICAL: Cranial nerves II through XII grossly intact. Normal speech. No gross focal deficits. PSYCH: Normal mood, normal affect upon my encounter. SKIN: Warm, dry. Laboratory Results - last 24 hr 07/31/18 07/31/18 07/31/18 19:11 19:11 19:11 WBC 14.9 H RBC 2.99 L Hgb 8.6 L Hct 26.5 L D MCV 88.7 MCH 28.7 MCHC 32.3 RDW 15.9 H Plt Count 333 MPV 9.6 Absolute Neuts (auto) 12.4 H Neutrophils % 83.2 H D Lymphocytes % 8.3 D Monocytes % 6.8 Eosinophils % 0.8 D Basophils % 0.9 Nucleated RBC % 0 PT with INR 29.40 H INR 2.47 H PTT (Actin FS) Sodium 137 Potassium 6.4 H* Chloride 104 Carbon Dioxide 25 Anion Gap 8 BUN 38 H Creatinine 1.9 H Creat Clearance w eGFR 26.29 POC Glucometer Random Glucose 366 H* Calcium 8.0 L Phosphorus Magnesium 2.7 H Total Bilirubin 0.6 AST 405 H ALT 296 H Alkaline Phosphatase 422 H Creatine Kinase 52 Troponin I < 0.02 Total Protein 6.4 Albumin 2.9 L Lipase Urine Color Urine Appearance Urine pH Ur Specific [place] Urine Protein Urine Glucose (UA) Urine Ketones Urine Blood Urine Nitrite Urine Bilirubin Urine Urobilinogen Ur Leukocyte Esterase Urine WBC (Auto) Urine RBC (Auto) Hyaline Casts Urine Mucus 07/31/18 08/01/18 08/01/18 21:04 01:25 06:02 WBC RBC Hgb Hct MCV MCH MCHC RDW Plt Count MPV Absolute Neuts (auto) Neutrophils % Lymphocytes % Monocytes % Eosinophils % Basophils % Nucleated RBC % PT with INR INR PTT (Actin FS) Sodium 137 Potassium 5.5 H Chloride 106 Carbon Dioxide 25 Anion Gap 6 L BUN 39 H Creatinine 2.0 H Creat Clearance w eGFR 24.78 POC Glucometer 276 Random Glucose 192 H Calcium 8.1 L Phosphorus Magnesium Total Bilirubin AST ALT Alkaline Phosphatase Creatine Kinase Troponin I Total Protein Albumin Lipase Urine Color [place] Urine Appearance Slcloudy Urine pH 5.0 Ur Specific [place] 1.017 Urine Protein 1+ H Urine Glucose (UA) 1+ H Urine Ketones Negative Urine Blood Negative Urine Nitrite Negative Urine Bilirubin Negative Urine Urobilinogen 4.0 e.u/dl H Ur Leukocyte Esterase Negative Urine WBC (Auto) 4 Urine RBC (Auto) 1 Hyaline Casts 47 Urine Mucus Rare 08/01/18 08/01/18 08/01/18 06:15 06:15 06:15 WBC 15.0 H RBC 2.74 L Hgb 7.7 L Hct 23.8 L MCV 86.9 MCH 28.0 MCHC 32.2 RDW 15.8 H Plt Count 288 MPV 9.4 Absolute Neuts (auto) Neutrophils % Lymphocytes % Monocytes % Eosinophils % Basophils % Nucleated RBC % PT with INR 21.10 H INR 1.78 H PTT (Actin FS) 29.8 Sodium 134 L Potassium 5.8 H Chloride 103 Carbon Dioxide 26 Anion Gap 6 L BUN 38 H Creatinine 1.9 H Creat Clearance w eGFR 26.29 POC Glucometer Random Glucose 242 H Calcium 7.8 L Phosphorus 3.8 Magnesium 2.4 Total Bilirubin AST ALT Alkaline Phosphatase Creatine Kinase Troponin I Total Protein Albumin Lipase 63 L Urine Color Urine Appearance Urine pH Ur Specific [place] Urine Protein Urine Glucose (UA) Urine Ketones Urine Blood Urine Nitrite Urine Bilirubin Urine Urobilinogen Ur Leukocyte Esterase Urine WBC (Auto) Urine RBC (Auto) Hyaline Casts Urine Mucus 08/01/18 08/01/18 12:10 12:20 WBC RBC Hgb Hct MCV MCH MCHC RDW Plt Count MPV Absolute Neuts (auto) Neutrophils % Lymphocytes % Monocytes % Eosinophils % Basophils % Nucleated RBC % PT with INR INR PTT (Actin FS) Sodium Potassium 4.5 Chloride Carbon Dioxide Anion Gap BUN Creatinine Creat Clearance w eGFR POC Glucometer 299 Random Glucose Calcium Phosphorus Magnesium Total Bilirubin AST ALT Alkaline Phosphatase Creatine Kinase Troponin I Total Protein Albumin Lipase Urine Color Urine Appearance Urine pH Ur Specific [place] Urine Protein Urine Glucose (UA) Urine Ketones Urine Blood Urine Nitrite Urine Bilirubin Urine Urobilinogen Ur Leukocyte Esterase Urine WBC (Auto) Urine RBC (Auto) Hyaline Casts Urine Mucus Active Medications Generic Name Dose Route Start Last Admin Trade Name Freq PRN Reason Stop Dose Admin Albuterol Sulfate 1 amp 08/01/18 02:49 Ventolin 0.083% Nebulizer Soln - NEB Q4H PRN SHORT OF BREATH/WHEEZING Atorvastatin Calcium 10 mg 08/01/18 22:00 Lipitor - PO HS JING Citalopram Hydrobromide 20 mg 08/01/18 10:00 08/01/18 10:33 Celexa - PO 20 mg DAILY JING Administration Diltiazem HCl 30 mg 08/01/18 10:00 08/01/18 10:33 Cardizem - PO 30 mg DAILY JING Administration Piperacillin Sod/Tazobactam 50 mls @ 100 mls/hr 08/02/18 03:00 Sod 3.375 gm/ Dextrose IVPB Q6H-IV JING Protocol Linezolid 600 mg in 300 mls @ 300 mls/hr 08/01/18 22:00 Zyvox 600 Mg Premix Bag (Restricted To Id) - IVPB BID JING Protocol Piperacillin Sod/Tazobactam 50 mls @ 100 mls/hr 08/01/18 03:00 08/01/18 12:30 Sod 3.375 gm/ Dextrose IVPB 08/01/18 21:29 100 mls/hr Q6H-IV JING Administration Protocol Sodium Chloride 1,000 mls @ 75 mls/hr 08/01/18 13:45 Normal Saline - IV ASDIR [facility] Insulin Aspart 0 vial 08/01/18 07:00 08/01/18 12:32 Novolog Vial Sliding Scale - SQ 6 units ACHS [facility] Administration Protocol Metoprolol Succinate 100 mg 08/01/18 10:00 08/01/18 10:34 Toprol Xl - PO 100 mg BID JING Administration Rivaroxaban 20 mg 08/01/18 18:00 Xarelto - PO DAILY@1800 JING Fluticasone/Salmeterol 1 puff 08/01/18 10:00 08/01/18 10:33 Advair 100mcg/50mcg - IH 1 puff BID JING Administration Solifenacin 10 mg 08/01/18 10:00 08/01/18 10:33 Vesicare - PO 10 mg DAILY JING Administration ASSESSMENT/PLAN: Patient is a 68 year old female with history of hypertension, hyperlipidemia, insulin dependent diabetes mellitus, coronary artery disease, morbid obesity, asthma presents with complaint of chest pressure. Atypical chest pain, questionable syncopal episode -Patient endorses chest discomfort has fully resolved today. -EKG shows sinus bradycardia at [address]-T wave changes. -Troponin 0.02 x2 will follow. -CT head shows no acute intracranial hemorrhage, edema, mass effect, or fracture. Chronic encephalomalacia left frontal lobe noted -Cardiac ECHO -Telemetry monitoring Abdominal pain, right upper quadrant -CT abdomen, pelvis shows trace ascites, mid-abdominal inflammatory changes concerning for duodenitis, mild acute pancreatitis. -Right upper quadrant ultrasound shows mild, diffuse fatty liver infiltration. -Lipase 63 -ID consult (Dr. Seo) appreciated -Ceftriaxone 1 gram IV daily -Linezolid 600mg IV BID -Zosyn 3.375grams IV Q6H -Follow blood cultures -Follow Hepatitis serology Urinary tract infection -UA shows 1+ protein, glucose. 4WBC, 1RBC, 47 hyaline casts. -Patient currently receiving Ceftriaxone, Linezolid. -Follow urine cultures Hyperkalemia -resolved -Patient received Kayexelate, IV fluid hydration. -Follow CMP Acute kidney injury -Likely secondary to dehydration, and recently increased LAsix dose. -Holding Lasix for now. -Nephrology consult (Dr. Falcon) appreciated. Following urine studies. -IV normal saline at 75mL/ hour. Normocytic anemia -Unclear etiology. Follow reticulocytes, iron studies, B12, folate. Asthma -Albuterol nebulizer 1 amp Q5H PRN -Advair 1puff IH BID Diabetes mellitus, insulin dependent -HbA1c -Insulin sliding scale ACHS -Fingerstick blood glucose monitoring ACHS Atrial fibrillation -Cardizem 30mg PO daily -Metoprolol 100mg PO daily -Xarelto 20mg PO daily Hypertension -Patient is taking Cardizem, and Metoprolol. -Follow vital signs closely Hyperlipidemia -Lipitor 10mg PO HS FEN -IV normal saline at 75mL/ hour -Hyperkalemia. Follow CMP -Low potassium diet Prophylaxis -Xarelto 20mg PO daily Disposition -Continue care in medical- surgical floor. Visit type - Emergency Visit Emergency Visit: Yes ED Registration Date: 07/31/18 Care time: The patient presented to the Emergency Department on the above date and was hospitalized for further evaluation of their emergent condition. - New Patient This patient is new to me today: Yes Date on this admission: 08/01/18 - Critical Care Critical Care patient: No - Discharge Referral Referred to [facility] Med P.C.: No
--- NOTE | 2018-08-01 15:45 | ECHO ---
Version: 1 Name: MARIA L STANFORD Exam: Adult Echocardiogram Study Date: 08/01/2018, 2:55 PM Age: 68 Years MMode/2D Measurements & Calculations IVSd: 0.79 cm LVIDs: 3.5 cm LVIDd: 5.3 cm LVPWd: 0.81 cm Ao root diam: 2.6 cm LA dimension: 4.4 cm Doppler Measurements & Calculations MV E max rani: 163.9 cm/sec MV A max rani: 66.5 cm/sec MV E/A: 2.46 MR max P.0 mmHg Ao max P.7 mmHg LV V1 mean: 48.5 cm/sec Ao mean P.2 mmHg LV V1 mean P.03 mmHg Ao V2 max: 163.9 cm/sec PI end-d rani: 119.1 cm/sec TR max rani: 256.4 cm/sec TR max P.5 mmHg Procedure The study was technically difficult with many images being suboptimal in quality. Left Ventricle Left ventricular systolic function is grossly normal. Ejection Fraction = 50%. Regional wall motion abnormalities cannot be excluded due to limited visualization. Right Ventricle The right ventricle is not well visualized. Atria Normal left and right atrial size and function. Mitral Valve There is mild to moderate mitral valve thickening. There is no mitral valve stenosis. There is mild to moderate mitral regurgitation. Tricuspid Valve The tricuspid valve is not well visualized, but is grossly normal. There is mild tricuspid regurgita tion. Aortic Valve There is mild aortic sclerosis.;. No hemodynamically significant valvular aortic stenosis. No aortic regurgitation is present. Pulmonic Valve The pulmonic valve is not well seen, but is grossly normal. There is no pulmonic valvular stenosis. Mild pulmonic valvular regurgitation. Great Vessels The aortic root is normal size. Pericardium/Pleura Trivial pericardial effusion not hemodynamically significant. Summary Statements The study was technically difficult with many images being suboptimal in quality. Regional wall motion abnormalities cannot be excluded due to limited visualization. Left ventricular systolic function is grossly normal. Ejection Fraction = 50%. There is mild to moderate mitral valve thickening. There is mild to moderate mitral regurgitation. There is mild tricuspid regurgitation. There is mild aortic sclerosis.; MD Norman *Marlys 08/01/2018, 3:44 PM Ordering Physician: Marcel Rdz Referring Physician: MARCEL RDZ Performed By: Marni Jones
[2018-08-01] MEDS: RIVAROXABAN 20 MG TABLET PO SCH (17:24)
[2018-08-01] MEDS: SODIUM CHLORIDE 1,000 ML IV SCH (17:25)
[2018-08-01] MEDS: ATORVASTATIN CA 10 MG TABLET (FP) PO SCH (21:27)
[2018-08-01] MEDS ORDERED: LINEZOLID 600 MG PREMIX BAG 600 MG/300 ML BAG IVPB SCH (22:00)
[2018-08-02] MEDS ORDERED: PIPERACILLIN/TAZOB 3.375 GM 3.375 GM in DEXTROSE 5%-WATER - 50 ML IVPB SCH (03:00)
[2018-08-02 04:13] LABS: HEP.C VIRUS AB <0.1 s/co ratio (0.0-0.9)
[2018-08-02] MEDS: INSULIN SLIDING SCALE (NOVOLOG) 1 VIAL SQ SCH ×4 (07:13→22:36)
[2018-08-02 07:57] LABS: EOS % 3.1 % (0-4.5); HEMATOCRIT 22.5 % (32.4-45.2); HEMOGLOBIN 7.4 GM/dL (10.7-15.3); LYMPH % 15.4 % (8-40); MCH 28.3 pg (25.7-33.7); MCHC 32.8 g/dl (32.0-36.0); MEAN CELL VOLUME 86.4 fl (80-96); MEAN PLT VOLUME 8.8 fl (7.5-11.1); MONO % 8.2 % (3.8-10.2); NEUT % 72.3 % (42.8-82.8); PLATELET COUNT 282 K/MM3 (134-434); RDW 15.8 % (11.6-15.6); WHITE BLOOD COUNT 12.5 K/mm3 (4.0-10.0)
--- NOTE | 2018-08-02 08:35 | PN ---
Physical Exam: SUBJECTIVE: Patient seen and examined at bedside this morning. She denies chest pain or palpitations. Endorses diminished appetite, however is tolerating diet without abdominal pain, nausea, vomiting, or diarrhea. Last bowel movement yesterday that was soft, without tate blood. Urinating well without dysuria or hematuria. She endorses pruritic rash on right thigh that began today. Denies subjective fevers, or chills. OBJECTIVE: Vital Signs Period Temp Pulse Resp BP Sys/Krihsnan Pulse Ox Last 24 Hr 97.2 F-98.5 F 57-82 19-20 122-141/50-76 96-99 GENERAL: The patient is awake, alert, and fully oriented, in no acute distress. HEAD: Normal with no signs of trauma. EYES: PERRL, extraocular movements intact, sclera anicteric, conjunctiva clear. ENT: Oropharynx clear without exudates, moist mucous membranes. NECK: Supple without lymphadenopathy. LUNGS: Breath sounds equal, clear to auscultation bilaterally, no wheezes, no crackles, no accessory muscle use. HEART: Regular rate and rhythm. S1, S2 auscultated without murmur, rub or gallop. ABDOMEN: Obese. Soft, nontender to light and deep palpation X4 quadrants, nondistended. Normoactive bowel sounds x4 quadrants. No guarding, no rebound tenderness. No hepatomegally palpated or percussed. EXTREMITIES: 2+ radial, dorsalis pedis pulses b/l, warm, well-perfused. 1+ lower extremity edema b/l. NEUROLOGICAL: Cranial nerves II through XII grossly intact. Normal speech. No gross focal deficits. PSYCH: Normal mood, normal affect upon my encounter. SKIN: Warm, dry. Large horizontal scar noted at right upper abdominal quadrant from prior cholecystectomy. Laboratory Results - last 24 hr 08/01/18 08/01/18 08/01/18 01:25 01:25 12:10 Potassium POC Glucometer 299 Creatine Kinase Troponin I Hepatitis A IgM Ab Negative Hep Bs Antigen Negative Hep B Core Total Ab Negative Hep B Core IgM Ab Negative Hepatitis C Antibody <0.1 08/01/18 08/01/18 08/01/18 12:20 17:00 17:18 Potassium 4.5 POC Glucometer 229 Creatine Kinase 55 Troponin I < 0.02 < 0.02 Hepatitis A IgM Ab Hep Bs Antigen Hep B Core Total Ab Hep B Core IgM Ab Hepatitis C Antibody 08/01/18 08/02/18 21:07 06:54 Potassium POC Glucometer 207 203 Creatine Kinase Troponin I Hepatitis A IgM Ab Hep Bs Antigen Hep B Core Total Ab Hep B Core IgM Ab Hepatitis C Antibody Active Medications Generic Name Dose Route Start Last Admin Trade Name Freq PRN Reason Stop Dose Admin Albuterol Sulfate 1 amp 08/01/18 02:49 Ventolin 0.083% Nebulizer Soln - NEB Q4H PRN SHORT OF BREATH/WHEEZING Atorvastatin Calcium 10 mg 08/01/18 22:00 08/01/18 21:27 Lipitor - PO 10 mg HS JING Administration Citalopram Hydrobromide 20 mg 08/01/18 10:00 08/01/18 10:33 Celexa - PO 20 mg DAILY JING Administration Diltiazem HCl 30 mg 08/01/18 10:00 08/01/18 10:33 Cardizem - PO 30 mg DAILY JING Administration Sodium Chloride 1,000 mls @ 75 mls/hr 08/01/18 13:45 08/01/18 17:25 Normal Saline - IV 75 mls/hr ASDIR JING Administration Ceftriaxone Sodium 1 gm/ 50 mls @ 100 mls/hr 08/02/18 10:00 Dextrose IVPB DAILY JING Protocol Insulin Aspart 0 vial 08/01/18 07:00 08/02/18 07:13 Novolog Vial Sliding Scale - SQ 4 units ACHS JING Administration Protocol Metoprolol Succinate 100 mg 08/01/18 10:00 08/01/18 21:27 Toprol Xl - PO 100 mg BID JING Administration Rivaroxaban 20 mg 08/01/18 18:00 08/01/18 17:24 Xarelto - PO 20 mg DAILY@1800 JING Administration Fluticasone/Salmeterol 1 puff 08/01/18 10:00 08/01/18 21:33 Advair 100mcg/50mcg - IH 1 puff BID JING Administration Solifenacin 10 mg 08/01/18 10:00 08/01/18 10:33 Vesicare - PO 10 mg DAILY JING Administration ASSESSMENT/PLAN: Patient is a 68 year old female with history of hypertension, hyperlipidemia, insulin dependent diabetes mellitus, coronary artery disease, morbid obesity, asthma presents with complaint of chest pressure. Atypical chest pain, questionable syncopal episode -Patient endorses chest discomfort has fully resolved today. -EKG shows sinus bradycardia at [address]-T wave changes. -Troponin 0.02 x3 -CT head shows no acute intracranial hemorrhage, edema, mass effect, or fracture. Chronic encephalomalacia left frontal lobe noted -Cardiac ECHO shows LV systolic function grossly normal. EF 50%. Mild- moderate MR, TR -Telemetry monitoring Abdominal pain, right upper quadrant -CT abdomen, pelvis shows trace ascites, mid-abdominal inflammatory changes concerning for duodenitis, mild acute pancreatitis. -Right upper quadrant ultrasound shows mild, diffuse fatty liver infiltration. -Lipase 63 -Transaminitis downtrending. -ID consult (Dr. Payne) appreciated. -Ceftriaxone switched to Bactrim DS 1 tablet BID due to rash, and widened QTc interval (could not give Ciprofloxacin). Discussed with ID. -Benadryl 25mg PO -Blood cultures negative after 24 hours -Hepatitis A,B,C serologies negative Urinary tract infection -UA shows 1+ protein, glucose. 4WBC, 1RBC, 47 hyaline casts. -Patient currently receiving Bactrim -Urine culture growing non lactose fermenting gram negative bacilli. Follow culture sensitivities. Acute kidney injury -Likely secondary to dehydration, and recently increased Lasix dose. -Holding Lasix for now. -Nephrology consult (Dr. John) appreciated. Following urine studies. -IV normal saline at 75mL/ hour. Normocytic anemia -Unclear etiology. -Reticulocytes, -B12, Folate within normal limits. -Follow iron studies Hyperkalemia -resolved -Follow CMP Asthma -Albuterol nebulizer 1 amp Q5H PRN -Advair 1puff IH BID Diabetes mellitus, insulin dependent -Insulin sliding scale ACHS -Fingerstick blood glucose monitoring ACHS Atrial fibrillation -Cardizem 30mg PO daily -Metoprolol 100mg PO daily -Xarelto 20mg PO daily Hypertension -Patient is taking Cardizem, and Metoprolol. -Follow vital signs closely Hyperlipidemia -Lipitor 10mg PO HS FEN -IV normal saline at 75mL/ hour -Follow CMP -Low potassium diet Prophylaxis -Xarelto 20mg PO daily Disposition -Continue care in medical- surgical floor. Visit type - Emergency Visit Emergency Visit: Yes ED Registration Date: 07/31/18 Care time: The patient presented to the Emergency Department on the above date and was hospitalized for further evaluation of their emergent condition. - New Patient This patient is new to me today: No - Critical Care Critical Care patient: No - Discharge Referral [facility]erred to [facility] Med P.C.: No
[2018-08-02] MEDS ORDERED: diphenhydrAMINE HCL 25 MG CAPSULE (FP) PO ONE (09:17)
[2018-08-02] MEDS ORDERED: CEFTRIAXONE 1 GM in DEXTROSE 5%-WATER - 50 ML IVPB SCH (10:00)
--- NOTE | 2018-08-02 10:50 | PN ---
Teaching Attending Note Name of Resident: Roby Underwood ATTENDING PHYSICIAN STATEMENT I saw and evaluated the patient. I reviewed the resident's note and discussed the case with the resident. I agree with the resident's findings and plan as documented. SUBJECTIVE: Dysuria improving. No fever/chills. No nausea/vomiting. Complains of itchy rash. OBJECTIVE: Afberile, Hemodynamically Stable. Last Vital Signs Temp Pulse Resp BP Pulse Ox 97.2 F L 57 L 19 140/60 96 08/02/18 06:00 08/02/18 06:00 08/02/18 06:00 08/02/18 06:00 08/01/18 21:00 HEENT - Atraumatic, Normocephalic Heart - S1, S2, RRR Lungs - decreased breath sounds Abdomen - High BMI, Soft, non-tender. Bowel Sounds normal. Extremities - no calf swelling/tenderness. Skin - macular rash on extremities Laboratory Results - last 24 hr 08/01/18 08/01/18 08/01/18 01:25 01:25 12:10 WBC RBC Hgb Hct MCV MCH MCHC RDW Plt Count MPV Absolute Neuts (auto) Neutrophils % Lymphocytes % Monocytes % Eosinophils % Basophils % Nucleated RBC % Retic Count Potassium POC Glucometer 299 Creatine Kinase Troponin I Hepatitis A IgM Ab Negative Hep Bs Antigen Negative Hep B Core Total Ab Negative Hep B Core IgM Ab Negative Hepatitis C Antibody <0.1 08/01/18 08/01/18 08/01/18 12:20 17:00 17:18 WBC RBC Hgb Hct MCV MCH MCHC RDW Plt Count MPV Absolute Neuts (auto) Neutrophils % Lymphocytes % Monocytes % Eosinophils % Basophils % Nucleated RBC % Retic Count Potassium 4.5 POC Glucometer 229 Creatine Kinase 55 Troponin I < 0.02 < 0.02 Hepatitis A IgM Ab Hep Bs Antigen Hep B Core Total Ab Hep B Core IgM Ab Hepatitis C Antibody 08/01/18 08/02/18 08/02/18 21:07 06:20 06:20 WBC 12.5 H RBC 2.60 L Hgb 7.4 L Hct 22.5 L MCV 86.4 MCH 28.3 MCHC 32.8 RDW 15.8 H Plt Count 282 MPV 8.8 Absolute Neuts (auto) 9.0 H Neutrophils % 72.3 Lymphocytes % 15.4 D Monocytes % 8.2 Eosinophils % 3.1 D Basophils % 1.0 Nucleated RBC % 0 Retic Count 3.25 H Potassium POC Glucometer 207 Creatine Kinase Troponin I Hepatitis A IgM Ab Hep Bs Antigen Hep B Core Total Ab Hep B Core IgM Ab Hepatitis C Antibody 08/02/18 06:54 WBC RBC Hgb Hct MCV MCH MCHC RDW Plt Count MPV Absolute Neuts (auto) Neutrophils % Lymphocytes % Monocytes % Eosinophils % Basophils % Nucleated RBC % Retic Count Potassium POC Glucometer 203 Creatine Kinase Troponin I Hepatitis A IgM Ab Hep Bs Antigen Hep B Core Total Ab Hep B Core IgM Ab Hepatitis C Antibody Current Medications Generic Name Dose Route Start Last Admin Trade Name Freq PRN Reason Stop Dose Admin Albuterol Sulfate 1 amp 08/01/18 02:49 Ventolin 0.083% Nebulizer Soln - NEB Q4H PRN SHORT OF BREATH/WHEEZING Atorvastatin Calcium 10 mg 08/01/18 22:00 08/01/18 21:27 Lipitor - PO 10 mg HS JING Administration Citalopram Hydrobromide 20 mg 08/01/18 10:00 08/01/18 10:33 Celexa - PO 20 mg DAILY JING Administration Diltiazem HCl 30 mg 08/01/18 10:00 08/01/18 10:33 Cardizem - PO 30 mg DAILY JING Administration Sodium Chloride 1,000 mls @ 75 mls/hr 08/01/18 13:45 08/01/18 17:25 Normal Saline - IV 75 mls/hr ASDIR JING Administration Insulin Aspart 0 vial 08/01/18 07:00 08/02/18 07:13 Novolog Vial Sliding Scale - SQ 4 units ACHS JING Administration Protocol Metoprolol Succinate 100 mg 08/01/18 10:00 08/01/18 21:27 Toprol Xl - PO 100 mg BID JING Administration Rivaroxaban 20 mg 08/01/18 18:00 08/01/18 17:24 Xarelto - PO 20 mg DAILY@1800 JING Administration Fluticasone/Salmeterol 1 puff 08/01/18 10:00 08/01/18 21:33 Advair 100mcg/50mcg - IH 1 puff BID JING Administration Solifenacin 10 mg 08/01/18 10:00 08/01/18 10:33 Vesicare - PO 10 mg DAILY JING Administration ASSESSMENT AND PLAN: 68 year old female with CAD, Asthma, HLD, DM 2, HTN, recurrent urinary tract infections, recently diagnosed Atrial Fibrillation, Nephrolithiasis s/p lithotripsy, OA, morbid obesity, who presents to the ER with chest pressure, palpitations, lightheadedness, generalized weakness, dysuria, frequency, hesitancy, and urgency. She was recently treated for UTI with antibiotics. In ED , she was found to have ART and hyperkalemia. 1. Atypical Chest Pain reported - resolved ECG - No acute ST-T wave changes TropI neg x 2. 2. Reported Syncope CT Head - chronic encephaloomalacia, old cortical infarct, no acute intracranial lesion. Echo - normal EF. 3. UTI - Initially given Zosyn/Xyvox, switched to Ceftriaxone, now with drug rash. Will transition from Ceftriaxone to Ciprofloxacin, and give Benadryl. Leukocytosis resolving. Urine Cx pending. 4. ART with Hyperkalemia Secondary to recently increased Lasix dose - now held. Resolving with IV hydration. Awaiting today's labs. Nephrology consulted. 5. Elevated Transaminases, etiology unclear US abdomen - Fatty liver CT A/P - Duodenitis +/- Pancreatitis. Lipase 63 Afebrile, Hemodynammically stable. TBil normal. AST 405, ALT 296 - awaiting repeat LFTs. If persistently elevated, will need further work up. 5. Atrial Fibrillation - Continue Toprol, Cardizem, Xarelto 6. DM 2 - maintain on Novolog sliding scale. 7. Normocytic Anemia - Likely multifactorial. Anemia work-up pending. 8. HTN - Continue Toprol and Cardizem 9. HLD - Continue Statin. 10. Overractive Bladder - continue Vesicare. 11. DVT prophylaxis - Patient on Xarelto.
[2018-08-02 12:25] LABS: ALBUMIN 2.8 g/dl (3.4-5.0); ALK PHOS 284 U/L (45-117); ANION GAP 8 MMOL/L (8-16); BILIRUBIN,TOTAL 0.6 mg/dL (0.2-1); BLOOD UREA NITROGEN 30 mg/dL (7-18); CALCIUM 8.2 mg/dL (8.5-10.1); CHLORIDE 105 mmol/L (98-107); CO2 26 mmol/L (21-32); CREATININE 1.5 mg/dL (0.55-1.3); GLUCOSE,RANDOM 176 mg/dL (74-106); MAGNESIUM 2.3 mg/dL (1.8-2.4); PHOSPHOROUS 3.3 mg/dL (2.5-4.9); SGOT/AST 53 U/L (15-37); SGPT/ALT 164 U/L (13-61); SODIUM 139 mmol/L (136-145); TOT PROT 6.1 g/dl (6.4-8.2)
[2018-08-02] MEDS: SOLIFENACIN SUCCINATE 5 MG TAB (FP) PO SCH (12:40)
[2018-08-02] MEDS: dilTIAZem HCL 30 MG TABLET (FP) PO SCH (12:41)
[2018-08-02] MEDS: FLUTICASONE/SALMETEROL 100 MCG/50 MCG DISKUS IH SCH ×2 (12:41→21:47)
[2018-08-02] MEDS: CITALOPRAM HYDROBROMIDE 20 MG TABLET (FP) PO SCH (12:41)
--- NOTE | 2018-08-02 12:55 | PN ---
Progress Note, Physician History of Present Illness: Pt seen and examined, events noted. Ceftriaxone switched to Cipro due to reported rash. Currently pt states she feels weak and has generalized itching but no other specific complaints. - Current Medication List Current Medications: Active Medications Albuterol Sulfate (Ventolin 0.083% Nebulizer Soln -) 1 amp NEB Q4H PRN PRN Reason: SHORT OF BREATH/WHEEZING Atorvastatin Calcium (Lipitor -) 10 mg PO HS [facility] Last Admin: 08/01/18 21:27 Dose: 10 mg Ciprofloxacin (Cipro (Restricted To Id)) 500 mg PO BID [facility] Citalopram Hydrobromide (Celexa -) 20 mg PO DAILY [facility] Last Admin: 08/02/18 12:41 Dose: 20 mg Diltiazem HCl (Cardizem -) 30 mg PO DAILY [facility] Last Admin: 08/02/18 12:41 Dose: 30 mg Sodium Chloride (Normal Saline -) 1,000 mls @ 75 mls/hr IV ASDIR [facility] Last Admin: 08/01/18 17:25 Dose: 75 mls/hr Insulin Aspart (Novolog Vial Sliding Scale -) 0 vial SQ ACHS [facility]; Protocol Last Admin: 08/02/18 07:13 Dose: 4 units Metoprolol Succinate (Toprol Xl -) 100 mg PO BID [facility] Last Admin: 08/02/18 12:41 Dose: 100 mg Rivaroxaban (Xarelto -) 20 mg PO DAILY@1800 [facility] Last Admin: 08/01/18 17:24 Dose: 20 mg Fluticasone/Salmeterol (Advair 100mcg/50mcg -) 1 puff IH BID [facility] Last Admin: 08/02/18 12:41 Dose: 1 puff Solifenacin (Vesicare -) 10 mg PO DAILY [facility] Last Admin: 08/02/18 12:40 Dose: 10 mg - Objective Vital Signs: Vital Signs Temperature 97.2 F L 08/02/18 06:00 Pulse Rate 57 L 08/02/18 06:00 Respiratory Rate 08/02/18 06:00 Blood Pressure 140/60 08/02/18 06:00 O2 Sat by Pulse Oximetry (%) 96 08/01/18 21:00 Constitutional: Yes: No Distress, Calm Eyes: Yes: Conjunctiva Clear Cardiovascular: Yes: Regular Rate and Rhythm Respiratory: Yes: Regular Gastrointestinal: Yes: Normal Bowel Sounds, Soft, Abdomen, Obese Genitourinary: Yes: WNL Musculoskeletal: Yes: WNL Extremities: Yes: WNL Integumentary: Yes: WNL Neurological: Yes: Alert Labs: CBC, BMP 08/02/18 06:20 08/02/18 06:20 INR, PTT INR 1.78 (0.83-1.09) H 08/01/18 06:15 Laboratory Results - last 24 hr 08/01/18 08/01/18 08/01/18 01:25 01:25 12:20 WBC RBC Hgb Hct MCV MCH MCHC RDW Plt Count MPV Absolute Neuts (auto) Neutrophils % Lymphocytes % Monocytes % Eosinophils % Basophils % Nucleated RBC % Retic Count Sodium Potassium 4.5 Chloride Carbon Dioxide Anion Gap BUN Creatinine Creat Clearance w eGFR POC Glucometer Random Glucose Calcium Phosphorus Magnesium Ferritin Total Bilirubin AST ALT Alkaline Phosphatase Creatine Kinase 55 Troponin I < 0.02 Total Protein Albumin Vitamin B12 Serum Folate Hepatitis A IgM Ab Negative Hep Bs Antigen Negative Hep B Core Total Ab Negative Hep B Core IgM Ab Negative Hepatitis C Antibody <0.1 08/01/18 08/01/18 08/01/18 17:00 17:18 21:07 WBC RBC Hgb Hct MCV MCH MCHC RDW Plt Count MPV Absolute Neuts (auto) Neutrophils % Lymphocytes % Monocytes % Eosinophils % Basophils % Nucleated RBC % Retic Count Sodium Potassium Chloride Carbon Dioxide Anion Gap BUN Creatinine Creat Clearance w eGFR POC Glucometer 229 207 Random Glucose Calcium Phosphorus Magnesium Ferritin Total Bilirubin AST ALT Alkaline Phosphatase Creatine Kinase Troponin I < 0.02 Total Protein Albumin Vitamin B12 Serum Folate Hepatitis A IgM Ab Hep Bs Antigen Hep B Core Total Ab Hep B Core IgM Ab Hepatitis C Antibody 08/02/18 08/02/18 08/02/18 06:20 06:20 06:20 WBC 12.5 H RBC 2.60 L Hgb 7.4 L Hct 22.5 L MCV 86.4 MCH 28.3 MCHC 32.8 RDW 15.8 H Plt Count 282 MPV 8.8 Absolute Neuts (auto) 9.0 H Neutrophils % 72.3 Lymphocytes % 15.4 D Monocytes % 8.2 Eosinophils % 3.1 D Basophils % 1.0 Nucleated RBC % 0 Retic Count 3.25 H Sodium 139 Potassium 4.0 Chloride 105 Carbon Dioxide 26 Anion Gap 8 BUN 30 H Creatinine 1.5 H Creat Clearance w eGFR 34.53 POC Glucometer Random Glucose 176 H Calcium 8.2 L Phosphorus 3.3 Magnesium 2.3 Ferritin 26.8 Total Bilirubin 0.6 AST 53 H ALT 164 H Alkaline Phosphatase 284 H Creatine Kinase Troponin I Total Protein 6.1 L Albumin 2.8 L Vitamin B12 516 Serum Folate 13 Hepatitis A IgM Ab Hep Bs Antigen Hep B Core Total Ab Hep B Core IgM Ab Hepatitis C Antibody 08/02/18 08/02/18 06:54 12:28 WBC RBC Hgb Hct MCV MCH MCHC RDW Plt Count MPV Absolute Neuts (auto) Neutrophils % Lymphocytes % Monocytes % Eosinophils % Basophils % Nucleated RBC % Retic Count Sodium Potassium Chloride Carbon Dioxide Anion Gap BUN Creatinine Creat Clearance w eGFR POC Glucometer 203 193 Random Glucose Calcium Phosphorus Magnesium Ferritin Total Bilirubin AST ALT Alkaline Phosphatase Creatine Kinase Troponin I Total Protein Albumin Vitamin B12 Serum Folate Hepatitis A IgM Ab Hep Bs Antigen Hep B Core Total Ab Hep B Core IgM Ab Hepatitis C Antibody Microbiology 07/31/18 21:04 Urine - Urine - Catheterized Urine Culture - Preliminary Non Lactose Fermenting Gnb 08/01/18 01:25 Blood - Peripheral Venous Blood Culture - Preliminary NO GROWTH OBTAINED AFTER 24 HOURS, INCUBATION TO CONTINUE FOR 4 DAYS. 08/01/18 01:25 Blood - Peripheral Venous Blood Culture - Preliminary NO GROWTH OBTAINED AFTER 24 HOURS, INCUBATION TO CONTINUE FOR 4 DAYS. - ....Imaging Chest X-ray: Report Reviewed Problem List - Problems (1) Acute kidney injury Code(s): N17.9 - ACUTE KIDNEY FAILURE, UNSPECIFIED (2) Atrial fibrillation with RVR Code(s): I48.91 - UNSPECIFIED ATRIAL FIBRILLATION (3) Elevated liver enzymes Code(s): R74.8 - ABNORMAL LEVELS OF OTHER SERUM ENZYMES (4) Hyperkalemia Code(s): E87.5 - HYPERKALEMIA (5) Leukocytosis Code(s): D72.829 - ELEVATED WHITE BLOOD CELL COUNT, UNSPECIFIED (6) Abdominal pain Code(s): R10.9 - UNSPECIFIED ABDOMINAL PAIN (7) Urinary tract infection Code(s): N39.0 - URINARY TRACT INFECTION, SITE NOT SPECIFIED Assessment/Plan Leukocytosis UTI Previous UTI- treated ART Hx of nephrolithiasis DM AFIB CAD Elevated LFTs ? Duodenitis -- labs and imaging results reviewed -- rash reported, Ceftriaxone switched to Cipro -- follow up Urine culture isolates -- wbc trending down, afebrile -- monitor LFT trend, f/u hepatitis panel continue monitor
[2018-08-02] MEDS ORDERED: CIPROFLOXACIN 500 MG TABLET (RESTRICTED TO ID) PO SCH (13:45)
[2018-08-02] MEDS: SODIUM CHLORIDE 1,000 ML IV SCH (13:55)
--- NOTE | 2018-08-02 16:04 | PN ---
Progress Note, Physician Chief Complaint: The patient seen in her room. Seems comfortable. No specific complaints. History of Present Illness: 68 year old woman with hx of CAD, HTN, Hyperlipidemia, Asthma, diastolic CHF who presented with chest pressure and dizziness and found to have possible pancreatitis and ART with hyperkalemia - Current Medication List Current Medications: Active Medications Albuterol Sulfate (Ventolin 0.083% Nebulizer Soln -) 1 amp NEB Q4H PRN PRN Reason: SHORT OF BREATH/WHEEZING Atorvastatin Calcium (Lipitor -) 10 mg PO HS [facility] Last Admin: 08/01/18 21:27 Dose: 10 mg Citalopram Hydrobromide (Celexa -) 20 mg PO DAILY [facility] Last Admin: 08/02/18 12:41 Dose: 20 mg Diltiazem HCl (Cardizem -) 30 mg PO DAILY [facility] Last Admin: 08/02/18 12:41 Dose: 30 mg Sodium Chloride (Normal Saline -) 1,000 mls @ 75 mls/hr IV ASDIR [facility] Last Admin: 08/02/18 13:55 Dose: Not Given Insulin Aspart (Novolog Vial Sliding Scale -) 0 vial SQ ACHS [facility]; Protocol Last Admin: 08/02/18 13:55 Dose: 2 units Metoprolol Succinate (Toprol Xl -) 100 mg PO BID [facility] Last Admin: 08/02/18 12:41 Dose: 100 mg Rivaroxaban (Xarelto -) 20 mg PO DAILY@1800 [facility] Last Admin: 08/01/18 17:24 Dose: 20 mg Fluticasone/Salmeterol (Advair 100mcg/50mcg -) 1 puff IH BID [facility] Last Admin: 08/02/18 12:41 Dose: 1 puff Solifenacin (Vesicare -) 10 mg PO DAILY [facility] Last Admin: 08/02/18 12:40 Dose: 10 mg Trimethoprim/Sulfamethoxazole (Bactrim Ds -) 1 each PO BID [facility] - Objective Vital Signs: Vital Signs Temperature 98.1 F 08/02/18 14:00 Pulse Rate 53 L 08/02/18 14:00 Respiratory Rate 08/02/18 06:00 Blood Pressure 141/55 L 08/02/18 14:00 O2 Sat by Pulse Oximetry (%) 96 08/01/18 21:00 Constitutional: Yes: Well Nourished, Calm Eyes: Yes: Conjunctiva Clear Neck: Yes: Trachea Midline Cardiovascular: Yes: Regular Rate and Rhythm, S1, S2 Respiratory: Yes: CTA Bilaterally, Diminished Gastrointestinal: Yes: Normal Bowel Sounds, Soft Labs: CBC, BMP 08/02/18 06:20 08/02/18 06:20 INR, PTT INR 1.78 (0.83-1.09) H 08/01/18 06:15 Assessment/Plan 68 year old woman with hx of CAD, HTN, Hyperlipidemia, Asthma, diastolic CHF who presented with chest pressure and dizziness and found to have possible pancreatitis and ART with hyperkalemia #ART ... Renal functions slowly improving. #Hyperkalemia. Serum K in normal range. #Pancreatitis #Hx of Diastolic HF #Hyperlipidemia #HTN... Blood pressure in acceptable range. Will continue to trend the renal/ electrolyte profile. Lucie Laws MD
[2018-08-02] MEDS: SULFAMETHOXAZOLE/TRIMETHOPRIM 800MG/160MG D.S. TABLET PO SCH ×2 (18:34→21:47)
[2018-08-02] MEDS: RIVAROXABAN 20 MG TABLET PO SCH (18:34)
[2018-08-02] MEDS: ATORVASTATIN CA 10 MG TABLET (FP) PO SCH (21:47)
[2018-08-03] MEDS ORDERED: diphenhydrAMINE HCL 25 MG CAPSULE (FP) PO ONE ×2 (00:30→10:00)
[2018-08-03] MEDS ORDERED: MORPHINE SULFATE 2 MG/ML VIAL IVPUSH ONE (04:00)
[2018-08-03] MEDS: INSULIN SLIDING SCALE (NOVOLOG) 1 VIAL SQ SCH ×2 (06:52→11:58)
[2018-08-03 07:48] LABS: HEMATOCRIT 23.7 % (32.4-45.2); HEMOGLOBIN 7.5 GM/dL (10.7-15.3); MCH 27.7 pg (25.7-33.7); MCHC 31.8 g/dl (32.0-36.0); MEAN CELL VOLUME 87.1 fl (80-96); MEAN PLT VOLUME 9.1 fl (7.5-11.1); PLATELET COUNT 291 K/MM3 (134-434); RBC 2.72 M/mm3 (3.60-5.2); RDW 15.8 % (11.6-15.6); WHITE BLOOD COUNT 12.1 K/mm3 (4.0-10.0)
[2018-08-03 08:21] LABS: ALBUMIN 2.7 g/dl (3.4-5.0); ALK PHOS 251 U/L (45-117); ANION GAP 8 MMOL/L (8-16); BILIRUBIN,TOTAL 0.5 mg/dL (0.2-1); BLOOD UREA NITROGEN 22 mg/dL (7-18); CALCIUM 8.3 mg/dL (8.5-10.1); CHLORIDE 107 mmol/L (98-107); CO2 27 mmol/L (21-32); CREATININE 1.1 mg/dL (0.55-1.3); GLUCOSE,RANDOM 150 mg/dL (74-106); POTASSIUM 3.9 mmol/L (3.5-5.1); SGOT/AST 27 U/L (15-37); SGPT/ALT 111 U/L (13-61); SODIUM 142 mmol/L (136-145); TOT PROT 5.9 g/dl (6.4-8.2)
[2018-08-03] MEDS: SULFAMETHOXAZOLE/TRIMETHOPRIM 800MG/160MG D.S. TABLET PO SCH (09:40)
[2018-08-03] MEDS: CITALOPRAM HYDROBROMIDE 20 MG TABLET (FP) PO SCH (09:40)
[2018-08-03] MEDS: dilTIAZem HCL 30 MG TABLET (FP) PO SCH (09:40)
[2018-08-03] MEDS: SOLIFENACIN SUCCINATE 5 MG TAB (FP) PO SCH (09:40)
[2018-08-03] MEDS: FLUTICASONE/SALMETEROL 100 MCG/50 MCG DISKUS IH SCH (09:41)
[2018-08-03 10:18] VITALS: BP 116/82; PULSE 52; TEMP 97
--- NOTE | 2018-08-03 12:42 | PN ---
Progress Note, Physician Chief Complaint: The patient seen and examined in her room. Seems comfortable. No specific complaints. History of Present Illness: 68 year old woman with hx of CAD, HTN, Hyperlipidemia, Asthma, diastolic CHF who presented with chest pressure and dizziness and found to have possible pancreatitis and ART with hyperkalemia. The Renal dysfunction has resolved significantly. - Current Medication List Current Medications: Active Medications Albuterol Sulfate (Ventolin 0.083% Nebulizer Soln -) 1 amp NEB Q4H PRN PRN Reason: SHORT OF BREATH/WHEEZING Atorvastatin Calcium (Lipitor -) 10 mg PO HS [facility] Last Admin: 08/02/18 21:47 Dose: 10 mg Citalopram Hydrobromide (Celexa -) 20 mg PO DAILY [facility] Last Admin: 08/03/18 09:40 Dose: 20 mg Diltiazem HCl (Cardizem -) 30 mg PO DAILY [facility] Last Admin: 08/03/18 09:40 Dose: 30 mg Sodium Chloride (Normal Saline -) 1,000 mls @ 75 mls/hr IV ASDIR [facility] Last Admin: 08/02/18 13:55 Dose: Not Given Insulin Aspart (Novolog Vial Sliding Scale -) 0 vial SQ ACHS [facility]; Protocol Last Admin: 08/03/18 11:58 Dose: Not Given Metoprolol Succinate (Toprol Xl -) 100 mg PO BID [facility] Last Admin: 08/03/18 09:44 Dose: Not Given Rivaroxaban (Xarelto -) 20 mg PO DAILY@1800 [facility] Last Admin: 08/02/18 18:34 Dose: 20 mg Fluticasone/Salmeterol (Advair 100mcg/50mcg -) 1 puff IH BID [facility] Last Admin: 08/03/18 09:41 Dose: 1 puff Solifenacin (Vesicare -) 10 mg PO DAILY [facility] Last Admin: 08/03/18 09:40 Dose: 10 mg Trimethoprim/Sulfamethoxazole (Bactrim Ds -) 1 each PO BID [facility] Last Admin: 08/03/18 09:40 Dose: 1 each - Objective Vital Signs: Vital Signs Temperature 97 F L 08/03/18 10:00 Pulse Rate 52 L 08/03/18 10:00 Respiratory Rate 20 08/03/18 10:00 Blood Pressure 116/82 08/03/18 10:00 O2 Sat by Pulse Oximetry (%) 98 08/03/18 09:00 Constitutional: Yes: No Distress, Calm Eyes: Yes: Conjunctiva Clear HENT: Yes: Normocephalic Neck: Yes: Trachea Midline Cardiovascular: Yes: Pulse Irregular, S1, S2 Respiratory: Yes: CTA Bilaterally, Diminished Gastrointestinal: Yes: Normal Bowel Sounds, Soft Genitourinary: No: CVA Tenderness - Left, CVA Tenderness - Right Edema: No Labs: CBC, BMP 08/03/18 06:40 08/03/18 06:40 INR, PTT INR 1.78 (0.83-1.09) H 08/01/18 06:15 Assessment/Plan 68 year old woman with hx of CAD, HTN, Hyperlipidemia, Asthma, diastolic CHF who presented with chest pressure and dizziness and found to have possible pancreatitis and ART with hyperkalemia #ART ... Renal functions almost at her baseline. #Hyperkalemia. Serum K in normal range. #Pancreatitis #Hx of Diastolic HF #Hyperlipidemia #HTN... Blood pressure in acceptable range. No specific recommendations at this point. Will continue to trend the renal/ electrolyte profile. Lucie Laws MD
--- NOTE | 2018-08-03 15:12 | DS ---
Physical Exam: SUBJECTIVE: Dysuria improved. No fever/chills. No nausea/vomiting. OBJECTIVE: Afebrile, Hemodynamically Stable. Last Vital Signs Temp Pulse Resp BP Pulse Ox 97 F L 52 L 20 116/82 98 08/03/18 10:00 08/03/18 10:00 08/03/18 10:00 08/03/18 10:00 08/03/18 09:00 HEENT - Atraumatic, Normocephalic Heart - S1, S2, RRR Lungs - decreased breath sounds Abdomen - High BMI, Soft, non-tender. Bowel Sounds normal. Extremities - no calf swelling/tenderness. Skin - macular rash on extremities, improving Laboratory Results - last 24 hr 08/02/18 08/03/18 08/03/18 16:35 06:40 06:40 WBC 12.1 H RBC 2.72 L Hgb 7.5 L Hct 23.7 L MCV 87.1 MCH 27.7 MCHC 31.8 L RDW 15.8 H Plt Count 291 MPV 9.1 Sodium 142 Potassium 3.9 Chloride 107 Carbon Dioxide 27 Anion Gap 8 BUN 22 H Creatinine 1.1 Creat Clearance w eGFR 49.39 POC Glucometer 199 Random Glucose 150 H Calcium 8.3 L Total Bilirubin 0.5 AST 27 ALT 111 H Alkaline Phosphatase 251 H Total Protein 5.9 L Albumin 2.7 L 08/03/18 08/03/18 06:46 11:57 WBC RBC Hgb Hct MCV MCH MCHC RDW Plt Count MPV Sodium Potassium Chloride Carbon Dioxide Anion Gap BUN Creatinine Creat Clearance w eGFR POC Glucometer 171 152 Random Glucose Calcium Total Bilirubin AST ALT Alkaline Phosphatase Total Protein Albumin Date of Admission:07/31/18 Date of Discharge: 08/03/18 Minutes to complete discharge: 40 Discharge Summary Reason For Visit: ACUTE KIDNEY INJURY HYPERKALEMIA Current Active Problems Atrial fibrillation with RVR (Acute) Leukocytosis (Acute) Hyperkalemia (Acute) Acute kidney injury (Acute) Elevated liver enzymes (Acute) Hospital Course: 68 year old female with CAD, Asthma, HLD, DM 2, HTN, recurrent urinary tract infections, recently diagnosed Atrial Fibrillation, Nephrolithiasis s/p lithotripsy, OA, morbid obesity, who presents to the ER with chest pressure, palpitations, lightheadedness, generalized weakness, dysuria, frequency, hesitancy, and urgency. In ED, she was found to have ART and hyperkalemia. Urine Culture was positive for Ecoli and she was initially treated Zosymn, transitioned to Ceftriaxone. However, she developed an itchy rash and her cephalosporin was switched to Bactrim. She has remained afebrile, hemodynamically stable with resolution of her symptoms. She was noted to have prolonged QTc and was advised to follow with her PCP for down titration of her Citalopram. 1. Atypical Chest Pain reported - resolved ECG - No acute ST-T wave changes TropI neg x 2. If any further CP, advised to present to ED. Advised to see PCP for further work-up as out-patient. 2. Reported Pre-/Syncope, likely postural due to dehydration CT Head - chronic encephalomalacia, old cortical infarct, no acute intracranial lesion. Echo - normal EF. No further episodes. 3. UTI - UCx - Ecoli. Initially given Zosyn/Xyvox, switched to Ceftriaxone, with which she developed a drug rash. Abx was then changed to Bactrim. To complete an additional 4 days on discharge for 7 days Abx total. Leukocytosis resolving. Afebrile/Hemodynamically Stable. 4. ART with Hyperkalemia Secondary to recently increased Lasix dose ART Resolved with IV hydration. Will resume Lasix at prior dosing of 40mg BID. 5. Elevated Transaminases, etiology unclear US abdomen - Fatty liver CT A/P - Duodenitis +/- Pancreatitis. Lipase 63 TBil normal. AST 405, ALT 296 - down to 27 and 111. No abdominal pain or tenderness. Recommend out-patient LFT check in 2 weeks. 5. Atrial Fibrillation - Continue Toprol, Cardizem, Xarelto. 6. DM 2 - resume home Insulin regimen. 7. Normocytic Anemia - Likely multifactorial - CANDIDA and Chronic Disease. Ferritin low - will supplement. Further work-up as out-patient. 8. HTN - Continue Toprol XL and Cardizem. 9. HLD - Continue Statin. 10. Overactive Bladder - continue Vesicare. 11. DVT prophylaxis - Patient on Xarelto. Condition: Good - Instructions Diet, Activity, Other Instructions: You were admitted for Urinary Tract Infection. Please complete 4 additional days of Bactrim for UTI and follow with PCP. Please consult your PCP regarding down-titrating Citalopram given prolonged QTc interval. Referrals: Celestine Lang MD [Primary Care Provider] - Disposition: HOME - Home Medications Comprehensive Discharge Medication List: Ambulatory Orders Atorvastatin Ca [Lipitor] 10 mg PO DAILY 08/04/13 Citalopram Hydrobromide [Celexa -] 20 mg PO DAILY 08/04/13 Insulin Detemir [Levemir Flexpen] 60 unit SQ BID 08/04/13 hydrOXYzine HCL [Atarax -] 25 mg PO DAILY 08/04/13 metFORMIN HCL [Glucophage] 1,000 mg PO DAILY 08/04/13 Insulin Aspart [Novolog Flexpen] 10 unit SQ AC 02/14/15 Glipizide 5 mg PO DAILY 05/01/16 Oxybutynin Chloride [Oxybutynin Chloride ER] 15 mg PO DAILY 05/01/16 Salmeterol/Fluticasone [Advair 100Mcg/50Mcg -] 1 inh PO BID 05/01/16 Rivaroxaban [Xarelto -] 20 mg PO DAILY@1800 #90 tablet 07/13/18 Diltiazem [Cardizem -] 30 mg PO ONCE 07/31/18 Diltiazem HCl [Cardizem LA] 120 mg PO DAILY 08/01/18 Furosemide 40 mg PO BID 08/01/18 Metoprolol Succinate 200 mg PO DAILY 08/01/18 Sulfamethoxazole/Trimethoprim [Bactrim DS -] 1 each PO BID 4 Days #8 tablet 09/16 This patient is new to me today: No Emergency Visit: Yes ED Registration Date: 07/31/18 Care time: The patient presented to the Emergency Department on the above date and was hospitalized for further evaluation of their emergent condition. Critical Care patient: No - Discharge Referral Referred to [facility] Med P.C.: No
--- NOTE | 2018-08-03 15:35 | EKG ---
Test Reason : Blood Pressure : / mmHG Vent. Rate : 050 BPM Atrial Rate : 050 BPM P-R Int : 148 ms QRS Dur : 090 ms QT Int : 542 ms P-R-T Axes : 049 -03 -19 degrees QTc Int : 494 ms SINUS BRADYCARDIA WITH PREMATURE ATRIAL COMPLEXES PROLONGED QT ABNORMAL ECG WHEN COMPARED WITH ECG OF 31-JUL-2018 18:17, PREMATURE ATRIAL COMPLEXES ARE NOW PRESENT Confirmed by LINUS CHAPA MD [id number]) on 08/03/2018 3:35:07 PM Referred By: Eber CLAIRE Confirmed By:LINUS CHAPA MD
[2018-08-04 06:09] LABS: SERUM IRON SATURATION 6 % (15-55); TOTAL IRON BINDING CAPACITY 308 ug/dL (250-450); UIBC 290 ug/dL (118-369)
== END 2018-08-03 15:59 | disposition home or self-care (01) | DRG 682 ==
LOC: JER 17:58 → JERBED 21:34 → J4W 08-01 02:19
PROVIDERS: ADMIT Internal Medicine
DX: N17.9 Acute kidney failure, unspecified (principal); K85.90 Acute pancreatitis without necrosis or infection, unspecified; Z68.41 Body mass index [BMI] 40.0-44.9, adult; E46 Unspecified protein-calorie malnutrition; N39.0 Urinary tract infection, site not specified; I50.30 Unspecified diastolic (congestive) heart failure; I25.10 Atherosclerotic heart disease of native coronary artery without angina pectoris; E11.9 Type 2 diabetes mellitus without complications; E87.5 Hyperkalemia; I48.91 Unspecified atrial fibrillation; D72.829 Elevated white blood cell count, unspecified; E11.65 Type 2 diabetes mellitus with hyperglycemia; K29.80 Duodenitis without bleeding; E78.5 Hyperlipidemia, unspecified; E66.01 Morbid (severe) obesity due to excess calories; R07.89 Other chest pain; R55 Syncope and collapse; E86.0 Dehydration; B96.20 Unspecified Escherichia coli [E. coli] as the cause of diseases classified elsewhere; R74.0 Nonspecific elevation of levels of transaminase and lactic acid dehydrogenase [LDH]; D64.9 Anemia, unspecified; N32.81 Overactive bladder; I11.0 Hypertensive heart disease with heart failure; R74.8 Abnormal levels of other serum enzymes; R10.11 Right upper quadrant pain; Z79.4 Long term (current) use of insulin
CPT/HCPCS: 36415; 70450-TC; 71045-TC-FY; 74176-TC; 76705-TC; 80048; 80053; 80074; 81003; 81015; 82550; 82607; 82728; 82746; 82962; 83540; 83550; 83690; 83735; 84100; 84132; 84484; 85025; 85027; 85044; 85610; 85730; 86704; 87040; 87086; 87186; 93005; 93010; 93306-TC; 99285-25; J7030

== ENCOUNTER 2018-09-03 11:30 | Emergency (ER) | payer OTHER ==
[2018-09-03 11:40] VITALS: TEMP 99; BMI 44.2
[2018-09-03 13:49] LABS: BASO % 1.5 % (0-2.0); EOS % 5.2 % (0-4.5); HEMATOCRIT 25.7 % (32.4-45.2); HEMOGLOBIN 8.4 GM/dL (10.7-15.3); LYMPH % 17.3 % (8-40); MCH 26.4 pg (25.7-33.7); MCHC 32.6 g/dl (32.0-36.0); MEAN CELL VOLUME 80.9 fl (80-96); MEAN PLT VOLUME 8.5 fl (7.5-11.1); MONO % 7.3 % (3.8-10.2); NEUT % 68.7 % (42.8-82.8); PLATELET COUNT 354 K/MM3 (134-434); RBC 3.18 M/mm3 (3.60-5.2); RDW 16.8 % (11.6-15.6); WHITE BLOOD COUNT 10.3 K/mm3 (4.0-10.0)
--- NOTE | 2018-09-03 13:59 | PDOC ---
History of Present Illness - General Chief Complaint: Revisit, Lab Variance Stated Complaint: SENT BY PCP // BLOOD TRANSFUSION Time Seen by Provider: 09/03/18 13:15 History Source: Patient Exam Limitations: Language Barrier - History of Present Illness Initial Comments: 09/03/18 13:54 Pt is a 68 yo F with PMH of CAD, Afib (on Xarelto) Asthma, HLD, IDDM, HTN sent to ED from PMD for anemia. Pt states that she got a call from the office saying her blood levels were low and was told to come to the emergency room. Pt states that she feels lightheaded slightly. She denies chest pain, SOB, blood in the stool, tarry stool, n/v/d, cough, recent illnesses, swelling in the legs, recent surgeries. PMD: Precious Cards: Florencio GI: Lantin PMH: see hpi PSH: cholecystectomy, appendectomy, hysterectomy Meds: see med rec Allergies: nkda Social: denies Past History - Past Medical History Allergies/Adverse Reactions: Allergies Allergy/AdvReac Type Severity Reaction Status Date / Time No Known Drug Allergies Allergy Verified 09/03/18 11:36 Home Medications: Ambulatory Orders Atorvastatin Ca [Lipitor] 10 mg PO DAILY 08/04/13 Citalopram Hydrobromide [Celexa -] 20 mg PO DAILY 08/04/13 Insulin Detemir [Levemir Flexpen] 60 unit SQ BID 08/04/13 hydrOXYzine HCL [Atarax -] 25 mg PO DAILY 08/04/13 metFORMIN HCL [Glucophage] 1,000 mg PO DAILY 08/04/13 Insulin Aspart [Novolog Flexpen] 10 unit SQ AC 02/14/15 Glipizide 5 mg PO DAILY 05/01/16 Oxybutynin Chloride [Oxybutynin Chloride ER] 15 mg PO DAILY 05/01/16 Salmeterol/Fluticasone [Advair 100Mcg/50Mcg -] 1 inh PO BID 05/01/16 Rivaroxaban [Xarelto -] 20 mg PO DAILY@1800 #90 tablet 07/13/18 Diltiazem HCl [Cardizem LA] 120 mg PO DAILY 08/01/18 Furosemide 40 mg PO BID 08/01/18 Metoprolol Succinate 200 mg PO DAILY 08/01/18 Asthma: Yes Cardiac Disorders: Yes (bradycardic) COPD: No Diabetes: Yes HTN: Yes Hypercholesterolemia: Yes - Surgical History Appendectomy: Yes Cholecystectomy: Yes - Immunization History Immunization Up to Date: Yes - Suicide/Smoking/Psychosocial Hx Smoking Status: No Smoking History: Never smoked Have you smoked in the past 12 months: No Number of Cigarettes Smoked Daily: 0 Hx Alcohol Use: No Drug/Substance Use Hx: No Substance Use Type: None Hx Substance Use Treatment: No Review of Systems - Review of Systems Constitutional: No: Chills, Fever, Weakness HEENTM: No: Symptoms Reported Respiratory: No: Cough, Shortness of Breath, Hemoptysis Cardiac (ROS): No: Chest Pain, Lightheadedness, Palpitations, Syncope ABD/GI: No: Constipated, Diarrhea, Nausea, Rectal Bleeding, Vomiting, Tarry Stools : No: Burning, Dysuria Musculoskeletal: No: Back Pain Integumentary: No: Symptoms Reported Neurological: No: Symptoms reported *Physical Exam - Vital Signs Last Vital Signs Temp Pulse Resp BP Pulse Ox 99 F 62 18 139/50 L 99 09/03/18 11:38 09/03/18 11:38 09/03/18 11:38 09/03/18 11:38 09/03/18 12:29 - Physical Exam General Appearance: Yes: Appropriately Dressed, Obese. No: Apparent Distress HEENT: positive: EOMI, JOSUÉ Neck: positive: Trachea midline, Supple. negative: Lymphadenopathy (R), Lymphadenopathy (L) Respiratory/Chest: positive: Lungs Clear, Normal Breath Sounds. negative: Crackles, Rales, Rhonchi, Stridor, Wheezing Cardiovascular: positive: Regular Rhythm, Regular Rate, Systolic Murmur. negative: S1, S2, Edema, JVD Vascular Pulses: Carotid (R): 2+, Carotid (L): 2+, Dorsalis-Pedis (R): 2+, Doralis-Pedis (L): 2+ Gastrointestinal/Abdominal: positive: Normal Bowel Sounds, Soft. negative: Guarding, Rebound, Tenderness, Hernia Rectal Exam: positive: heme negative stool, normal exam. negative: melena Musculoskeletal: negative: CVA Tenderness Extremity: positive: Normal Capillary Refill. negative: Pedal Edema, Swelling Integumentary: positive: Normal Color, Dry, Warm Neurologic: positive: division head II-XII NML intact, Fully Oriented, Alert, Normal Mood/ Affect, Normal Response, Motor Strength 5/5 Moderate Sedation - Procedure Monitoring Vital Signs: Procedure Monitoring Vital Signs Temperature 99 F 09/03/18 11:38 Pulse Rate 62 09/03/18 11:38 Respiratory Rate 18 09/03/18 11:38 Blood Pressure 139/50 L 09/03/18 11:38 O2 Sat by Pulse Oximetry (%) 99 09/03/18 12:29 ED Treatment Course - LABORATORY CBC & Chemistry Diagram: 09/03/18 13:37 09/03/18 13:37 - ADDITIONAL ORDERS Additional order review: 09/03/18 13:37 RBC 3.18 L MCV 80.9 D MCHC 32.6 RDW 16.8 H MPV 8.5 Neutrophils % 68.7 Lymphocytes % 17.3 Monocytes % 7.3 Eosinophils % 5.2 H Basophils % 1.5 Medical Decision Making - Medical Decision Making 09/03/18 13:59 Pt is a 68 yo F with PMH of CAD, Afib (on Xarelto) Asthma, HLD, IDDM, HTN sent to ED from PMD for anemia. Pt states that she got a call from the office saying her blood levels were low and was told to come to the emergency room. Pt states that she feels lightheaded slightly. She denies chest pain, SOB, blood in the stool, tarry stool, n/v/d, cough, recent illnesses, swelling in the legs, recent surgeries. Vitals: wnl PE: soft systolic murmur, pale conjunctiva. Lungs CTA Sent from PMD office for anemia. Pt has CAD and no history of GI bleed. -cbc, cmp, coags, guaiac -ekg 09/03/18 14:38 Hgb 8.4 (has been 7-8 in the past month, was around 10 early July). Guaiac negative Spoke to Dr. Lang who recommends admission. He spoke to Florencio and Kiko who recommend admission as well. 09/03/18 17:12 Admitting team speaking to administration regarding admission for pt. Pt Hgb is above 7.5 and is not having symptoms. Guaiac negative. Does not need transfusion at this time. Dr. Brandon agrees that pt can be followed outpt. Will DC. Giving instructions to make apponment with cardiology and pmd. pt agrees to plan *DC/Admit/Observation/Transfer Diagnosis at time of Disposition: Anemia Qualifiers: Anemia type: unspecified type Qualified Code(s): D64.9 - Anemia, unspecified - Discharge Dispostion Disposition: HOME Condition at time of disposition: Good Decision to Admit order: No - Referrals Referrals: Celestine Lang MD [Primary Care Provider] - Freida Brandon MD [Staff Physician] - Pop Hoover MD [Staff Physician] - - Patient Instructions Additional Instructions: Hoy te vieron en la joselin de emergencias por anemia. Los niveles de hemoglobina fueron 8.4. No necesitas storm transfusin hoy. Por favor abdlulahi storm katherine con macedo cardilogo esta semana y abdullahi storm katherine con Dr. Lang mantosha Regrese a la joselin de emergencias si siente que va a desmayarse, tiene palpitaciones, tiene dolor en el pecho, tiene dificultad para respirar, ve milli en las heces o si aparece algn sntoma nuevo. Yue You were seen in the emergency room today for anemia. The hemoglobin levels were 8.4. You do not need a transfusion today. Please make an appointment with your cardroom worker this week and make an appointment with Dr. Lang tomorrow. Come back to the emergency room if you feel like you are going to faint, you have palpitations, you have chest pain, you feel short of breath, you see blood in the stool or if any new concerning symptom develops. Thank you - Post Discharge Activity
--- NOTE | 2018-09-03 14:09 | PDOC ---
Attending Attestation - HPI HPI: 09/03/18 14:29 The patient is a 68 year old female with a past medical history of CAD, Asthma, HLD, insulin dependent diabetes, and HTN sent in today by her PCP for anemia. Patient reports that her PCP told her to come into the ER. She notes slight lightheadedness. Patient denies headache. Denies fever, chills. Denies chest pain, shortness of breath. Denies nausea, vomiting, diarrhea, abdominal pain. Allergies: NKDA Surgical history: cholecystectomy, appendectomy, hysterectomy PCP: Celestine Lang - Physicial Exam PE: 09/03/18 14:47 GENERAL: The patient is in no acute distress. HEAD: Normal with no signs of trauma. EYES: PERRLA, EOMI, sclera anicteric, conjunctiva clear. ENT: Ears normal, nares patent, oropharynx clear without exudates. Moist mucous membranes. NECK: Normal range of motion, supple without lymphadenopathy, JVD, or masses. LUNGS: Breath sounds equal, clear to auscultation bilaterally. No wheezes, and no crackles. HEART:Regular rate and rhythm, normal S1 and S2 without murmur, rub or gallop. ABDOMEN: Soft, nontender, normoactive bowel sounds. No guarding, no rebound. No masses palpable. EXTREMITIES: Normal range of motion, no edema. No clubbing or cyanosis. No erythema, or tenderness. NEUROLOGICAL: Cranial nerves II through XII grossly intact. Normal speech. No focal neurological deficits. MUSCULOSKELETAL: Back non-tender to palpation, no CVA tenderness SKIN: Warm, Dry, normal turgor, no rashes or lesions noted. - Medical Decision Making 09/03/18 14:29 Documentation prepared by PHYLICIA Davis, acting as medical housekeeper for Lolly Alonzo MD. <Virgil Stevens - Last Filed: 09/03/18 14:47> - Resident Resident Name: Marisela Beverly - ED Attending Attestation I have performed the following: I have examined & evaluated the patient, The case was reviewed & discussed with the resident, I agree w/resident's findings & plan, Exceptions are as noted - Medical Decision Making 68 yo F sent in to the ER for anemia Pt is weak and dizzy no fevers or chills No nausea, vomiting, diarrhea Laboratory Tests 09/03/18 09/03/18 09/03/18 13:37 13:37 13:37 WBC 10.3 H Hgb 8.4 L Hct 25.7 L Plt Count 354 D INR 2.10 H BUN 18 Creatinine 1.1 Stool Occult Blood 09/03/18 13:50 WBC Hgb Hct Plt Count INR BUN Creatinine Stool Occult Blood Negative 09/03/18 16:24 Case reviewed with hospitalist They do not believe she is an appropriate admission This was reviewed with Dr Matias and Kiko by the hospitalist We have contacted Dr Hollingsworth to confirm patient can be discharged to home 09/03/18 16:26 <Lolly Alonzo - Last Filed: 09/04/18 14:28>
[2018-09-03 14:14] LABS: INR 2.1 (0.83-1.09)
[2018-09-03 14:16] LABS: ACTIVATED PTT 38.9 SECONDS (25.2-36.5)
[2018-09-03 14:28] LABS: ALBUMIN 3.1 g/dl (3.4-5.0); ALK PHOS 154 U/L (45-117); ANION GAP 5 MMOL/L (8-16); BILIRUBIN,TOTAL 0.2 mg/dL (0.2-1); BLOOD UREA NITROGEN 18 mg/dL (7-18); CALCIUM 8.6 mg/dL (8.5-10.1); CHLORIDE 107 mmol/L (98-107); CO2 27 mmol/L (21-32); CREATININE 1.1 mg/dL (0.55-1.3); GLUCOSE,RANDOM 270 mg/dL (74-106); POTASSIUM 4.4 mmol/L (3.5-5.1); SGOT/AST 10 U/L (15-37); SGPT/ALT 13 U/L (13-61); SODIUM 139 mmol/L (136-145); TOT PROT 6.9 g/dl (6.4-8.2)
[2018-09-03 16:48] VITALS: BP 140/83; PULSE 75
== END 2018-09-03 17:10 | disposition home or self-care (01) ==
LOC: JER 11:30 → SUPCPDRO 11:30 → JER 17:10
DX: D64.9 Anemia, unspecified (principal); I48.91 Unspecified atrial fibrillation; I25.10 Atherosclerotic heart disease of native coronary artery without angina pectoris; E78.5 Hyperlipidemia, unspecified; E11.9 Type 2 diabetes mellitus without complications; I10 Essential (primary) hypertension; Z79.01 Long term (current) use of anticoagulants
CPT/HCPCS: 36415; 80053; 82272; 85025; 85610; 85730; 86850; 86900; 86901; 99282-25

== ENCOUNTER 2018-09-17 08:27 | Day surgery (SDC) | payer OTHER ==
[2018-09-17 09:50] LABS: EOS % 9.1 % (0-4.5); HEMATOCRIT 23.5 % (32.4-45.2); HEMOGLOBIN 7.6 GM/dL (10.7-15.3); LYMPH % 15.4 % (8-40); MCH 25.3 pg (25.7-33.7); MCHC 32.1 g/dl (32.0-36.0); MEAN CELL VOLUME 78.9 fl (80-96); MEAN PLT VOLUME 8.8 fl (7.5-11.1); MONO % 7.6 % (3.8-10.2); NEUT % 66.9 % (42.8-82.8); PLATELET COUNT 346 K/MM3 (134-434); RBC 2.98 M/mm3 (3.60-5.2)
[2018-09-17 10:37] LABS: INR 1.07 (0.83-1.09); PROTHROMBIN TIME (PATIENT) 12.6 SEC (9.7-13.0)
[2018-09-17 14:40] VITALS: PULSE 64; TEMP 98.5
[2018-09-17 15:20] VITALS: BP 164/72
== END 2018-09-17 15:24 | disposition home or self-care (01) ==
LOC: JBLOOD 08:27
PROVIDERS: ATTEND Internal Medicine Gastroenterology
PROC: 30233N1 Transfusion of Nonautologous Red Blood Cells into Peripheral Vein, Percutaneous Approach (ICD-10-PCS; principal; 2018-09-17)
DX: D64.9 Anemia, unspecified (principal)
CPT/HCPCS: 36415; 36430; 36511; 85025; 85610; 85730; 86850; 86900; 86901; 86922; P9038; P9058

== ENCOUNTER 2019-04-29 06:15 | Day surgery (SDC) | payer OTHER ==
[~2019-04-29 06:15] MED LIST: ACETAMINOPHEN 325 MG TABLET (FP) PO PRN; CYCLOPENTOLATE HCL 1% OPHTH SOLN 2 ML BOTTLE OP SCH; KETOROLAC TROMETHAMINE 0.5% EYE DROP 1 DROP DROPS OP SCH; OFLOXACIN 0.3% OPHTHALMIC SOLUTION 5 ML BOTTLE OP SCH; PHENYLEPHRINE 2.5% OPHTH SOLN 15 ML BOTTLE OP SCH; TROPICAMIDE 1% OPHTH SOLN 15 ML BOTTLE OP SCH
[2019-04-29 06:34] VITALS: BMI 38.0
[2019-04-29] MEDS ORDERED: KETOROLAC TROMETHAMINE 0.5% EYE DROP 1 DROP DROPS OD ONE ×3 (07:00→07:10)
[2019-04-29] MEDS ORDERED: CYCLOPENTOLATE HCL 1% OPHTH SOLN 2 ML BOTTLE OD ONE ×3 (07:00→07:10)
[2019-04-29] MEDS ORDERED: TROPICAMIDE 1% OPHTH SOLN 15 ML BOTTLE OD ONE ×3 (07:00→07:10)
[2019-04-29] MEDS ORDERED: PHENYLEPHRINE 2.5% OPHTH SOLN 15 ML BOTTLE OD ONE ×3 (07:00→07:10)
[2019-04-29] MEDS ORDERED: OFLOXACIN 0.3% OPHTHALMIC SOLUTION 5 ML BOTTLE OD ONE ×3 (07:00→07:10)
[2019-04-29] MEDS ORDERED: OFLOXACIN 0.3% OPHTHALMIC SOLUTION 5 ML BOTTLE ONE (07:01)
[2019-04-29] MEDS ORDERED: PHENYLEPHRINE 2.5% OPHTH SOLN 15 ML BOTTLE ONE (07:01)
[2019-04-29] MEDS ORDERED: TROPICAMIDE 1% OPHTH SOLN 15 ML BOTTLE ONE (07:01)
[2019-04-29] MEDS ORDERED: CYCLOPENTOLATE HCL 1% OPHTH SOLN 2 ML BOTTLE ONE (07:01)
[2019-04-29] MEDS ORDERED: KETOROLAC TROMETHAMINE 0.5% EYE DROP 1 DROP DROPS ONE (07:02)
[2019-04-29] MEDS ORDERED: EPINEPHrine/PF 1 MG/1 ML (1:1,000) AMPULE ONE (07:27)
[2019-04-29] MEDS ORDERED: POVIDONE-IODINE 5% OPHTHALMIC PREP 30 ML SOLUTION ONE (07:27)
[2019-04-29] MEDS ORDERED: CHONDROITIN SU A/HYALUR SOD 1 KIT ONE (07:28)
[2019-04-29] MEDS ORDERED: LIDOCAINE HCL/PF 1% SDV 5ML VIAL ONE (07:35)
[2019-04-29] MEDS ORDERED: VANCOMYCIN 500 MG VIAL (RESTRICTED TO ID ONLY) ONE (07:35)
[2019-04-29] MEDS ORDERED: BUPIVACAINE HCL/PF 0.75% 10 ML VIAL ONE (07:35)
[2019-04-29] MEDS ORDERED: LIDOCAINE HCL/PF 2% SDV 5ML VIAL ONE ×2 (07:35→08:12)
[2019-04-29] MEDS ORDERED: WATER FOR INJ,STERILE 10 ML ONE (07:36)
[2019-04-29] MEDS ORDERED: BSS (NA/CA/MG/K) BALANCED SALT SOLUTION OPHTH SOLN 15 ML BOTTLE ONE (07:36)
[2019-04-29] MEDS ORDERED: TRYPAN BLUE 0.5 ML DISP.SYRIN ONE (07:37)
[2019-04-29] MEDS ORDERED: MIDAZOLAM HCL 2 MG/2 ML SINGLE DOSE VIAL ONE (07:56)
[2019-04-29] MEDS ORDERED: PROPOFOL 20 ML ONE ×2 (08:12)
[2019-04-29] MEDS ORDERED: LIDOCAINE HCL/PF 2% SDV 5ML VIAL INF ONE (08:16)
[2019-04-29] MEDS ORDERED: BUPIVACAINE HCL/PF 0.75% 10 ML VIAL NR ONE (08:16)
[2019-04-29] MEDS ORDERED: POVIDONE-IODINE 5% OPHTHALMIC PREP 30 ML SOLUTION OD ONE (08:17)
[2019-04-29] MEDS ORDERED: CHONDROITIN SU A/HYALUR SOD 1 KIT IO ONE (08:23)
[2019-04-29] MEDS ORDERED: BSS (NA/CA/MG/K) BALANCED SALT SOLUTION OPHTH SOLN 15 ML BOTTLE OD ONE (08:23)
[2019-04-29] MEDS ORDERED: LIDOCAINE HCL 1% PRESERVATIVE FREE - 30ML VIAL IO ONE (08:23)
[2019-04-29] MEDS ORDERED: EPINEPHrine/PF 1 MG/1 ML (1:1,000) AMPULE SQ ONE (08:29)
[2019-04-29 11:03] VITALS: BP 131/67; PULSE 107; TEMP 97.6
--- NOTE | 2019-04-29 17:28 | SPEC ---
DATE OF OPERATION: OPERATION: Phacoemulsification of right cataract with posterior chamber intraocular lens implantation. Lens used [id number], 20.5 Diopter power, Serial No. [id number]. PREOPERATIVE DIAGNOSIS: Mature cataract, right eye. POSTOPERATIVE DIAGNOSIS: Mature cataract, right eye. SURGEON: Christopher Belle M.D. ANESTHESIA: Peribulbar/Modified Van Lint/MAC. COMPLICATIONS: None. PROCEDURE: The patient was brought to the operating room and correctly identified along with the operative site and a correct intraocular lens bragg. The patient was then given a peribulbar block under sedation with 5 mL of a 1:1 mixture of 2% Lidocaine and 0.5% Bupivacaine. Two to 3 mL of the same mixture was given as a modified Van Lint block. The eye was then prepped and draped in the usual sterile fashion including 5% Betadine solution in the conjunctival sac and an eyelid drape. An eyelid speculum was then placed into the eye. A paracentesis port was created. Viscoelastic was injected to inflate the anterior chamber. A temporal clear corneal wound was created. A continuous circular capsulorrhexis was performed. The nucleus was then hydro-dissected and removed phacoemulsification via the [id number] approach. The remaining cortical material was irrigated and aspirated from the eye. Viscoelastic was injected to inflate the capsular bag. The lens was injected into the capsular bag. Viscoelastic was then irrigated and aspirated from the eye. The intraocular lens was noted to be well centered and covered by the anterior capsular border. All wounds were found to be watertight. Topical Vancomycin was given. The eye patch and shield were placed. The patient was discharged from the operating room in stable condition. Meg SHAFER/[id number]
== END 2019-04-29 11:13 | disposition home or self-care (01) ==
LOC: JASU-SURG 06:15
PROVIDERS: ATTEND Ophthalmology
PROC: 08RJ3JZ Replacement of Right Lens with Synthetic Substitute, Percutaneous Approach (ICD-10-PCS; principal; 2019-04-29 08:00)
DX: H25.21 Age-related cataract, morgagnian type, right eye (principal)
CPT/HCPCS: 82962

== ENCOUNTER 2019-05-13 09:52 | Day surgery (SDC) | payer OTHER ==
[~2019-05-13 09:52] MED LIST changes: +BSS (NA/CA/MG/K) BALANCED SALT SOLUTION OPHTH SOLN 15 ML BOTTLE OS ONE; +BUPIVACAINE HCL/PF 0.75% 10 ML VIAL NR ONE; +CHONDROITIN SU A/HYALUR SOD 1 KIT IO ONE; -CYCLOPENTOLATE HCL 1% OPHTH SOLN 2 ML BOTTLE OP SCH; +EPINEPHrine/PF 1 MG/1 ML (1:1,000) AMPULE SQ ONE; -KETOROLAC TROMETHAMINE 0.5% EYE DROP 1 DROP DROPS OP SCH; +LIDOCAINE HCL 1% PRESERVATIVE FREE - 30ML VIAL IO ONE; +LIDOCAINE HCL/PF 2% SDV 5ML VIAL INF ONE; -OFLOXACIN 0.3% OPHTHALMIC SOLUTION 5 ML BOTTLE OP SCH; -PHENYLEPHRINE 2.5% OPHTH SOLN 15 ML BOTTLE OP SCH; +POVIDONE-IODINE 5% OPHTHALMIC PREP 30 ML SOLUTION OS ONE; -TROPICAMIDE 1% OPHTH SOLN 15 ML BOTTLE OP SCH
[2019-05-13] MEDS ORDERED: CYCLOPENTOLATE HCL 1% OPHTH SOLN 2 ML BOTTLE ONE (10:16)
[2019-05-13] MEDS ORDERED: KETOROLAC TROMETHAMINE 0.5% EYE DROP 1 DROP DROPS ONE (10:17)
[2019-05-13] MEDS ORDERED: TROPICAMIDE 1% OPHTH SOLN 15 ML BOTTLE ONE (10:17)
[2019-05-13] MEDS ORDERED: PHENYLEPHRINE 2.5% OPHTH SOLN 15 ML BOTTLE ONE (10:17)
[2019-05-13] MEDS ORDERED: OFLOXACIN 0.3% OPHTHALMIC SOLUTION 5 ML BOTTLE ONE (10:17)
[2019-05-13] MEDS: PHENYLEPHRINE 2.5% OPHTH SOLN 15 ML BOTTLE OP SCH ×3 (10:45→10:55)
[2019-05-13] MEDS: TROPICAMIDE 1% OPHTH SOLN 15 ML BOTTLE OP SCH ×3 (10:45→10:55)
[2019-05-13] MEDS: OFLOXACIN 0.3% OPHTHALMIC SOLUTION 5 ML BOTTLE OP SCH ×3 (10:45→10:55)
[2019-05-13] MEDS: KETOROLAC TROMETHAMINE 0.5% EYE DROP 1 DROP DROPS OP SCH ×3 (10:45→10:55)
[2019-05-13] MEDS: CYCLOPENTOLATE HCL 1% OPHTH SOLN 2 ML BOTTLE OP SCH ×3 (10:45→10:55)
[2019-05-13] MEDS ORDERED: PROPOFOL 20 ML ONE (11:39)
[2019-05-13] MEDS ORDERED: LIDOCAINE HCL/PF 2% SDV 5ML VIAL INF ONE (11:45)
[2019-05-13] MEDS ORDERED: BUPIVACAINE HCL/PF 0.75% 10 ML VIAL NR ONE (11:45)
[2019-05-13] MEDS ORDERED: POVIDONE-IODINE 5% OPHTHALMIC PREP 30 ML SOLUTION OS ONE (11:46)
[2019-05-13] MEDS ORDERED: CHONDROITIN SU A/HYALUR SOD 1 KIT IO ONE (11:55)
[2019-05-13] MEDS ORDERED: BSS (NA/CA/MG/K) BALANCED SALT SOLUTION OPHTH SOLN 15 ML BOTTLE OS ONE (11:55)
[2019-05-13] MEDS ORDERED: LIDOCAINE HCL 1% PRESERVATIVE FREE - 30ML VIAL IO ONE (11:55)
[2019-05-13] MEDS ORDERED: EPINEPHrine/PF 1 MG/1 ML (1:1,000) AMPULE SQ ONE (12:00)
[2019-05-13 12:49] VITALS: PULSE 54; TEMP 98.1
[2019-05-13 13:18] VITALS: BP 134/92
--- NOTE | 2019-05-14 08:25 | SPEC ---
DATE OF OPERATION: 05/13/2019 DATE OF DICTATION: 05/13/2019 OPERATION: Phacoemulsification with posterior chamber intraocular lens implantation, left eye, lens used SN60WF, 21.0 diopter, serial no. [id number]. PREOPERATIVE DIAGNOSIS: Cataract left eye. POSTOPERATIVE DIAGNOSIS: Cataract left eye. SURGEON: Christopher Belle M.D. ANESTHESIA: Peribulbar/Modified Van Lint/MAC. COMPLICATIONS: PROCEDURE: The patient was brought to the operating room and correctly identified along with the operative site and a correct intraocular lens bragg. The patient was then given a peribulbar block under sedation with 5 mL of a 1:1 mixture of 2% lidocaine and 0.5% bupivacaine. Two to 3 mL of the same mixture was given as a modified Van Lint block. The eye was then prepped and draped in the usual sterile fashion including 5% Betadine solution in the conjunctival sac and an eyelid drape. An eyelid speculum was then placed into the eye. A paracentesis port was created. Viscoelastic was injected to inflate the anterior chamber. A temporal clear corneal wound was created. A continuous circular capsulorrhexis was performed. The nucleus was then hydro-dissected and removed phacoemulsification via the [id number] approach. The remaining cortical material was irrigated and aspirated from the eye. Viscoelastic was injected to inflate the capsular bag. The lens was injected into the capsular bag. Viscoelastic was then irrigated and aspirated from the eye. The intraocular lens was noted to be well centered and covered by the anterior capsular border. All wounds were found to be watertight. Topical Vancomycin was given. The eye patch and shield were placed. The patient was discharged from the operating room in stable condition. Meg SHAFER/[id number]
== END 2019-05-13 13:23 | disposition home or self-care (01) ==
LOC: JASU-SURG 09:52
PROVIDERS: ATTEND Ophthalmology
PROC: 08RK3JZ Replacement of Left Lens with Synthetic Substitute, Percutaneous Approach (ICD-10-PCS; principal; 2019-05-13 09:30)
DX: H26.9 Unspecified cataract (principal); E11.9 Type 2 diabetes mellitus without complications; I10 Essential (primary) hypertension; J44.9 Chronic obstructive pulmonary disease, unspecified; E66.01 Morbid (severe) obesity due to excess calories
CPT/HCPCS: 82962

== ENCOUNTER 2021-09-01 12:50 | Emergency (ER) | payer OTHER ==
[2021-09-01 13:07] VITALS: BP 163/84; PULSE 60; TEMP 98.1; BMI 36.2
[2021-09-01] MEDS ORDERED: SODIUM CHLORIDE 0.9% 500 ML INFUS.BAG IV ONE (14:57)
[2021-09-01] MEDS ORDERED: INSULIN REGULAR HUMAN 100 UNITS/ML *VIAL IVPUSH ONE (14:57)
[2021-09-01 15:46] LABS: BASO % 0.9 % (0-2.0); EOS % 2.7 % (0-4.5); HEMATOCRIT 33.4 % (32.4-45.2); HEMOGLOBIN 11.2 GM/dL (10.7-15.3); LYMPH % 19.7 % (8-40); MCH 31.5 pg (25.7-33.7); MCHC 33.6 g/dl (32.0-36.0); MEAN CELL VOLUME 93.8 fl (80-96); MEAN PLT VOLUME 9.7 fl (7.5-11.1); MONO % 7.3 % (3.8-10.2); NEUT % 69.4 % (42.8-82.8); PLATELET COUNT 248 10^3/uL (134-434); RBC 3.55 M/mm3 (3.60-5.2); RDW 12.8 % (11.6-15.6); WHITE BLOOD COUNT 10.3 K/mm3 (4.0-10.0)
[2021-09-01 16:03] LABS: CHLORIDE 98 mmol/L (98-107); SODIUM 132 mmol/L (136-145)
[2021-09-01 16:06] LABS: ALBUMIN 3.1 g/dl (3.4-5.0); ANION GAP 7 MMOL/L (8-16); BLOOD UREA NITROGEN 28.7 mg/dL (7-18); CO2 28 mmol/L (21-32)
[2021-09-01 16:09] LABS: CREATININE 1.6 mg/dL (0.55-1.3); SGOT/AST 17 U/L (15-37); SGPT/ALT 20 U/L (13-61)
[2021-09-01 16:10] LABS: BILIRUBIN,TOTAL 0.4 mg/dL (0.2-1)
[2021-09-01 16:12] LABS: ALK PHOS 152 U/L (45-117)
[2021-09-01 16:28] LABS: GLUCOSE,RANDOM 495 mg/dL (74-106)
[2021-09-01 17:47] LABS: BLOOD UREA NITROGEN 27.9 mg/dL (7-18); CALCIUM 8.8 mg/dL (8.5-10.1); CREATININE 1.4 mg/dL (0.55-1.3)
[2021-09-01] MEDS ORDERED: INSULIN REGULAR HUMAN 100 UNITS/ML *VIAL SQ ONE (18:10)
== END 2021-09-01 20:35 | disposition home or self-care (01) ==
LOC: JER 12:50
PROC: 3E033GC Introduction of Other Therapeutic Substance into Peripheral Vein, Percutaneous Approach (ICD-10-PCS; principal; 2021-09-01)
PROC: 3E023GC Introduction of Other Therapeutic Substance into Muscle, Percutaneous Approach (ICD-10-PCS; principal; 2021-09-01)
DX: R73.9 Hyperglycemia, unspecified (principal)
CPT/HCPCS: 36415; 80048; 80053; 82962; 85025; 96372; 96374; 99284-25

== ENCOUNTER 2022-08-13 12:19 | Emergency (ER) | payer OTHER ==
[2022-08-13 12:36] VITALS: RESP 18; BMI 34.6
[2022-08-13] MEDS ORDERED: SODIUM CHLORIDE 0.9% 500 ML INFUS.BAG IV ONE (14:26)
[2022-08-13 16:31] LABS: BASO % 1.1 % (0-2.0); EOS % 2.5 % (0-4.5); HEMATOCRIT 35.5 % (32.4-45.2); HEMOGLOBIN 11.8 GM/dL (10.7-15.3); LYMPH % 21.5 % (8-40); MCH 30.2 pg (25.7-33.7); MCHC 33.4 g/dl (32.0-36.0); MEAN CELL VOLUME 90.4 fl (80-96); MEAN PLT VOLUME 9.2 fl (7.5-11.1); MONO % 6.3 % (3.8-10.2); NEUT % 68.6 % (42.8-82.8); PLATELET COUNT 357 10^3/uL (134-434); RBC 3.92 M/mm3 (3.60-5.2); RDW 13.4 % (11.6-15.6); WHITE BLOOD COUNT 12.8 K/mm3 (4.0-10.0)
[2022-08-13 16:51] LABS: BLOOD UREA NITROGEN 27.2 mg/dL (7-18); CALCIUM 9.4 mg/dL (8.5-10.1)
[2022-08-13 16:52] LABS: ALBUMIN 2.9 g/dl (3.4-5.0)
[2022-08-13 16:55] LABS: CREATININE 1.3 mg/dL (0.55-1.3)
[2022-08-13 16:56] LABS: BILIRUBIN,TOTAL 0.5 mg/dL (0.2-1); TOT PROT 7.2 g/dl (6.4-8.2)
[2022-08-13 17:31] VITALS: BP 133/79; PULSE 72; TEMP 98
[2022-08-13 18:52] LABS: EPI CELLS 33 /uL (0-25.1); HYALINE CASTS 2 /uL (0-3.1); URINE APPEARANCE TURBID; URINE BACTERIA >9,000 /uL (0-1359); URINE BILIRUBIN NEGATIVE (NEGATIVE); URINE COLOR ORANGE; URINE GLUCOSE (UA) NEGATIVE (NEGATIVE); URINE KETONE TRACE (NEGATIVE); URINE LEUK ESTERASE 3+ (NEGATIVE); URINE NITRITE NEGATIVE (NEGATIVE); URINE PROTEIN 3+ (NEGATIVE); URINE RBC 6521 /uL (0-23.9); URINE WBC 21703 /uL (0-25.8)
[2022-08-13] MEDS ORDERED: CEFTRIAXONE 1 GM in DEXTROSE 5%-WATER - 100 ML IVPB ONE (19:02)
[2022-08-13] MEDS ORDERED: CEFTRIAXONE 1 GM/50 ML BAG ONE (19:34)
== END 2022-08-13 22:40 | disposition home or self-care (01) ==
LOC: JER 12:19
PROC: 3E033GC Introduction of Other Therapeutic Substance into Peripheral Vein, Percutaneous Approach (ICD-10-PCS; principal; 2022-08-13)
DX: N30.01 Acute cystitis with hematuria (principal)
CPT/HCPCS: 36415; 74176-TC; 80053; 81003; 85025; 87086; 87186; 93005; 93010; 96365; 99285-25

== ENCOUNTER 2022-10-29 14:49 | Inpatient (IN) | payer OTHER ==
[2022-10-29 18:22] LABS: BASO % 1.4 % (0-2.0); EOS % 0.6 % (0-4.5); HEMATOCRIT 34.4 % (32.4-45.2); HEMOGLOBIN 11.5 GM/dL (10.7-15.3); LYMPH % 16.6 % (8-40); MCH 30.1 pg (25.7-33.7); MCHC 33.5 g/dl (32.0-36.0); MEAN CELL VOLUME 89.7 fl (80-96); MEAN PLT VOLUME 9.4 fl (7.5-11.1); MONO % 6.7 % (3.8-10.2); NEUT % 74.7 % (42.8-82.8); PLATELET COUNT 267 10^3/uL (134-434); RBC 3.83 M/mm3 (3.60-5.2); RDW 13.4 % (11.6-15.6)
[2022-10-29 18:39] LABS: CHLORIDE 92 mmol/L (98-107); INR 2.08 (0.83-1.09); POTASSIUM 5.5 mmol/L (3.5-5.1); SODIUM 129 mmol/L (136-145)
[2022-10-29 18:41] LABS: ACTIVATED PTT 39.6 SECONDS (25.2-36.5); ALBUMIN 3.1 g/dl (3.4-5.0); ANION GAP 7 MMOL/L (8-16); BLOOD UREA NITROGEN 33.9 mg/dL (7-18); CALCIUM 9.1 mg/dL (8.5-10.1); CO2 30 mmol/L (21-32)
[2022-10-29 18:45] LABS: SGOT/AST 10 U/L (15-37); SGPT/ALT 18 U/L (13-61)
[2022-10-29 18:46] LABS: BILIRUBIN,TOTAL 0.5 mg/dL (0.2-1)
[2022-10-29 18:47] LABS: TOT PROT 7.4 g/dl (6.4-8.2)
[2022-10-29 18:48] LABS: ALK PHOS 145 U/L (45-117)
[2022-10-29 18:49] LABS: GLUCOSE,RANDOM 536 mg/dL (74-106)
[2022-10-29] MEDS ORDERED: VANCOMYCIN 1 GM in D5W (PRE-DOCKED) 1,000 MG/250 ML (RESTRICTED TO ID ONLY IVPB ONE (19:38)
[2022-10-29] MEDS ORDERED: SODIUM CHLORIDE 1,000 ML IV STA (19:38)
[2022-10-29] MEDS ORDERED: CEFEPIME HCL/D5W 2 GM/50 ML BAG IVPB ONE (19:39)
[2022-10-29 19:40] LABS: ERYTHROCYTE SEDIMENTATION RATE 78 mm/hr (0-30)
[2022-10-29] MEDS ORDERED: INSULIN (NOVOLOG) ASPART 100 UNITS/ML 10ML VIAL SQ ONE (19:40)
[2022-10-29] MEDS ORDERED: CEFEPIME 2 GM/100 ML BAG IVPB ONE (20:33)
[2022-10-29] MEDS ORDERED: VANCOMYCIN/WATER FOR INJ (PEG) 1,000 MG/200 ML BAG IVPB ONE (20:33)
[2022-10-30] MEDS ORDERED: DEXTROSE 50%-WATER 25 GM/50 ML DISP.SYRIN IVPUSH PRN (01:26)
[2022-10-30] MEDS: PIPERACILLIN/TAZOB 2.25 GM 2.25 GM in DEXTROSE 5%-WATER - 50 ML IVPB SCH ×3 (02:38→17:14)
[2022-10-30] MEDS: INSULIN SLIDING SCALE (NOVOLOG) 1 VIAL SQ SCH ×5 (03:17→23:28)
[2022-10-30] MEDS: INSULIN (NOVOLOG) ASPART 100 UNITS/ML 10ML VIAL SQ SCH ×3 (06:32→17:13)
[2022-10-30] MEDS: INSULIN (LEVEMIR) 100 UNITS/ML UNITS SQ SCH (06:32)
[2022-10-30 09:08] LABS: BASO % 1.2 % (0-2.0); EOS % 2.1 % (0-4.5); HEMATOCRIT 33.5 % (32.4-45.2); HEMOGLOBIN 11.4 GM/dL (10.7-15.3); LYMPH % 20.4 % (8-40); MCH 30.5 pg (25.7-33.7); MEAN CELL VOLUME 89.6 fl (80-96); MEAN PLT VOLUME 10.1 fl (7.5-11.1); MONO % 8.2 % (3.8-10.2); NEUT % 68.1 % (42.8-82.8); PLATELET COUNT 267 10^3/uL (134-434); RBC 3.74 M/mm3 (3.60-5.2); RDW 13.7 % (11.6-15.6); WHITE BLOOD COUNT 12.5 K/mm3 (4.0-10.0)
[2022-10-30 09:14] LABS: POTASSIUM 4.3 mmol/L (3.5-5.1)
[2022-10-30 09:16] LABS: CALCIUM 9.1 mg/dL (8.5-10.1)
[2022-10-30 09:20] LABS: CREATININE 1.8 mg/dL (0.55-1.3); PHOSPHOROUS 3.3 mg/dL (2.5-4.9)
[2022-10-30 09:21] LABS: BILIRUBIN,TOTAL 0.4 mg/dL (0.2-1); TOT PROT 7.2 g/dl (6.4-8.2)
[2022-10-30] MEDS: ESCITALOPRAM OXALATE 10 MG TABLET PO SCH (09:34)
[2022-10-30] MEDS: FUROSEMIDE 40 MG TABLET (FP) PO SCH (09:34)
[2022-10-30] MEDS: EZETIMIBE 10 MG TABLET (FP) PO SCH (09:35)
[2022-10-30] MEDS ORDERED: LISINOPRIL 10 MG TABLET PO SCH (10:00)
[2022-10-30] MEDS: RIVAROXABAN 15 MG TABLET PO SCH (18:02)
[2022-10-30] MEDS: ATORVASTATIN CA 10 MG TABLET (FP) PO SCH (23:16)
[2022-10-30] MEDS ORDERED: INSULIN (NOVOLOG) ASPART 100 UNITS/ML 10ML VIAL ONE (23:27)
[2022-10-31] MEDS: INSULIN SLIDING SCALE (NOVOLOG) 1 VIAL SQ SCH ×5 (01:40→22:19)
[2022-10-31] MEDS: INSULIN (NOVOLOG) ASPART 100 UNITS/ML 10ML VIAL SQ SCH ×3 (06:39→16:34)
[2022-10-31] MEDS: INSULIN (LEVEMIR) 100 UNITS/ML UNITS SQ SCH (06:39)
[2022-10-31 08:15] LABS: BASO % 0.9 % (0-2.0); EOS % 2.4 % (0-4.5); HEMATOCRIT 31.2 % (32.4-45.2); HEMOGLOBIN 10.9 GM/dL (10.7-15.3); LYMPH % 23.4 % (8-40); MCH 30.9 pg (25.7-33.7); MCHC 34.8 g/dl (32.0-36.0); MEAN CELL VOLUME 88.8 fl (80-96); MEAN PLT VOLUME 9.9 fl (7.5-11.1); MONO % 7.2 % (3.8-10.2); NEUT % 66.1 % (42.8-82.8); PLATELET COUNT 231 10^3/uL (134-434); RBC 3.51 M/mm3 (3.60-5.2); RDW 13.5 % (11.6-15.6); WHITE BLOOD COUNT 10.8 K/mm3 (4.0-10.0)
[2022-10-31 08:36] LABS: ALBUMIN 2.6 g/dl (3.4-5.0); BLOOD UREA NITROGEN 35.7 mg/dL (7-18); CALCIUM 9.4 mg/dL (8.5-10.1)
[2022-10-31 08:38] LABS: CREATININE 1.4 mg/dL (0.55-1.3)
[2022-10-31 08:41] LABS: BILIRUBIN,TOTAL 0.3 mg/dL (0.2-1); TOT PROT 6.4 g/dl (6.4-8.2)
[2022-10-31] MEDS: ESCITALOPRAM OXALATE 10 MG TABLET PO SCH (09:38)
[2022-10-31] MEDS: EZETIMIBE 10 MG TABLET (FP) PO SCH (09:38)
[2022-10-31] MEDS: FUROSEMIDE 40 MG TABLET (FP) PO SCH (09:38)
[2022-10-31] MEDS: PATIENT'S OWN MEDICATION (NON-FORMULARY) (Mirabegron [Myrbetriq] 25 MG Tab.Er.24h) PO SCH (09:40)
[2022-10-31] MEDS ORDERED: INSULIN (NOVOLOG) ASPART 100 UNITS/ML 10ML VIAL ONE ×2 (16:31→21:54)
[2022-10-31] MEDS: RIVAROXABAN 15 MG TABLET PO SCH (18:21)
[2022-10-31] MEDS: ATORVASTATIN CA 10 MG TABLET (FP) PO SCH (22:18)
[2022-11-01] MEDS: INSULIN (NOVOLOG) ASPART 100 UNITS/ML 10ML VIAL SQ SCH ×3 (07:02→16:35)
[2022-11-01] MEDS: INSULIN (LEVEMIR) 100 UNITS/ML UNITS SQ SCH (07:02)
[2022-11-01] MEDS: INSULIN SLIDING SCALE (NOVOLOG) 1 VIAL SQ SCH ×4 (07:02→22:06)
[2022-11-01 07:43] LABS: BASO % 1.2 % (0-2.0); EOS % 2.4 % (0-4.5); HEMATOCRIT 32.4 % (32.4-45.2); LYMPH % 24.2 % (8-40); MCH 30.9 pg (25.7-33.7); MEAN CELL VOLUME 90.7 fl (80-96); MEAN PLT VOLUME 10.4 fl (7.5-11.1); MONO % 7.2 % (3.8-10.2); PLATELET COUNT 234 10^3/uL (134-434); RBC 3.57 M/mm3 (3.60-5.2); WHITE BLOOD COUNT 11.5 K/mm3 (4.0-10.0)
[2022-11-01 08:03] LABS: ALBUMIN 2.8 g/dl (3.4-5.0); BLOOD UREA NITROGEN 31.1 mg/dL (7-18); CALCIUM 9.5 mg/dL (8.5-10.1); MAGNESIUM 2.2 mg/dL (1.8-2.4)
[2022-11-01 08:06] LABS: CREATININE 1.3 mg/dL (0.55-1.3)
[2022-11-01 08:08] LABS: BILIRUBIN,TOTAL 0.4 mg/dL (0.2-1); TOT PROT 6.6 g/dl (6.4-8.2)
[2022-11-01] MEDS: FUROSEMIDE 40 MG TABLET (FP) PO SCH (09:40)
[2022-11-01] MEDS: EZETIMIBE 10 MG TABLET (FP) PO SCH (09:40)
[2022-11-01] MEDS: PATIENT'S OWN MEDICATION (NON-FORMULARY) (Mirabegron [Myrbetriq] 25 MG Tab.Er.24h) PO SCH (09:40)
[2022-11-01] MEDS: ESCITALOPRAM OXALATE 10 MG TABLET PO SCH (09:40)
[2022-11-01] MEDS ORDERED: INSULIN (NOVOLOG) ASPART 100 UNITS/ML 10ML VIAL ONE ×3 (10:46→22:00)
[2022-11-01] MEDS ORDERED: BUPIVACAINE HCL/PF 0.5% (5MG/ML) 10 ML VIAL ONE (13:49)
[2022-11-01] MEDS ORDERED: LIDOCAINE 1% P/F 10 MG/ML VIAL INF ONE ×2 (15:09)
[2022-11-01] MEDS ORDERED: BUPIVACAINE HCL/PF 0.5% (5MG/ML) 10 ML VIAL IJ ONE ×2 (15:09)
[2022-11-01] MEDS ORDERED: DEXTROSE 50%-WATER 25 GM/50 ML DISP.SYRIN IVPUSH PRN (15:31)
[2022-11-01] MEDS: RIVAROXABAN 15 MG TABLET PO SCH (17:01)
[2022-11-01] MEDS ORDERED: RIVAROXABAN 15 MG TABLET PO SCH (18:00)
[2022-11-01] MEDS: ATORVASTATIN CA 10 MG TABLET (FP) PO SCH (22:06)
[2022-11-02] MEDS ORDERED: diphenhydrAMINE HCL 25 MG CAPSULE (FP) PO ONE (01:07)
[2022-11-02] MEDS: INSULIN (LEVEMIR) 100 UNITS/ML UNITS SQ SCH (06:22)
[2022-11-02] MEDS: INSULIN (NOVOLOG) ASPART 100 UNITS/ML 10ML VIAL SQ SCH ×3 (06:22→17:12)
[2022-11-02] MEDS: INSULIN SLIDING SCALE (NOVOLOG) 1 VIAL SQ SCH ×4 (06:22→21:50)
[2022-11-02 08:37] LABS: POTASSIUM 4.6 mmol/L (3.5-5.1)
[2022-11-02 08:38] LABS: BASO % 1.1 % (0-2.0); EOS % 1.9 % (0-4.5); HEMATOCRIT 30.8 % (32.4-45.2); HEMOGLOBIN 10.8 GM/dL (10.7-15.3); LYMPH % 24.4 % (8-40); MCH 31.6 pg (25.7-33.7); MCHC 35.1 g/dl (32.0-36.0); MEAN PLT VOLUME 10.2 fl (7.5-11.1); MONO % 8.8 % (3.8-10.2); NEUT % 63.8 % (42.8-82.8); PLATELET COUNT 222 10^3/uL (134-434); RBC 3.43 M/mm3 (3.60-5.2); RDW 13.8 % (11.6-15.6); WHITE BLOOD COUNT 12.2 K/mm3 (4.0-10.0)
[2022-11-02 08:45] LABS: ALBUMIN 2.7 g/dl (3.4-5.0); BLOOD UREA NITROGEN 32.7 mg/dL (7-18); CALCIUM 9.1 mg/dL (8.5-10.1)
[2022-11-02 08:48] LABS: CREATININE 1.4 mg/dL (0.55-1.3)
[2022-11-02 08:50] LABS: BILIRUBIN,TOTAL 0.5 mg/dL (0.2-1); TOT PROT 6.5 g/dl (6.4-8.2)
[2022-11-02] MEDS ORDERED: PATIENT'S OWN MEDICATION (NON-FORMULARY) (Mirabegron [Myrbetriq] 25 MG) PO SCH (10:00)
[2022-11-02] MEDS: FUROSEMIDE 40 MG TABLET (FP) PO SCH (10:13)
[2022-11-02] MEDS: ESCITALOPRAM OXALATE 10 MG TABLET PO SCH (10:13)
[2022-11-02] MEDS: EZETIMIBE 10 MG TABLET (FP) PO SCH (10:14)
[2022-11-02] MEDS: PATIENT'S OWN MEDICATION (NON-FORMULARY) (Mirabegron [Myrbetriq] 25 MG Tab.Er.24h) PO SCH (10:18)
[2022-11-02] MEDS: AZTREONAM 1 GM in DEXTROSE 5%-WATER - 50 ML IVPB SCH ×2 (14:49→17:14)
[2022-11-02] MEDS ORDERED: BISACODYL 5 MG TABLET.DR (FP) PO PRN (15:41)
[2022-11-02] MEDS ORDERED: POLYETHYLENE GLYCOL (HEALTHYLAX) 3350 17 GM PACKET PO SCH (15:45)
[2022-11-02] MEDS: RIVAROXABAN 15 MG TABLET PO SCH (17:14)
[2022-11-02] MEDS: ATORVASTATIN CA 10 MG TABLET (FP) PO SCH (21:42)
[2022-11-02] MEDS: DOCUSATE SODIUM 100 MG CAPSULE (FP) PO SCH (21:51)
[2022-11-03] MEDS: AZTREONAM 1 GM in DEXTROSE 5%-WATER - 50 ML IVPB SCH ×3 (01:45→17:18)
[2022-11-03] MEDS: ACETAMINOPHEN 325 MG TABLET (FP) PO PRN ×2 (03:27→21:50)
[2022-11-03] MEDS: INSULIN (LEVEMIR) 100 UNITS/ML UNITS SQ SCH ×2 (06:05→22:02)
[2022-11-03] MEDS: INSULIN (NOVOLOG) ASPART 100 UNITS/ML 10ML VIAL SQ SCH ×3 (06:05→17:18)
[2022-11-03] MEDS: INSULIN SLIDING SCALE (NOVOLOG) 1 VIAL SQ SCH ×4 (06:06→22:02)
[2022-11-03] MEDS: EZETIMIBE 10 MG TABLET (FP) PO SCH (10:16)
[2022-11-03] MEDS: POLYETHYLENE GLYCOL (HEALTHYLAX) 3350 17 GM PACKET PO SCH (10:17)
[2022-11-03] MEDS: FUROSEMIDE 40 MG TABLET (FP) PO SCH (10:17)
[2022-11-03] MEDS: ESCITALOPRAM OXALATE 10 MG TABLET PO SCH (10:17)
[2022-11-03] MEDS: PATIENT'S OWN MEDICATION (NON-FORMULARY) (Mirabegron [Myrbetriq] 25 MG Tab.Er.24h) PO SCH (10:18)
[2022-11-03] MEDS: RIVAROXABAN 15 MG TABLET PO SCH (17:22)
[2022-11-03] MEDS: DOCUSATE SODIUM 100 MG CAPSULE (FP) PO SCH (21:49)
[2022-11-03] MEDS: ATORVASTATIN CA 10 MG TABLET (FP) PO SCH (21:52)
[2022-11-04] MEDS: AZTREONAM 1 GM in DEXTROSE 5%-WATER - 50 ML IVPB SCH ×3 (02:53→17:30)
[2022-11-04] MEDS: INSULIN (LEVEMIR) 100 UNITS/ML UNITS SQ SCH ×2 (06:27→21:54)
[2022-11-04] MEDS: INSULIN (NOVOLOG) ASPART 100 UNITS/ML 10ML VIAL SQ SCH ×3 (06:28→17:30)
[2022-11-04] MEDS: INSULIN SLIDING SCALE (NOVOLOG) 1 VIAL SQ SCH ×4 (06:29→21:54)
[2022-11-04] MEDS: EZETIMIBE 10 MG TABLET (FP) PO SCH (09:43)
[2022-11-04] MEDS: ESCITALOPRAM OXALATE 10 MG TABLET PO SCH (09:43)
[2022-11-04] MEDS: FUROSEMIDE 40 MG TABLET (FP) PO SCH (09:43)
[2022-11-04] MEDS: POLYETHYLENE GLYCOL (HEALTHYLAX) 3350 17 GM PACKET PO SCH (09:44)
[2022-11-04] MEDS: PATIENT'S OWN MEDICATION (NON-FORMULARY) (Mirabegron [Myrbetriq] 25 MG Tab.Er.24h) PO SCH (11:38)
[2022-11-04] MEDS: RIVAROXABAN 15 MG TABLET PO SCH (17:30)
[2022-11-04] MEDS ORDERED: INSULIN (NOVOLOG) ASPART 100 UNITS/ML 10ML VIAL ONE (21:24)
[2022-11-04] MEDS: DOCUSATE SODIUM 100 MG CAPSULE (FP) PO SCH (21:52)
[2022-11-04] MEDS: ATORVASTATIN CA 10 MG TABLET (FP) PO SCH (21:53)
[2022-11-04] MEDS: ACETAMINOPHEN 325 MG TABLET (FP) PO PRN (21:53)
[2022-11-05] MEDS: AZTREONAM 1 GM in DEXTROSE 5%-WATER - 50 ML IVPB SCH ×2 (03:00→09:34)
[2022-11-05 05:25] VITALS: RESP 20
[2022-11-05] MEDS: INSULIN (LEVEMIR) 100 UNITS/ML UNITS SQ SCH (08:11)
[2022-11-05] MEDS: INSULIN (NOVOLOG) ASPART 100 UNITS/ML 10ML VIAL SQ SCH ×3 (08:12→17:12)
[2022-11-05] MEDS: INSULIN SLIDING SCALE (NOVOLOG) 1 VIAL SQ SCH ×3 (08:13→17:15)
[2022-11-05] MEDS: PATIENT'S OWN MEDICATION (NON-FORMULARY) (Mirabegron [Myrbetriq] 25 MG Tab.Er.24h) PO SCH (09:33)
[2022-11-05] MEDS: POLYETHYLENE GLYCOL (HEALTHYLAX) 3350 17 GM PACKET PO SCH (09:33)
[2022-11-05] MEDS: ESCITALOPRAM OXALATE 10 MG TABLET PO SCH (09:34)
[2022-11-05] MEDS: FUROSEMIDE 40 MG TABLET (FP) PO SCH (09:34)
[2022-11-05] MEDS: EZETIMIBE 10 MG TABLET (FP) PO SCH (09:35)
[2022-11-05 09:42] VITALS: PULSE 60
[2022-11-05] MEDS ORDERED: ERTAPENEM SODIUM 1 GM in SODIUM CHLORIDE 50 ML IVPB SCH (11:00)
[2022-11-05 15:43] VITALS: BP 142/70; TEMP 98.6
[2022-11-05 16:04] VITALS: BMI 39.3
[2022-11-05] MEDS: RIVAROXABAN 15 MG TABLET PO SCH (17:12)
== END 2022-11-05 18:35 | disposition home health service (06) | DRG 638 ==
LOC: JER 14:49 → JERBED 20:14 → J8W 21:46
PROVIDERS: ADMIT Internal Medicine; ATTEND Nurse Practitioner Acute Care
PROC: 07DT3ZX Extraction of Bone Marrow, Percutaneous Approach, Diagnostic (ICD-10-PCS; principal; 2022-11-01 15:00)
PROC: 02HV33Z Insertion of Infusion Device into Superior Vena Cava, Percutaneous Approach (ICD-10-PCS; 2022-11-05)
PROC: B548ZZA Ultrasonography of Superior Vena Cava, Guidance (ICD-10-PCS; 2022-11-05)
DX: E11.69 Type 2 diabetes mellitus with other specified complication (principal); L97.528 Non-pressure chronic ulcer of other part of left foot with other specified severity; M86.8X7 Other osteomyelitis, ankle and foot; I48.91 Unspecified atrial fibrillation; E78.5 Hyperlipidemia, unspecified; D64.9 Anemia, unspecified; F41.9 Anxiety disorder, unspecified; I12.9 Hypertensive chronic kidney disease with stage 1 through stage 4 chronic kidney disease, or unspecified chronic kidney disease; E11.22 Type 2 diabetes mellitus with diabetic chronic kidney disease; N18.2 Chronic kidney disease, stage 2 (mild); E11.65 Type 2 diabetes mellitus with hyperglycemia; E11.621 Type 2 diabetes mellitus with foot ulcer; E11.51 Type 2 diabetes mellitus with diabetic peripheral angiopathy without gangrene; D72.829 Elevated white blood cell count, unspecified; L08.89 Other specified local infections of the skin and subcutaneous tissue
CPT/HCPCS: 36415; 36569; 73630-TC-LT; 73660-TC-LT-FY; 73718-TC-LT; 80053; 82962; 83036; 83735; 84100; 85025; 85610; 85651; 85730; 86140; 87070; 87075; 87081; 87205; 93005; 93010; 93926-TC; 94760; 97116-GP; 97162-GP; 99285-25; C9803-CS; U0003; U0005

== ENCOUNTER 2022-11-06 12:43 | Day surgery (SDC) | payer OTHER ==
[2022-11-06] MEDS ORDERED: ERTAPENEM SODIUM 1 GM in SODIUM CHLORIDE 50 ML IVPB ONE (13:15)
[2022-11-06] MEDS ORDERED: DALBAVANCIN HCL 1,500 MG in DEXTROSE 5%-WATER - 500 ML IVPB ONE (14:00)
[2022-11-06 14:28] VITALS: BP 110/60; PULSE 62; RESP 18; TEMP 98
== END 2022-11-08 14:06 | disposition home or self-care (01) ==
LOC: FINFUSION 12:43 → FM/S 12:44 → FINFUSION 14:33
PROVIDERS: ATTEND Internal Medicine Infectious Disease
DX: M86.8X7 Other osteomyelitis, ankle and foot (principal)
CPT/HCPCS: 96365; 96367; J0875

== ENCOUNTER 2022-11-07 13:09 | Day surgery (SDC) | payer OTHER ==
[2022-11-07] MEDS ORDERED: ERTAPENEM SODIUM 1 GM in SODIUM CHLORIDE 50 ML IVPB ONE (13:30)
[2022-11-07 14:15] VITALS: BP 153/59; PULSE 68; RESP 17; TEMP 98.4
== END 2022-11-07 14:16 | disposition home or self-care (01) ==
LOC: FINFUSION 13:09 → FM/S 13:09 → FINFUSION 14:16
PROVIDERS: ATTEND Internal Medicine Infectious Disease
DX: M86.8X7 Other osteomyelitis, ankle and foot (principal)
CPT/HCPCS: 96365

== ENCOUNTER 2022-11-08 12:52 | Day surgery (SDC) | payer OTHER ==
[2022-11-08] MEDS ORDERED: ERTAPENEM SODIUM 1 GM in SODIUM CHLORIDE 50 ML IVPB ONE (13:15)
[2022-11-08 14:05] VITALS: BP 126/74; PULSE 88; RESP 18; TEMP 97.7
== END 2022-11-08 13:28 | disposition home or self-care (01) ==
LOC: FINFUSION 12:52 → FM/S 12:53 → FINFUSION 13:28
PROVIDERS: ATTEND Internal Medicine Infectious Disease
DX: M86.8X7 Other osteomyelitis, ankle and foot (principal)
CPT/HCPCS: 96365

== ENCOUNTER 2022-11-09 12:30 | Day surgery (SDC) | payer OTHER ==
[2022-11-09] MEDS ORDERED: ERTAPENEM SODIUM 1 GM in SODIUM CHLORIDE 50 ML IVPB ONE (13:00)
[2022-11-09 15:15] VITALS: BP 135/65; PULSE 55; RESP 18; TEMP 98.1
== END 2022-11-09 14:15 | disposition home or self-care (01) ==
LOC: FINFUSION 12:30 → FM/S 12:31 → FINFUSION 14:15
PROVIDERS: ATTEND Internal Medicine Infectious Disease
DX: M86.8X7 Other osteomyelitis, ankle and foot (principal)
CPT/HCPCS: 36415; 85651; 86140; 96365

== ENCOUNTER 2022-11-10 12:52 | Day surgery (SDC) | payer OTHER ==
[2022-11-10] MEDS ORDERED: ERTAPENEM SODIUM 1 GM in SODIUM CHLORIDE 50 ML IVPB SCH (13:30)
[2022-11-10 14:18] VITALS: BP 132/46; PULSE 52; RESP 17; TEMP 98.1
== END 2022-11-10 14:21 | disposition home or self-care (01) ==
LOC: FINFUSION 12:52 → FM/S 12:53 → FINFUSION 14:21
PROVIDERS: ATTEND Internal Medicine Infectious Disease
DX: M86.8X7 Other osteomyelitis, ankle and foot (principal)
CPT/HCPCS: 96365

== ENCOUNTER 2022-11-11 13:07 | Day surgery (SDC) | payer OTHER ==
[2022-11-11] MEDS ORDERED: DALBAVANCIN HCL 1,500 MG in DEXTROSE 5%-WATER - 500 ML IVPB ONE (13:45)
[2022-11-11] MEDS ORDERED: ERTAPENEM SODIUM 1 GM in SODIUM CHLORIDE 50 ML IVPB ONE (14:00)
[2022-11-11 14:32] VITALS: BP 152/59; PULSE 55; RESP 17; TEMP 98.4
== END 2022-11-11 14:33 | disposition home or self-care (01) ==
LOC: FINFUSION 13:07 → FM/S 13:19 → FINFUSION 14:33
PROVIDERS: ATTEND Internal Medicine Infectious Disease
DX: M86.8X7 Other osteomyelitis, ankle and foot (principal)
CPT/HCPCS: 96365

== ENCOUNTER 2022-11-12 12:59 | Day surgery (SDC) | payer OTHER ==
[2022-11-12] MEDS ORDERED: ERTAPENEM SODIUM 1 GM in SODIUM CHLORIDE 50 ML IVPB ONE (13:30)
[2022-11-12 13:56] VITALS: RESP 18; TEMP 98.7
[2022-11-12 14:11] VITALS: BP 139/53; PULSE 60
== END 2022-11-12 14:10 | disposition home or self-care (01) ==
LOC: FINFUSION 12:59 → FM/S 13:00 → FINFUSION 14:10
PROVIDERS: ATTEND Internal Medicine Infectious Disease
DX: M86.8X7 Other osteomyelitis, ankle and foot (principal)
CPT/HCPCS: 96365

== ENCOUNTER 2022-11-13 12:41 | Day surgery (SDC) | payer OTHER ==
[2022-11-13 13:07] VITALS: RESP 18; TEMP 97.7
[2022-11-13] MEDS ORDERED: ERTAPENEM SODIUM 1 GM in SODIUM CHLORIDE 50 ML IVPB ONE (13:15)
[2022-11-13] MEDS ORDERED: DALBAVANCIN HCL 1,500 MG in DEXTROSE 5%-WATER - 500 ML IVPB ONE (13:30)
[2022-11-13 15:26] VITALS: BP 142/80; PULSE 77
== END 2022-11-13 15:26 | disposition home or self-care (01) ==
LOC: FM/S 12:41 → FINFUSION 12:41
PROVIDERS: ATTEND Internal Medicine Infectious Disease
DX: M86.8X7 Other osteomyelitis, ankle and foot (principal)
CPT/HCPCS: 96365; 96367; J0875

== ENCOUNTER 2022-11-14 12:53 | Day surgery (SDC) | payer OTHER ==
[2022-11-14] MEDS ORDERED: ERTAPENEM SODIUM 1 GM in SODIUM CHLORIDE 50 ML IVPB ONE (13:30)
[2022-11-14 15:12] VITALS: BP 152/62; PULSE 75; RESP 18; TEMP 98.5
== END 2022-11-14 15:12 | disposition home or self-care (01) ==
LOC: FINFUSION 12:53 → FM/S 12:54 → FINFUSION 15:12
PROVIDERS: ATTEND Internal Medicine Infectious Disease
DX: M86.8X7 Other osteomyelitis, ankle and foot (principal)
CPT/HCPCS: 96365

== ENCOUNTER 2022-11-15 12:53 | Day surgery (SDC) | payer OTHER ==
[2022-11-15] MEDS ORDERED: ERTAPENEM SODIUM 1 GM in SODIUM CHLORIDE 50 ML IVPB ONE (13:15)
[2022-11-15 13:56] VITALS: BP 129/58; PULSE 68; RESP 17; TEMP 98.3
== END 2022-11-15 13:56 | disposition home or self-care (01) ==
LOC: FINFUSION 12:53 → FM/S 12:55 → FINFUSION 13:56
PROVIDERS: ATTEND Internal Medicine Infectious Disease
DX: M86.8X7 Other osteomyelitis, ankle and foot (principal)
CPT/HCPCS: 96365

== ENCOUNTER 2022-11-16 12:56 | Day surgery (SDC) | payer OTHER ==
[2022-11-16] MEDS ORDERED: ERTAPENEM SODIUM 1 GM in SODIUM CHLORIDE 50 ML IVPB ONE (13:45)
[2022-11-16 14:29] VITALS: BP 138/75; PULSE 69; RESP 16; TEMP 98.4
== END 2022-11-16 14:31 | disposition home or self-care (01) ==
LOC: FINFUSION 12:56 → FM/S 13:04 → FINFUSION 14:31
PROVIDERS: ATTEND Internal Medicine Infectious Disease
DX: M86.8X7 Other osteomyelitis, ankle and foot (principal)
CPT/HCPCS: 36415; 85651; 86140; 96365

== ENCOUNTER 2022-11-17 13:17 | Day surgery (SDC) | payer OTHER ==
[2022-11-17] MEDS ORDERED: ERTAPENEM SODIUM 1 GM in SODIUM CHLORIDE 50 ML IVPB SCH (13:45)
[2022-11-17 14:44] VITALS: BP 136/58; PULSE 60; RESP 18; TEMP 98.3
== END 2022-11-17 14:30 | disposition home or self-care (01) ==
LOC: FINFUSION 13:17 → FM/S 13:18 → FINFUSION 14:30
PROVIDERS: ATTEND Internal Medicine Infectious Disease
DX: M86.8X7 Other osteomyelitis, ankle and foot (principal)
CPT/HCPCS: 96365

== ENCOUNTER 2022-11-18 12:47 | Day surgery (SDC) | payer OTHER ==
[2022-11-18] MEDS ORDERED: ERTAPENEM SODIUM 1 GM in SODIUM CHLORIDE 50 ML IVPB ONE (13:30)
[2022-11-18 14:07] VITALS: BP 135/59; PULSE 57; RESP 20; TEMP 98.2
== END 2022-11-18 13:40 | disposition home or self-care (01) ==
LOC: FINFUSION 12:47 → FM/S 12:54 → FINFUSION 13:40
PROVIDERS: ATTEND Internal Medicine Infectious Disease
DX: M86.8X7 Other osteomyelitis, ankle and foot (principal)
CPT/HCPCS: 96365

== ENCOUNTER 2022-11-19 12:47 | Day surgery (SDC) | payer OTHER ==
[2022-11-19] MEDS ORDERED: ERTAPENEM SODIUM 1 GM in SODIUM CHLORIDE 50 ML IVPB ONE (14:00)
[2022-11-19 14:44] VITALS: BP 128/47; PULSE 52; RESP 19; TEMP 98.1
== END 2022-11-19 14:10 | disposition home or self-care (01) ==
LOC: FINFUSION 12:47 → FM/S 12:53 → FINFUSION 14:10
PROVIDERS: ATTEND Internal Medicine Infectious Disease
DX: M86.8X7 Other osteomyelitis, ankle and foot (principal)
CPT/HCPCS: 96365

== ENCOUNTER 2022-11-20 12:48 | Day surgery (SDC) | payer OTHER ==
[2022-11-20] MEDS ORDERED: ERTAPENEM SODIUM 1 GM in SODIUM CHLORIDE 50 ML IVPB ONE (13:00)
[2022-11-20 13:14] VITALS: RESP 18; TEMP 97.6
[2022-11-20 13:31] VITALS: BP 140/52; PULSE 86
== END 2022-11-20 13:31 | disposition home or self-care (01) ==
LOC: FINFUSION 12:48 → FM/S 12:49 → FINFUSION 13:31
PROVIDERS: ATTEND Internal Medicine Infectious Disease
DX: M86.8X7 Other osteomyelitis, ankle and foot (principal)
CPT/HCPCS: 96365

== ENCOUNTER 2022-11-21 12:46 | Day surgery (SDC) | payer OTHER ==
[2022-11-21] MEDS ORDERED: ERTAPENEM SODIUM 1 GM in SODIUM CHLORIDE 50 ML IVPB ONE (13:30)
[2022-11-21 13:32] VITALS: BP 129/58; PULSE 54; RESP 18; TEMP 98
== END 2022-11-21 14:00 | disposition home or self-care (01) ==
LOC: FM/S 12:46 → FINFUSION 12:46 → FM/S 12:53 → FINFUSION 14:00
PROVIDERS: ATTEND Internal Medicine Infectious Disease
DX: M86.8X7 Other osteomyelitis, ankle and foot (principal)
CPT/HCPCS: 96365

== ENCOUNTER 2022-11-22 13:09 | Day surgery (SDC) | payer OTHER ==
[2022-11-22] MEDS ORDERED: ERTAPENEM SODIUM 1 GM in SODIUM CHLORIDE 50 ML IVPB ONE (13:30)
[2022-11-22 17:19] VITALS: BP 138/60; PULSE 62; RESP 18; TEMP 98.1
== END 2022-11-22 14:25 | disposition home or self-care (01) ==
LOC: FINFUSION 13:09 → FM/S 13:11 → FINFUSION 14:25
PROVIDERS: ATTEND Internal Medicine Infectious Disease
DX: M86.8X7 Other osteomyelitis, ankle and foot (principal)
CPT/HCPCS: 96365

== ENCOUNTER 2022-11-23 12:48 | Day surgery (SDC) | payer OTHER ==
[2022-11-23] MEDS ORDERED: ERTAPENEM SODIUM 1 GM in SODIUM CHLORIDE 50 ML IVPB ONE (13:15)
[2022-11-23 14:36] VITALS: BP 140/52; PULSE 82; RESP 18; TEMP 97.6
== END 2022-11-23 14:39 | disposition home or self-care (01) ==
LOC: FM/S 12:48 → FINFUSION 12:48
PROVIDERS: ATTEND Internal Medicine Infectious Disease
DX: M86.8X7 Other osteomyelitis, ankle and foot (principal)
CPT/HCPCS: 36415; 85651; 86140; 96365

== ENCOUNTER 2022-11-24 12:52 | Day surgery (SDC) | payer OTHER ==
[2022-11-24] MEDS ORDERED: ERTAPENEM SODIUM 1 GM in SODIUM CHLORIDE 50 ML IVPB SCH (13:15)
[2022-11-24 13:23] VITALS: BP 136/52; PULSE 84; RESP 18; TEMP 97.6
== END 2022-11-24 14:00 | disposition home or self-care (01) ==
LOC: FINFUSION 12:52 → FM/S 12:55 → FINFUSION 14:00
PROVIDERS: ATTEND Internal Medicine Infectious Disease
DX: M86.8X7 Other osteomyelitis, ankle and foot (principal)
CPT/HCPCS: 96365

== ENCOUNTER 2022-11-25 12:36 | Day surgery (SDC) | payer OTHER ==
[2022-11-25] MEDS ORDERED: ERTAPENEM SODIUM 1 GM in SODIUM CHLORIDE 50 ML IVPB SCH (13:00)
[2022-11-25 13:50] VITALS: BP 138/74; PULSE 65; RESP 18; TEMP 98.3
== END 2022-11-25 13:58 | disposition home or self-care (01) ==
LOC: FINFUSION 12:36 → FM/S 12:41 → FINFUSION 13:58
PROVIDERS: ATTEND Internal Medicine Infectious Disease
DX: M86.8X7 Other osteomyelitis, ankle and foot (principal)
CPT/HCPCS: 96365

== ENCOUNTER 2022-11-26 12:41 | Day surgery (SDC) | payer OTHER ==
[2022-11-26] MEDS ORDERED: ERTAPENEM SODIUM 1 GM in SODIUM CHLORIDE 50 ML IVPB SCH (13:00)
[2022-11-26 13:09] VITALS: RESP 18; TEMP 98.5
[2022-11-26 13:30] VITALS: BP 140/82; PULSE 76
== END 2022-11-26 13:30 | disposition home or self-care (01) ==
LOC: FINFUSION 12:41 → FM/S 12:42 → FINFUSION 13:30
PROVIDERS: ATTEND Internal Medicine Infectious Disease
DX: M86.8X7 Other osteomyelitis, ankle and foot (principal)
CPT/HCPCS: 96365

== ENCOUNTER 2022-11-27 12:32 | Day surgery (SDC) | payer OTHER ==
[2022-11-27] MEDS ORDERED: ERTAPENEM SODIUM 1 GM in SODIUM CHLORIDE 50 ML IVPB ONE (13:00)
[2022-11-27 13:36] VITALS: BP 162/54; PULSE 65; RESP 18; TEMP 98.3
== END 2022-11-27 13:40 | disposition home or self-care (01) ==
LOC: FINFUSION 12:32 → FM/S 12:33 → FINFUSION 13:40
PROVIDERS: ATTEND Internal Medicine Infectious Disease
DX: M86.8X7 Other osteomyelitis, ankle and foot (principal)
CPT/HCPCS: 96365

== ENCOUNTER 2022-11-28 12:55 | Day surgery (SDC) | payer OTHER ==
[2022-11-28] MEDS ORDERED: ERTAPENEM SODIUM 1 GM in SODIUM CHLORIDE 50 ML IVPB ONE ×2 (13:45→13:50)
[2022-11-28 16:53] VITALS: BP 96/53; PULSE 68; RESP 18; TEMP 98.4
== END 2022-11-28 14:46 | disposition home or self-care (01) ==
LOC: FINFUSION 12:55 → FM/S 12:56 → FINFUSION 14:46
PROVIDERS: ATTEND Internal Medicine Infectious Disease
DX: M86.8X7 Other osteomyelitis, ankle and foot (principal)
CPT/HCPCS: 96365

== ENCOUNTER 2022-11-29 12:57 | Day surgery (SDC) | payer OTHER ==
[2022-11-29] MEDS ORDERED: ERTAPENEM SODIUM 1 GM in SODIUM CHLORIDE 50 ML IVPB ONE (13:15)
[2022-11-29 14:13] VITALS: BP 116/60; PULSE 66; RESP 18; TEMP 97.6
== END 2022-11-29 14:13 | disposition home or self-care (01) ==
LOC: FINFUSION 12:57 → FM/S 12:58 → FINFUSION 14:13
PROVIDERS: ATTEND Internal Medicine Infectious Disease
DX: M86.8X7 Other osteomyelitis, ankle and foot (principal)
CPT/HCPCS: 96365

== ENCOUNTER 2022-11-30 12:36 | Day surgery (SDC) | payer OTHER ==
[2022-11-30] MEDS ORDERED: ERTAPENEM SODIUM 1 GM in SODIUM CHLORIDE 50 ML IVPB ONE (13:15)
[2022-11-30 14:03] VITALS: BP 132/53; PULSE 50; RESP 18; TEMP 97.9
== END 2022-11-30 14:04 | disposition home or self-care (01) ==
LOC: FINFUSION 12:36 → FM/S 12:37 → FINFUSION 14:04
PROVIDERS: ATTEND Internal Medicine Infectious Disease
DX: M86.8X7 Other osteomyelitis, ankle and foot (principal)
CPT/HCPCS: 36415; 85651; 86140; 96365

== ENCOUNTER 2022-12-01 10:59 | Day surgery (SDC) | payer OTHER ==
[2022-12-01] MEDS ORDERED: ERTAPENEM SODIUM 1 GM in SODIUM CHLORIDE 50 ML IVPB SCH (11:15)
[2022-12-01 11:49] VITALS: BP 126/55; PULSE 68; RESP 18; TEMP 98.7
== END 2022-12-01 11:49 | disposition home or self-care (01) ==
LOC: FINFUSION 10:59 → FM/S 11:00 → FINFUSION 11:49
PROVIDERS: ATTEND Internal Medicine Infectious Disease
DX: M86.8X7 Other osteomyelitis, ankle and foot (principal)
CPT/HCPCS: 96365

== ENCOUNTER 2022-12-02 12:39 | Day surgery (SDC) | payer OTHER ==
[2022-12-02] MEDS ORDERED: ERTAPENEM SODIUM 1 GM in SODIUM CHLORIDE 50 ML IVPB ONE (13:00)
[2022-12-02 13:55] VITALS: BP 123/57; PULSE 59; RESP 16; TEMP 97.9
== END 2022-12-02 13:56 | disposition home or self-care (01) ==
LOC: FINFUSION 12:39 → FM/S 12:40 → FINFUSION 13:56
PROVIDERS: ATTEND Internal Medicine Infectious Disease
DX: M86.8X7 Other osteomyelitis, ankle and foot (principal)
CPT/HCPCS: 96365

== ENCOUNTER 2022-12-03 12:45 | Day surgery (SDC) | payer OTHER ==
[2022-12-03] MEDS ORDERED: ERTAPENEM SODIUM 1 GM in SODIUM CHLORIDE 50 ML IVPB ONE (14:00)
[2022-12-03 14:34] VITALS: BP 135/86; PULSE 97; RESP 18; TEMP 98.2
== END 2022-12-03 14:38 | disposition home or self-care (01) ==
LOC: FINFUSION 12:45 → FM/S 12:47 → FINFUSION 14:38
PROVIDERS: ATTEND Internal Medicine Infectious Disease
DX: M86.8X7 Other osteomyelitis, ankle and foot (principal)
CPT/HCPCS: 96365

== ENCOUNTER 2023-11-08 13:29 | Emergency (ER) | payer OTHER ==
[2023-11-08 14:36] VITALS: RESP 18; TEMP 98.2; BMI 36.6
[2023-11-08] MEDS ORDERED: ACETAMINOPHEN INJECTION 100 ML IVPB ONE (15:09)
[2023-11-08] MEDS ORDERED: ONDANSETRON 4 MG/2 ML VIAL ONE (15:09)
[2023-11-08] MEDS: ACETAMINOPHEN 1000 MG/100 ML BAG IVPB ONE (15:40)
[2023-11-08] MEDS: ONDANSETRON 4 MG/2 ML VIAL IVPUSH ONE (15:40)
[2023-11-08 16:02] LABS: BASO % 0.9 % (0-2.0); EOS % 0.5 % (0-4.5); HEMATOCRIT 37.7 % (32.4-45.2); HEMOGLOBIN 12.6 GM/dL (10.7-15.3); LYMPH % 13.9 % (8-40); MCH 30.3 pg (25.7-33.7); MCHC 33.4 g/dl (32.0-36.0); MEAN CELL VOLUME 90.8 fl (80-96); MEAN PLT VOLUME 9.5 fl (7.5-11.1); MONO % 6.6 % (3.8-10.2); NEUT % 78.1 % (42.8-82.8); PLATELET COUNT 289 10^3/uL (134-434); RBC 4.15 M/mm3 (3.60-5.2); RDW 14.3 % (11.6-15.6); WHITE BLOOD COUNT 12.9 K/mm3 (4.0-10.0)
[2023-11-08 16:08] LABS: EPI CELLS 2 /uL (0-25.1); HYALINE CASTS 0 /uL (0-3.1); PH,URINE 5.5 (5.0-8.0); URINE APPEARANCE TURBID; URINE BACTERIA 4228 /uL (0-1359); URINE BILIRUBIN NEGATIVE (NEGATIVE); URINE COLOR YELLOW; URINE GLUCOSE (UA) NEGATIVE (NEGATIVE); URINE KETONE NEGATIVE (NEGATIVE); URINE LEUK ESTERASE 3+ (NEGATIVE); URINE NITRITE NEGATIVE (NEGATIVE); URINE PROTEIN 2+ (NEGATIVE); URINE RBC 91 /uL (0-23.9); URINE UROBILINOGEN 0.2 mg/dL (0.2-1.0); URINE WBC 5165 /uL (0-25.8)
[2023-11-08 16:27] LABS: POTASSIUM 4.5 mmol/L (3.5-5.1)
[2023-11-08 16:30] LABS: BLOOD UREA NITROGEN 37.6 mg/dL (7-18); CALCIUM 9.3 mg/dL (8.5-10.1)
[2023-11-08 16:32] LABS: CREATININE 1.3 mg/dL (0.55-1.3)
[2023-11-08 16:33] LABS: BILIRUBIN,TOTAL 0.5 mg/dL (0.2-1)
[2023-11-08 16:35] LABS: TOT PROT 7.5 g/dl (6.4-8.2)
[2023-11-08] MEDS ORDERED: morphine SULFATE 4 MG/ML VIAL ONE (18:37)
[2023-11-08] MEDS: morphine CARPU-JECT 4 MG/1 ML DISP.SYRIN IVPUSH ONE (18:43)
[2023-11-08] MEDS ORDERED: SULFAMETHOXAZOLE/TRIMETHOPRIM 800MG/160MG D.S. TABLET ONE (19:38)
[2023-11-08] MEDS: SULFAMETHOXAZOLE/TRIMETHOPRIM 800MG/160MG D.S. TABLET PO ONE (19:42)
[2023-11-08 20:10] VITALS: BP 137/58; PULSE 60
== END 2023-11-08 20:52 | disposition home or self-care (01) ==
LOC: JER 13:29
PROC: 3E033NZ Introduction of Analgesics, Hypnotics, Sedatives into Peripheral Vein, Percutaneous Approach (ICD-10-PCS; principal; 2023-11-08)
PROC: 3E033NZ Introduction of Analgesics, Hypnotics, Sedatives into Peripheral Vein, Percutaneous Approach (ICD-10-PCS; 2023-11-08)
PROC: 3E033GC Introduction of Other Therapeutic Substance into Peripheral Vein, Percutaneous Approach (ICD-10-PCS; 2023-11-08)
DX: R10.12 Left upper quadrant pain (principal); R11.0 Nausea; K59.00 Constipation, unspecified; R31.9 Hematuria, unspecified; N39.0 Urinary tract infection, site not specified
CPT/HCPCS: 36415; 74177-TC; 80053; 81003; 83605; 83690; 85025; 87086; 87186; 93005; 93010; 96374; 96375; 99285-25; J0131; Q9967